=== PATIENT | female | born 1990 | race African-American/Black ===

== ENCOUNTER 2016-09-30 01:49 | Emergency (ER) | payer SELFPAY ==
[2016-09-30] MEDS ORDERED: Acetaminophen 500 MG TAB ONE (02:09)
[2016-09-30] MEDS ORDERED: Ketorolac Tromethamine 30 MG/ML VIAL ONE (02:09)
[2016-09-30] MEDS ORDERED: Ondansetron HCl/PF 4 MG/2 ML Vial ONE (02:09)
[2016-09-30] MEDS ORDERED: Sodium Chloride 0.9% 1,000 ML ONE ×2 (02:09→03:11)
[2016-09-30 02:24] LABS: Bilirubin Negative (Negative); Blood, Urine Negative (Negative); Glucose, Urine (Dipstick) Negative (Negative); Ketone, Urine Negative (Negative); Nitrite Negative (Negative); Protein, Urine (Dipstick) Negative (Neg-Trace)
[2016-09-30 02:32] LABS: Methadone Not Detected (NotDetected); Methamphetamine Not Detected (NotDetected)
[2016-09-30 02:33] LABS: ALT (SGPT) 39 U/L (0-55); AST (SGOT) 32 U/L (5-34); Alkaline Phosphatase 55 U/L (40-150); Anion Gap 13 mmol/L (10-20); BUN (Urea Nitrogen) 9 mg/dL (7.0-18.7); Bilirubin, Total 1.7 mg/dL (0.2-1.2); Calc. Creatinine Clearance 0 mL/min (70-130); Carbon Dioxide 21 mmol/L (22-29); Chloride 107 mmol/L (98-107); Estimated GFR-MDRD Greater than 90; Globulin 3.3 g/dL (2.4-3.5); Protein, Total 7.6 g/dL (6.0-8.3)
[2016-09-30 02:43] LABS: Reticulocyte Count 5.2 % (0.5-1.5)
[2016-09-30 02:56] LABS: Hematocrit 29.9 % (36.0-47.0); Red Blood Cell (RBC) Count 3.69 mill/uL (4.20-5.40); White Blood Cell (WBC) Count 20.2 thou/uL (4.8-10.8)
[2016-09-30 02:57] LABS: Band 9 % (5-11); Mean Platelet Volume 6.2 fL (7.4-10.4); Neutrophil 57 % (42-75)
[2016-09-30 02:58] LABS: Hypochromia MODERATE=16-30 cells (100X) (0-5/hpf); Polychromasia SLIGHT = 2-3 cells (100X) (0-2/hpf); Target Cells MODERATE= 6-15 cells (100X) (0-1/hpf)
[2016-09-30] MEDS ORDERED: HYDROcodone/Acetaminophen 10/325 mg Tablet ONE (03:11)
[2016-09-30] MEDS ORDERED: traMADol HCl 50 MG TAB ONE (03:11)
--- NOTE | 2016-09-30 03:32 | ERRECORD ---
[facility] EMERGENCY RECORD HPI SICKLE CELL (02:06 AGRE) CHIEF COMPLAINT: Patient presents for evaluation of sickle cell crisis. HISTORIAN: History provided by patient, HX OF SICKLE CELL DISEASE AND HAVING PAIN IN BOTH LEGS DUE TO THE CHANGE OF THE WEATHER. DENIES OTHER SYMPTOMS. HAS NOT TAKEN HER PAIN MEDS TODAY BECAUSE WAS AT WORK. PAIN STARTED AROUND 3 PM IN AFTERNOON. LOCATION: No localizing symptoms. QUALITY: Pain is dull in nature, described as aching, described as throbbing. SEVERITY: Maximum severity of symptoms severe, Currently symptoms are severe. TIME COURSE: Gradual onset of symptoms, Symptoms are worsening. CONTEXT: Patient has sickle cell. ASSOCIATED WITH FEMALE: No associated symptoms, No associated nausea, No associated urinary tract infection signs or symptoms, No associated vomiting. EXACERBATED BY: Patient's condition exacerbated by nothing. RELIEVED BY: Patient's condition relieved by nothing. ROS (02:08 AGRE) CONSTITUTIONAL: Historian denies chills, denies fever, denies weakness. EYES: Historian denies eye redness, denies vision changes. ENT: Historian denies sore throat, denies stridor. CARDIOVASCULAR: Historian denies chest pain, denies diaphoresis. RESPIRATORY: Historian denies cough, denies shortness of breath. GI: Historian denies abdominal pain, denies nausea, denies vomiting. MUSCULOSKELETAL: Historian denies back pain, denies neck pain. SKIN: Historian denies skin changes, denies skin lesions. NEUROLOGIC: Historian denies confusion, denies dizziness, denies focal weakness, denies headache. HEMO/LYMPHATIC: Normal hematologic/lymphatic system review, Historian denies petechiae. PSYCHIATRIC: Negative psychiatric review of systems, Historian denies anxiety. PAST MEDICAL HISTORY (:57 [facility]) MEDICAL HISTORY: Flu vaccine up to date, Tetanus immunization up to date, Past medical history includes hematological history, sickle cell disease. 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 Verified 09/30/16. FEMALE SURGICAL HISTORY: Surgical history of section X2, Surgical history of tonsillectomy. Verified 09/30/16. PSYCHIATRIC HISTORY: No previous psychiatric history. Verified 09/30/16. SOCIAL HISTORY: Patient denies alcohol use, Patient denies drug use, Patient has no smoking history, Lives at home, with family, Verified 09/30/16. FAMILY HISTORY: No known family hisotry, Family history is &a-1R&a+25V*p+0X*q2647O*c202B*c15G*c2P*p-0X&a-25V&a+1R Name: Michelle Kumar : 1990 F26 MedRec: [id number] AcctNum: [id number] Prepared: WedSep 30, 2016 04:41 by Interface Page 1 of 4 pMD [facility] EMERGENCY RECORD non-contributory to this case. KNOWN ALLERGIES No Known Allergies (Unconfirmed) No Known Drug Allergies CURRENT MEDICATIONS (01:54 [facility]) acetaminophen-codeine: TABLET : Strength - 300 mg-30 mg : ORAL Patient Dose: 1-2 tab(s) Oral every 6 hours PRN. Ultram: TABLET : Strength - 50 mg : ORAL Patient Dose: 1 tab(s) Oral every 6 hours PRN. VITAL SIGNS VITAL SIGNS: Resp: 18, Pain: 10 (Sharp), Time: 09/30/2016 01:51. (01:51 [facility]) BP: 121/67, Pulse: 84, Temp: 98.5 (Oral), O2 sat: 100 on Room Air, Time: 09/30/2016 01:54. (01:54 [facility]) BP: 117/76, Pulse: 60, Resp: 16, O2 sat: 99 on Room Air, Time: 09/30/2016 02:30. (02:30 [facility]) Pain: 7, Time: 09/30/2016 02:39. (02:39 [facility]) BP: 111/59, Pulse: 57, Resp: 16, O2 sat: 98 on Room Air, Time: 09/30/2016 03:00. (03:00 [facility]) Pain: 7, Time: 09/30/2016 03:10. (03:10 [facility]) BP: 110/61, Pulse: 66, Resp: 16, O2 sat: 100 on Room Air, Time: 09/30/2016 03:30. (03:30 [facility]) BP: 128/68, Pulse: 65, Resp: 16, O2 sat: 97 on Room Air, Time: 09/30/2016 04:00. (04:00 [facility]) BP: 126/70, Pulse: 64, Resp: 16, O2 sat: 100 on Room Air, Time: 09/30/2016 04:30. (04:30 [facility]) Temp: 98.1 (Oral), Pain: 0, Time: 09/30/2016 04:35. (04:35 [facility]) PHYSICAL EXAM (02:08 [facility]) CONSTITUTIONAL: Vital Signs Reviewed, Patient afebrile, Patient appears non toxic, Patient appears pain free, Patient alert and oriented to person, place and time, Nursing notes reviewed. HEAD: Head exam included findings of head atraumatic, normocephalic. EYES: Eye exam included findings of eyelids normal to inspection, Extraocular muscles intact, Conjunctiva normal, Sclera normal. ENT: Ear exam normal, Nose exam normal, Mouth exam normal. NECK: Neck exam normal, Neck exam included findings of normal range of motion, no meningeal signs. RESPIRATORY CHEST: Respiratory and chest exam normal, Respiratory exam included findings of no respiratory distress, Breath sounds clear, No wheezing, No rales, No rhonchi, Breath sounds not diminished. CARDIOVASCULAR: Cardiovascular assessment normal, Cardiovascular exam included findings of heart rate regular rate and rhythm, Heart &a-1R&a+25V*p+0X*o5106K*c202B*c15G*c2P*p-0X&a-25V&a+1R Name: Michelle Kumar : 1990 F26 MedRec: [id number] AcctNum: [id number] Prepared: WedSep 30, 2016 04:41 by Interface Page 2 of 4 pMD [facility] EMERGENCY RECORD sounds normal, normal S1, normal S2, no murmurs, no rub, no gallop. ABDOMEN FEMALE: Abdominal exam normal, Abdominal exam included findings of abdomen nontender, Bowel sounds normal, Liver normal, Spleen normal, no distension, no mass, no pulsatile masses. BACK: Back exam included findings of normal inspection, range of motion normal. UPPER EXTREMITY: Upper extremity exam included findings of inspection normal, Range of motion normal. LOWER EXTREMITY: Lower extremity exam included findings of inspection normal, Range of motion normal, Motor strength normal, Pedal pulse normal, Stephany's negative, no cyanosis, no clubbing, no edema, no calf tenderness, NO TENDERNESS TO PALPATION, NO SWELLING OR REDNESS OVER THE JOINTS OR PAIN WITH R.O.M. OF THE JOINTS. NEURO: Neuro exam normal, Neuro exam findings include patient oriented to person, place and time, Speech normal, Memory normal, Cranial nerves intact, no focal motor deficits. SKIN: Skin exam included findings of skin warm, dry, and normal in color. PSYCHIATRIC: Psychiatric exam normal, Normal affect. MEDICATION ADMINISTRATION SUMMARY Drug Name: sodium chloride 0.9 % intravenous, Dose Ordered: 1000 mL, Route: IV Fluid Infusion, Status: Given, Time: 03:17 09/30/2016, Drug Name: HYDROcodone-acetaminophen, Dose Ordered: 10/325 tab(s), Route: Oral, Status: Given, Time: 03:15 09/30/2016, Drug Name: Tylenol Extra Strength, Dose Ordered: 1000 mg, Route: Oral, Status: Given, Time: 02:20 09/30/2016, Drug Name: morphine injection, Dose Ordered: 4 mg, Route: IV Push, Status: Given, Time: 02:15 09/30/2016, Drug Name: ondansetron HCl intravenous, Dose Ordered: 4 mg, Route: IV Push, Status: Given, Time: 02:15 09/30/2016, Drug Name: ketorolac injection, Dose Ordered: 30 mg, Route: IV Push, Status: Given, Time: 02:13 09/30/2016, Drug Name: sodium chloride 0.9 % intravenous, Dose Ordered: 1000 mL, Route: IV Fluid Infusion, Status: Given, Time: 02:11 09/30/2016, Detailed record available in Medication Service section. DOCTOR NOTES RE-EVALUATION: Routine re-evaluation, after administration of analgesics, The patient's condition has improved. (02:52 AGRE) Routine re-evaluation, after administration of analgesics, The patient's condition has improved. (03:18 AGRE) TEXT: VS STABLE AND PATIENT IS COMFORTABLE AFTER MEDICATION WITH MORPHINE. IS VERY DROWSY. LOOKS MUCH BETTER. (02:52 AGRE) DISCUSSED WITH HER FINDINGS ON EXAM, RESULTS OF LABS, PENDING BLOOD CULTURES, MANAGEMENT OF HER PAIN, NEED FOR FOLLOW UP. SHE EXPRESSED UNDERSTANDING AND AGREEMENT WITH THIS PLAN. (03:18 AGRE) PATIENT STATUS: Patient has improved since arrival to emergency &a-1R&a+25V*p+0X*n5239X*c202B*c15G*c2P*p-0X&a-25V&a+1R Name: Michelle Kumar : 1990 F26 MedRec: [id number] AcctNum: [id number] Prepared: WedSep 30, 2016 04:41 by Interface Page 3 of 4 pMD [facility] EMERGENCY RECORD department. (02:52 AGRE) Patient has improved since arrival to emergency department. (03:18 AGRE) PATIENT PLAN: The patient will be discharged. (03:18 AGRE) DATA REVIEWED: Old records obtained, Old records reviewed, Lab data reviewed. PATIENT HAS PREVIOUS EPISODES OF LEUKOCYTOSIS WITH HER PAIN CRISIS. SINCE SHE HAS NO OTHER SYMPTOMS DOUBT INFECTIOUS ETIOLOGY BUT WILL SEND BLOOD CULTURES TO VERIFY. (02:52 AGRE) PROBLEM LIST No recorded problems DIAGNOSIS (02:51 AGRE) FINAL: PRIMARY: Sickle cell crisis. PRESCRIPTION No recorded prescriptions DISPOSITION PATIENT: Disposition Type: Discharge, Disposition: *Discharge Home, Condition: Improved. (03:16 AGRE) Patient left the department. (04:38 [facility]) Mccain: AGRE=MD Roney, Ricardo RC=JENNIFER Remy, Fouzia &a-1R&a+25V*p+0X*g5457R*c202B*c15G*c2P*p-0X&a-25V&a+1R Name: Michelle Kumar : 1990 F26 MedRec: [id number] AcctNum: [id number] Prepared: WedSep 30, 2016 04:41 by Interface Page 4 of 4 pMD [facility]TDD
--- NOTE | 2016-09-30 03:40 | PICIS ---
[facility] EMERGENCY RECORD TRIAGE (WedSep 30, 2016 01:54 [facility]) TRIAGE NOTES: SICKLE CELL CRISIS. C/O BILATERAL LEG PAIN SINCE NOON YESTERDAY (09/29/15). VOMITED X1 AT 2PM DUE TO PAIN PER PT. (WedSep 30, 2016 01:54 [facility]) PATIENT: NAME: Michelle Kumar, AGE: 26, GENDER: female, : [facility] 1990, TIME OF GREET: WedSep 30, 2016 01:50, PREFERRED LANGUAGE: Lebanese, ETHNICITY: Not or , HIGH ALERT: HIGH ALERT 3, ECODE BILLING MAP: [facility], SSN: [id number], Zip Code: [address], KG WEIGHT: 74.21, PHONE: , , , PERSON ID: [id number], PCP: Gela Ness, /[place]. (WedSep 30, 2016 01:54 [facility]) COMPLAINT: SICKLE CELL. (WedSep 30, 2016 01:54 [facility]) ADMISSION: URGENCY: 3 Urgent, ADMISSION SOURCE: Home, TRANSPORT: CAR, BED: ER -04. (WedSep 30, 2016 01:54 [facility]) PAIN: Patient complains of pain described as, sharp, on a scale 0-10 patient rates pain as 10, Location BILATERAL LEGS, Pain is constant, Onset was 09/29/2016 12:00. (01:57 [facility]) IMMUNIZATIONS: Flu vaccine up to date, Tetanus immunization up to date. (01:57 [facility]) SIRS SCORING: Heart Rate 55-109 (0), Temp range 96.8-101.1 (0), respiratory rate 12-24 (0), Mental Status altered: no (0). (01:57 [facility]) TRIAGE SCREENING: Patient denies suicidal ideation, Patient denies presence of domestic violence. (01:57 [facility]) TREATMENTS IN PROGRESS: Treatments given Prehospital: NONE. (01:57 [facility]) PROVIDERS: TRIAGE NURSE: Fouzia Remy RN. (WedSep 30, 2016 01:54 [facility]) VITAL SIGNS: Resp 18, Pain 10, (Sharp), Time 09/30/2016 01:51. (01:51 [facility]) BP 121/67, Pulse 84, Temp 98.5, (Oral), O2 Sat 100, on Room Air, Time 09/30/2016 01:54. (01:54 [facility]) PREVIOUS VISIT ALLERGIES: No Known Drug Allergies. (WedSep 30, 2016 01:54 [facility]) No Known Drug Allergies. (01:57 [facility]) KNOWN ALLERGIES No Known Allergies (Unconfirmed) No Known Drug Allergies CURRENT MEDICATIONS (01:54 [facility]) acetaminophen-codeine: TABLET : Strength - 300 mg-30 mg : ORAL Patient Dose: 1-2 tab(s) Oral every 6 hours PRN. Ultram: TABLET : Strength - 50 mg : ORAL Patient Dose: 1 tab(s) Oral every 6 hours PRN. &a-1R&a+25V*p+0X*t0273H*c202B*c15G*c2P*p-0X&a-25V&a+1R Name: Michelle Kumar : 1990 F26 MedRec: [id number] AcctNum: [id number] Prepared: WedSep 30, 2016 04:47 by Interface Page 1 of 10 pMD [facility] EMERGENCY RECORD VITAL SIGNS VITAL SIGNS: Resp: 18, Pain: 10 (Sharp), Time: 09/30/2016 01:51. (01:51 [facility]) BP: 121/67, Pulse: 84, Temp: 98.5 (Oral), O2 sat: 100 on Room Air, Time: 09/30/2016 01:54. (01:54 [facility]) BP: 117/76, Pulse: 60, Resp: 16, O2 sat: 99 on Room Air, Time: 09/30/2016 02:30. (02:30 [facility]) Pain: 7, Time: 09/30/2016 02:39. (02:39 [facility]) BP: 111/59, Pulse: 57, Resp: 16, O2 sat: 98 on Room Air, Time: 09/30/2016 03:00. (03:00 [facility]) Pain: 7, Time: 09/30/2016 03:10. (03:10 [facility]) BP: 110/61, Pulse: 66, Resp: 16, O2 sat: 100 on Room Air, Time: 09/30/2016 03:30. (03:30 [facility]) BP: 128/68, Pulse: 65, Resp: 16, O2 sat: 97 on Room Air, Time: 09/30/2016 04:00. (04:00 [facility]) BP: 126/70, Pulse: 64, Resp: 16, O2 sat: 100 on Room Air, Time: 09/30/2016 04:30. (04:30 [facility]) Temp: 98.1 (Oral), Pain: 0, Time: 09/30/2016 04:35. (04:35 [facility]) NURSING ASSESSMENT: EXTREMITY LOWER (01:58 [facility]) CONSTITUTIONAL: Complex assessment performed, Patient arrives, via hospital wheelchair, Unsteady gait, STANDBY ASSIST NEEDED DUE TO LEG WEAKNESS, History obtained from patient, Patient appears, in distress due to pain, Patient cooperative, Patient alert, Oriented to person, place and time, Skin warm, Skin dry, Skin normal in color, Mucous membranes pink, Mucous membranes moist, Patient is well-groomed, Patient complains of BILATERAL LEG PAIN, DUE TO SICKLE CELL. PAIN: sharp pain, to the left lower leg, to the right lower leg, Onset of pain 09/29/2016 12:00, constant, on a scale 0-10 patient rates pain as 10. LEFT LOWER EXTREMITY: Left lower extremity assessment findings include capillary refill less than 2 seconds, Skin color normal, Skin temperature warm, Distal sensation intact, Muscle tone normal, posterior tibia pulse is +3, dorsalis pedis pulse is +3, Inspection findings include no redness, Inspection findings include no swelling, Notes: NO TENDERNESS TO PALPATION. RIGHT LOWER EXTREMITY: Right lower extremity assessment findings include capillary refill less than 2 seconds, Skin color normal, Skin temperature warm, Distal sensation intact, Muscle tone normal, posterior tibia pulse is +3, dorsalis pedis pulse is +3, Inspection findings include no redness, Inspection findings include no swelling, Notes: NO TENDERNESS TO PALPATION. NOTES: Notes: PT STATES THE PAIN STARTED YESTERDAY AROUND 12PM. REPORTS 1 EPISODE OF VOMITING AT 2PM DUE TO SEVERE PAIN. PT STATES SHE WENT TO WORK AT 4PM AND THE PAIN CONTINUED TO GET WORSE. HER BOSS WOULD NOT ALLOW HER TO LEAVE EARLY PER PT. PT CAME TO ER STRAIGHT FROM HER JOB. SAFETY: Side rails up, Cart/Stretcher in lowest position, Family &a-1R&a+25V*p+0X*i1836C*c202B*c15G*c2P*p-0X&a-25V&a+1R Name: Michelle Kumar : 1990 F26 MedRec: [id number] AcctNum: [id number] Prepared: WedSep 30, 2016 04:47 by Interface Page 2 of 10 pMD [facility] EMERGENCY RECORD at bedside, Call light within reach, Hospital ID band on. NURSING PROCEDURE: DISCHARGE NOTE (04:37 [facility]) DISCHARGE: Patient discharged to home, ambulating without assistance, family driving, accompanied by //partner, Summary of Care printed/ provided, Discharge instructions given to patient, Simple or moderate discharge teaching performed, by JENNIFER Fragoso, discharge instructions reviewed with patient using teachback method. pt instructed to drink lots of fluids. continue Tylenol with codeine and take 600mg motrin Q6H in addition to prescription medications. follow up with PCP in the morning., Above person(s) verbalized understanding of discharge instructions and follow-up care. BELONGINGS: Belongings and valuables with patient upon arrival to the Emergency Department include:, Belongings and valuables with patient at time of discharge include:, Belongings remain with patient, Valuables remain with patient. NURSING PROCEDURE: IV PATIENT IDENITIFIER: Patient actively involved in identification process, Patient's identity verified by patient stating name, Patient's identity verified by patient stating date, Patient's identity verified by hospital ID bralisbethet. (02:00 [facility]) IV SITE 1: IV therapy indicated for hydration, IV therapy indicated for medication administration, IV established, to the right wrist, using a 22 gauge catheter, in one attempt, IV site prepped with Chloroprep, Saline lock established, Flushed with normal saline (mls): 10mLs, Labs drawn at time of placement, labeled in the presence of the patient and sent to lab, Notes: IV site C/D/I. no pain, redness, or swelling. IV start kit/extension tubing used. (02:00 [facility]) FOLLOW-UP SITE 1: After procedure, no drainage at IV site, After procedure, no swelling at IV site, After procedure, no redness at IV site, IV discontinued, due to patient being discharged, catheter intact. (04:32 [facility]) SAFETY: Side rails up, Cart/Stretcher in lowest position, Call light within reach, Hospital ID band on. (02:00 [facility]) NURSING PROCEDURE: NURSE NOTES NURSES NOTES: Notes: PILLOW AND WARM BLANKETS GIVEN TO PATIENT FOR COMFORT. (02:10 [facility]) Notes: PT RESTING IN BED WITH EYES CLOSED. WHEN ASKED IF SHE WAS FEELING BETTER PT SHOOK HER HEAD NO. RATES PAIN 7/10 AT THIS TIME. (02:38 [facility]) NURSING PROCEDURE: URINE COLLECTION (02:08 [facility]) PATIENT IDENTIFIER: Patient actively involved in identification process, Patient's identity verified by patient stating name, Patient's identity verified by patient stating date, Patient's identity verified by hospital ID bracelet. &a-1R&a+25V*p+0X*x1345V*c202B*c15G*c2P*p-0X&a-25V&a+1R Name: Michelle Kumar : 1990 F26 MedRec: [id number] AcctNum: [id number] Prepared: WedSep 30, 2016 04:47 by Interface Page 3 of 10 pMD [facility] EMERGENCY RECORD URINE COLLECTION FEMALE: Urine collected by void, urine yellow in color, and clear, Specimen labeled in the presence of the patient and sent to lab. SAFETY: Side rails up, Cart/Stretcher in lowest position, Call light within reach, Hospital ID band on. ORDER DETAILS Order Name: CBC with Differential, Status: Active, Time: 02:03 09/30/2016, User: CHRIS, - Ordered for: MD Sim Andrea, - Entered by: MD Sim Andrea - WedSep 30, 2016 02:03, - Quantity: 1, Order Name: Comprehensive Metabolic Panel, Status: Active, Time: 02:03 09/30/2016, User: CHRIS, - Ordered for: MD Sim Andrea, - Entered by: MD Sim Andrea - WedSep 30, 2016 02:03, - Quantity: 1, Order Name: Drug Screen, Urine, Status: Active, Time: 02:06 09/30/2016, User: CHRIS, - Ordered for: MD Sim Andrea, - Entered by: MD Sim Andrea - WedSep 30, 2016 02:06, - Quantity: 1, Order Name: Miscellaneous Nurse Order(s), Status: Done, Time: 03:18 09/30/2016, User: CRISTIAN, - Ordered for: MD Sim Andrea, - Entered by: MD Sim Andrea - WedSep 30, 2016 03:17, - Quantity: 1, Order Name: Test, Urine (BHCG), Status: Active, Time: 02:06 09/30/2016, User: CHRIS, - Ordered for: MD Sim Andrea, - Entered by: MD Sim Andrea - WedSep 30, 2016 02:06, - Quantity: 1, Order Name: Reticulocyte (RETIC) Count, Status: Active, Time: 02:03 09/30/2016, User: CHRIS, - Ordered for: MD Sim Andrea, - Entered by: MD Sim Andrea - WedSep 30, 2016 02:03, - Quantity: 1, Order Name: SALINE LOCK, Status: Done, Time: 02:06 09/30/2016, User: CRISTIAN, - Ordered for: MD Sim Andrea, - Entered by: MD Sim Andrea - WedSep 30, 2016 02:03, - Quantity: 1, Order Name: Urinalysis w/ Rflx Microscopic, Status: Active, Time: 02:06 09/30/2016, User: CHRIS, - Ordered for: MD Sim Andrea, - Entered by: MD Sim Andrea - WedSep 30, 2016 02:06, - Quantity: 1. MEDICATION ADMINISTRATION SUMMARY &a-1R&a+25V*p+0X*w6614F*c202B*c15G*c2P*p-0X&a-25V&a+1R Name: Michelle Kumar Peewee : 1990 F26 MedRec: [id number] AcctNum: [id number] Prepared: WedSep 30, 2016 04:47 by Interface Page 4 of 10 pMD [facility] EMERGENCY RECORD Drug Name: sodium chloride 0.9 % intravenous, Dose Ordered: 1000 mL, Route: IV Fluid Infusion, Status: Given, Time: 03:17 09/30/2016, Drug Name: HYDROcodone-acetaminophen, Dose Ordered: 10/325 tab(s), Route: Oral, Status: Given, Time: 03:15 09/30/2016, Drug Name: Tylenol Extra Strength, Dose Ordered: 1000 mg, Route: Oral, Status: Given, Time: 02:20 09/30/2016, Drug Name: morphine injection, Dose Ordered: 4 mg, Route: IV Push, Status: Given, Time: 02:15 09/30/2016, Drug Name: ondansetron HCl intravenous, Dose Ordered: 4 mg, Route: IV Push, Status: Given, Time: 02:15 09/30/2016, Drug Name: ketorolac injection, Dose Ordered: 30 mg, Route: IV Push, Status: Given, Time: 02:13 09/30/2016, Drug Name: sodium chloride 0.9 % intravenous, Dose Ordered: 1000 mL, Route: IV Fluid Infusion, Status: Given, Time: 02:11 09/30/2016, Detailed record available in Medication Service section. MEDICATION SERVICE HYDROcodone-acetaminophen: Order: HYDROcodone-acetaminophen (hydrocodone bitartrate/acetaminophen) - Dose: 10/325 tab(s) : Oral Ordered by: Ricardo Sim MD Entered by: Ricardo Sim MD WedSep 30, 2016 03:10 , Acknowledged by: Fouzia Remy RN WedSep 30, 2016 03:12 Documented as given by: Fouzia Remy RN WedSep 30, 2016 03:15 Patient, Medication, Dose, Route and Time verified prior to administration. Amount given: 10/325MG, Site: Medication administered P.O., Patient appears Slightly drowsey, easily aroused-acceptable, Correct patient, time, route, dose and medication confirmed prior to administration, Patient advised of actions and side-effects prior to administration, Allergies confirmed and medications reviewed prior to administration. ketorolac injection: Order: ketorolac injection (ketorolac tromethamine) - Dose: 30 mg : IV Push Ordered by: Ricardo Sim MD Entered by: Ricardo Sim MD WedSep 30, 2016 02:05 , Acknowledged by: Fouzia Remy RN WedSep 30, 2016 02:06 Documented as given by: Fouzia Remy RN WedSep 30, 2016 02:13 Patient, Medication, Dose, Route and Time verified prior to administration. Amount given: 30MG, IV SITE #1 IVP, initial medication, Slowly, Awake and alert- acceptable, Catheter placement confirmed via flush prior to administration, IV site without signs or symptoms of infiltration during medication administration, No swelling during administration, No drainage during administration, IV flushed after administration, Correct patient, time, route, dose and medication confirmed prior to administration, Patient advised of actions and side-effects prior to administration, Allergies confirmed and medications reviewed prior to administration. : Follow Up : No signs or symptoms of allergic reaction noted, &a-1R&a+25V*p+0X*i5597V*c202B*c15G*c2P*p-0X&a-25V&a+1R Name: Michelle Kumar : 1990 F26 MedRec: [id number] AcctNum: [id number] Prepared: WedSep 30, 2016 04:47 by Interface Page 5 of 10 pMD [facility] EMERGENCY RECORD Decreased pain, _IV SITE #1:_. (03:00 [facility]) morphine injection: Order: morphine injection (morphine sulfate) - Dose: 4 mg : IV Push Ordered by: Ricardo Sim MD Entered by: Ricardo Sim MD WedSep 30, 2016 02:04 , Acknowledged by: Fouzia Remy RN WedSep 30, 2016 02:06 Documented as given by: Fouzia Remy RN WedSep 30, 2016 02:15 Patient, Medication, Dose, Route and Time verified prior to administration. Amount given: 4MG, IV SITE #1 IVP, subsequent different medication, Slowly, Awake and alert- acceptable, Catheter placement confirmed via flush prior to administration, IV site without signs or symptoms of infiltration during medication administration, No swelling during administration, No drainage during administration, IV flushed after administration, Correct patient, time, route, dose and medication confirmed prior to administration, Patient advised of actions and side-effects prior to administration, Allergies confirmed and medications reviewed prior to administration. : Follow Up : No signs or symptoms of allergic reaction noted, Decreased pain, _IV SITE #1:_. (03:00 [facility]) ondansetron HCl intravenous: Order: ondansetron HCl intravenous (ondansetron HCl) - Dose: 4 mg : IV Push Ordered by: Ricardo Sim MD Entered by: Ricardo Sim MD WedSep 30, 2016 02:05 , Acknowledged by: Fouzia Remy RN WedSep 30, 2016 02:06 Documented as given by: Fouzia Remy RN WedSep 30, 2016 02:15 Patient, Medication, Dose, Route and Time verified prior to administration. Amount given: 4MG, IV SITE #1 IVP, subsequent different medication, Slowly, Awake and alert- acceptable, Catheter placement confirmed via flush prior to administration, IV site without signs or symptoms of infiltration during medication administration, No swelling during administration, No drainage during administration, IV flushed after administration, Correct patient, time, route, dose and medication confirmed prior to administration, Patient advised of actions and side-effects prior to administration, Allergies confirmed and medications reviewed prior to administration. sodium chloride 0.9 % intravenous: Order: sodium chloride 0.9 % intravenous (0.9 % sodium chloride) - Dose: 1000 mL : IV Fluid Infusion Ordered by: Ricardo Sim MD Entered by: Ricardo Sim MD WedSep 30, 2016 02:11 , Acknowledged by: Fouzia Remy RN WedSep 30, 2016 02:20 Documented as given by: Fouzia Remy RN WedSep 30, 2016 02:11 Patient, Medication, Dose, Route and Time verified prior to administration. IV SITE #1 IV fluids established for hydration, IV SITE #1 into right wrist, IV SITE #1 1st bag hung, amount 1 Liter hung, IV SITE #1 bolus of 1000 ml established, IV SITE #1 Rate of bolus, wide open, 1000 ml/hr, via primary tubing, via pump tubing, Awake and alert- &a-1R&a+25V*p+0X*k7998D*c202B*c15G*c2P*p-0X&a-25V&a+1R Name: Michelle Kumar : 1990 F26 MedRec: [id number] AcctNum: [id number] Prepared: WedSep 30, 2016 04:47 by Interface Page 6 of 10 pMD [facility] EMERGENCY RECORD acceptable, Catheter placement confirmed via flush prior to administration, IV site without signs or symptoms of infiltration during medication administration, No swelling during administration, No drainage during administration, IV flushed after administration, Correct patient, time, route, dose and medication confirmed prior to administration, Patient advised of actions and side-effects prior to administration, Allergies confirmed and medications reviewed prior to administration. : Follow Up : No signs or symptoms of allergic reaction noted, _IV SITE #1:_, IV fluid infusion discontinued, on WedSep 30, 2016 03:17, Total fluid hydration time IV site 1 1 hour, 10 minutes, ., Total amount infused: 1L. (03:17 [facility]) sodium chloride 0.9 % intravenous: Order: sodium chloride 0.9 % intravenous (0.9 % sodium chloride) - Dose: 1000 mL : IV Fluid Infusion Ordered by: Ricardo Sim MD Entered by: Ricardo Sim MD WedSep 30, 2016 03:11 , Acknowledged by: Fouzia Remy RN WedSep 30, 2016 03:13 Documented as given by: Fouzia Remy RN WedSep 30, 2016 03:17 Patient, Medication, Dose, Route and Time verified prior to administration. IV SITE #1 IV fluids established for hydration, IV SITE #1 into right wrist, IV SITE #1 2nd bag hung, amount 1 Liter hung, IV SITE #1 bolus of 1000 ml established, IV SITE #1 Rate of bolus, wide open, 1000 ml/hr, via primary tubing, via pump tubing, Slightly drowsey, easily aroused-acceptable, Catheter placement confirmed via flush prior to administration, IV site without signs or symptoms of infiltration during medication administration, No swelling during administration, No drainage during administration, IV flushed after administration, Correct patient, time, route, dose and medication confirmed prior to administration, Patient advised of actions and side-effects prior to administration, Allergies confirmed and medications reviewed prior to administration. : Follow Up : No signs or symptoms of allergic reaction noted, _IV SITE #1:_, IV fluid infusion discontinued, on WedSep 30, 2016 04:30, Total fluid hydration time IV site 1 1 hour, 15 minutes, ., Total amount infused: 1L. (04:30 [facility]) Tylenol Extra Strength: Order: Tylenol Extra Strength (acetaminophen) - Dose: 1000 mg : Oral Ordered by: Ricardo Sim MD Entered by: Ricardo Sim MD WedSep 30, 2016 02:04 , Acknowledged by: Fouzia Remy RN WedSep 30, 2016 02:06 Documented as given by: Fouzia Remy RN WedSep 30, 2016 02:20 Patient, Medication, Dose, Route and Time verified prior to administration. Amount given: 1000MG, Site: Medication administered P.O., Patient appears Awake and alert- acceptable, Correct patient, time, route, dose and medication confirmed prior to administration, Patient advised of actions and side-effects prior to administration, Allergies confirmed and medications reviewed prior to administration. &a-1R&a+25V*p+0X*z9098D*c202B*c15G*c2P*p-0X&a-25V&a+1R Name: Michelle Kumar : 1990 F26 MedRec: [id number] AcctNum: [id number] Prepared: WedSep 30, 2016 04:47 by Interface Page 7 of 10 pMD [facility] EMERGENCY RECORD HPI SICKLE CELL (02:06 [facility]) CHIEF COMPLAINT: Patient presents for evaluation of sickle cell crisis. HISTORIAN: History provided by patient, HX OF SICKLE CELL DISEASE AND HAVING PAIN IN BOTH LEGS DUE TO THE CHANGE OF THE WEATHER. DENIES OTHER SYMPTOMS. HAS NOT TAKEN HER PAIN MEDS TODAY BECAUSE WAS AT WORK. PAIN STARTED AROUND 3 PM IN AFTERNOON. LOCATION: No localizing symptoms. QUALITY: Pain is dull in nature, described as aching, described as throbbing. SEVERITY: Maximum severity of symptoms severe, Currently symptoms are severe. TIME COURSE: Gradual onset of symptoms, Symptoms are worsening. CONTEXT: Patient has sickle cell. ASSOCIATED WITH FEMALE: No associated symptoms, No associated nausea, No associated urinary tract infection signs or symptoms, No associated vomiting. EXACERBATED BY: Patient's condition exacerbated by nothing. RELIEVED BY: Patient's condition relieved by nothing. ROS (02:08 [facility]) CONSTITUTIONAL: Historian denies chills, denies fever, denies weakness. EYES: Historian denies eye redness, denies vision changes. ENT: Historian denies sore throat, denies stridor. CARDIOVASCULAR: Historian denies chest pain, denies diaphoresis. RESPIRATORY: Historian denies cough, denies shortness of breath. GI: Historian denies abdominal pain, denies nausea, denies vomiting. MUSCULOSKELETAL: Historian denies back pain, denies neck pain. SKIN: Historian denies skin changes, denies skin lesions. NEUROLOGIC: Historian denies confusion, denies dizziness, denies focal weakness, denies headache. HEMO/LYMPHATIC: Normal hematologic/lymphatic system review, Historian denies petechiae. PSYCHIATRIC: Negative psychiatric review of systems, Historian denies anxiety. PAST MEDICAL HISTORY (01:57 [facility]) MEDICAL HISTORY: Flu vaccine up to date, Tetanus immunization up to date, Past medical history includes hematological history, sickle cell disease. 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 Verified 09/30/16. FEMALE SURGICAL HISTORY: Surgical history of section X2, Surgical history of tonsillectomy. Verified 09/30/16. PSYCHIATRIC HISTORY: No previous psychiatric history. Verified 09/30/16. SOCIAL HISTORY: Patient denies alcohol use, Patient denies drug use, Patient has no smoking history, Lives at home, with family, Verified 09/30/16. &a-1R&a+25V*p+0X*t5568N*c202B*c15G*c2P*p-0X&a-25V&a+1R Name: Michelle Kumar : 1990 F26 MedRec: [id number] AcctNum: [id number] Prepared: WedSep 30, 2016 04:47 by Interface Page 8 of 10 pMD [facility] EMERGENCY RECORD FAMILY HISTORY: No known family hisotry, Family history is non-contributory to this case. PHYSICAL EXAM (02:08 [facility]) CONSTITUTIONAL: Vital Signs Reviewed, Patient afebrile, Patient appears non toxic, Patient appears pain free, Patient alert and oriented to person, place and time, Nursing notes reviewed. HEAD: Head exam included findings of head atraumatic, normocephalic. EYES: Eye exam included findings of eyelids normal to inspection, Extraocular muscles intact, Conjunctiva normal, Sclera normal. ENT: Ear exam normal, Nose exam normal, Mouth exam normal. NECK: Neck exam normal, Neck exam included findings of normal range of motion, no meningeal signs. RESPIRATORY CHEST: Respiratory and chest exam normal, Respiratory exam included findings of no respiratory distress, Breath sounds clear, No wheezing, No rales, No rhonchi, Breath sounds not diminished. CARDIOVASCULAR: Cardiovascular assessment normal, Cardiovascular exam included findings of heart rate regular rate and rhythm, Heart sounds normal, normal S1, normal S2, no murmurs, no rub, no gallop. ABDOMEN FEMALE: Abdominal exam normal, Abdominal exam included findings of abdomen nontender, Bowel sounds normal, Liver normal, Spleen normal, no distension, no mass, no pulsatile masses. BACK: Back exam included findings of normal inspection, range of motion normal. UPPER EXTREMITY: Upper extremity exam included findings of inspection normal, Range of motion normal. LOWER EXTREMITY: Lower extremity exam included findings of inspection normal, Range of motion normal, Motor strength normal, Pedal pulse normal, Stephany's negative, no cyanosis, no clubbing, no edema, no calf tenderness, NO TENDERNESS TO PALPATION, NO SWELLING OR REDNESS OVER THE JOINTS OR PAIN WITH R.O.M. OF THE JOINTS. NEURO: Neuro exam normal, Neuro exam findings include patient oriented to person, place and time, Speech normal, Memory normal, Cranial nerves intact, no focal motor deficits. SKIN: Skin exam included findings of skin warm, dry, and normal in color. PSYCHIATRIC: Psychiatric exam normal, Normal affect. LAB INTERPRETATION (02:37 AGRE) INTERPRETATION: Chemistry abnormal, Bicarbonate decreased, Liver functions normal, Urinalysis normal, Urine toxicology negative, Urine HCG negative, RETIC COUNT 5.2. EVENTS TRANSFER: Triage to Emergency Emergency Room -04. (WedSep 30, 2016 01:54 [facility]) Removed from Emergency Emergency Room -04. (04:38 [facility]) &a-1R&a+25V*p+0X*[id number]*c202B*c15G*c2P*p-0X&a-25V&a+1R Name: Michelle Kumar : 1990 F26 MedRec: [id number] AcctNum: [id number] Prepared: WedSep 30, 2016 04:47 by Interface Page 9 of 10 D [facility] EMERGENCY RECORD DOCTOR NOTES RE-EVALUATION: Routine re-evaluation, after administration of analgesics, The patient's condition has improved. (02:52 AGRE) Routine re-evaluation, after administration of analgesics, The patient's condition has improved. (03:18 AGRE) TEXT: VS STABLE AND PATIENT IS COMFORTABLE AFTER MEDICATION WITH MORPHINE. IS VERY DROWSY. LOOKS MUCH BETTER. (02:52 AGRE) DISCUSSED WITH HER FINDINGS ON EXAM, RESULTS OF LABS, PENDING BLOOD CULTURES, MANAGEMENT OF HER PAIN, NEED FOR FOLLOW UP. SHE EXPRESSED UNDERSTANDING AND AGREEMENT WITH THIS PLAN. (03:18 AGRE) PATIENT STATUS: Patient has improved since arrival to emergency department. (02:52 AGRE) Patient has improved since arrival to emergency department. (03:18 AGRE) PATIENT PLAN: The patient will be discharged. (03:18 AGRE) DATA REVIEWED: Old records obtained, Old records reviewed, Lab data reviewed. PATIENT HAS PREVIOUS EPISODES OF LEUKOCYTOSIS WITH HER PAIN CRISIS. SINCE SHE HAS NO OTHER SYMPTOMS DOUBT INFECTIOUS ETIOLOGY BUT WILL SEND BLOOD CULTURES TO VERIFY. (02:52 AGRE) PROBLEM LIST No recorded problems DIAGNOSIS (02:51 AGRE) FINAL: PRIMARY: Sickle cell crisis. DISPOSITION PATIENT: Disposition Type: Discharge, Disposition: *Discharge Home, Condition: Improved. (03:16 AGRE) Patient left the department. (04:38 [facility]) INSTRUCTION (02:52 AGRE) DISCHARGE: PAIN CRISIS SICKLE CELL. FOLLOWUP: [facility], [facility], [address] [place] [id number], . SPECIAL: TAKE LOTS OF FLUIDS. CONTINUE YOUR TYLENOL WITH CODEINE AND TAKE MOTRIN 600 MG EVERY 6 HOURS IN ADDITION TO THE PRESCRIPTIOM MEDICATIONS YOU ARE TAKING. FOLLOW UP WITH YOUR PRIMARY CARE PHYSICIAN IN THE MORNING. PRESCRIPTION No recorded prescriptions ADMIN (03:24 AGRE) DIGITAL SIGNATURE: MD Sim Andrea. Mccain: CHRIS=MD Sim Andrea [facility]=JENNIFER Remy, Fouzia &a-1R&a+25V*p+0X*[id number]*c202B*c15G*c2P*p-0X&a-25V&a+1R Name: Michelle Kumar Peewee : 1990 F26 MedRec: [id number] AcctNum: [id number] Prepared: WedSep 30, 2016 04:47 by Interface Page 10 of 10 pMD MTDD
== END 2016-09-30 04:37 | disposition home or self-care (01) ==
LOC: NAV ERS 01:49
DX: D57.00 Hb-SS disease with crisis, unspecified (principal); Z79.899 Other long term (current) drug therapy
CPT/HCPCS: 80053; 80306; 81003; 81025; 85025; 85046; 96361; 96374; 96375; J1885; J2270; J2405; J7050

== ENCOUNTER 2017-01-20 23:28 | Emergency (ER) | payer SELFPAY ==
[2017-01-21] MEDS ORDERED: Sodium Chloride 0.9% 1,000 ML ONE (00:19)
[2017-01-21] MEDS ORDERED: Ondansetron HCl/PF 4 MG/2 ML Vial ONE (00:19)
[2017-01-21 00:25] LABS: Band 2 % (5-11); Eosinophils 1 % (0-10); Hemoglobin 10.6 g/dL (12.0-16.0); Lymphocytes 39 % (21-51); MDiff Complete? YES; Mean Corpuscular HGB CONC 35.5 g/dL (32.0-36.0); Mean Corpuscular Hemoglobin 28.5 pg (27.0-31.0); Mean Corpuscular Volume 80.2 fl (81.0-99.0); Mean Platelet Volume 6.7 fL (7.4-10.4); Monocytes 9 % (0-10); Neutrophil 49 % (42-75); Nucleated RBC 3 % (0); PLT Morphology Comment Appears Adequate; Platelet Count 285 thou/uL (130-400); RBC Distribution Width 14.1 % (11.5-14.5); Red Blood Cell (RBC) Count 3.74 mill/uL (4.20-5.40); Sickle Cells MODERATE= 6-15 cells (100X) (None Seen)
[2017-01-21 00:28] LABS: White Blood Cell (WBC) Count 17.6 thou/uL (4.8-10.8)
[2017-01-21 00:39] LABS: ALT (SGPT) 17 U/L (8-55); AST (SGOT) 19 U/L (5-34); Albumin 4.5 g/dL (3.5-5.0); Alkaline Phosphatase 51 U/L (40-150); Anion Gap 14 mmol/L (10-20); BUN (Urea Nitrogen) 9 mg/dL (7.0-18.7); Bilirubin, Total 1.8 mg/dL (0.2-1.2); Calc. Creatinine Clearance 0 mL/min (70-130); Calcium 9.5 mg/dL (7.8-10.44); Carbon Dioxide 21 mmol/L (22-29); Chloride 107 mmol/L (98-107); Estimated GFR-MDRD Greater than 90; Globulin 3.7 g/dL (2.4-3.5); Glucose 77 mg/dL (70-105); Potassium 3.7 mmol/L (3.5-5.1); Protein, Total 8.2 g/dL (6.0-8.3); Sodium 138 mmol/L (136-145)
== END 2017-01-21 01:50 | disposition home or self-care (01) ==
LOC: NAV ERS 23:28
DX: D57.00 Hb-SS disease with crisis, unspecified (principal)
CPT/HCPCS: 36415; 80053; 85025; 96361; 96374; 96375; J2270; J2405; J7050

== ENCOUNTER 2017-02-11 10:42 | Emergency (ER) | payer SELFPAY ==
[2017-02-11 11:27] LABS: Bilirubin Negative (Negative); Blood, Urine Negative (Negative); Clarity Clear (Clear); Glucose, Urine (Dipstick) Negative (Negative); Leukocyte Negative (Negative); Nitrite Negative (Negative); Protein, Urine (Dipstick) Negative (Neg-Trace); pH, Urine 6.5 (5.0-9.0)
[2017-02-11 11:29] LABS: Pregnancy Test - Urine (BHCG) Negative (NEGATIVE); Pregu Control Background? CLEAR/WHITE (CLR/WHITE); Pregu Control Bar Appear? YES (CONTROL BAR)
[2017-02-11] MEDS ORDERED: Promethazine HCl 25 MG/ML VIAL ONE (11:34)
[2017-02-11] MEDS ORDERED: Famotidine 20 MG TAB ONE (11:34)
[2017-02-11] MEDS ORDERED: Ondansetron ODT 4 MG TAB ONE (11:35)
== END 2017-02-11 11:47 | disposition home or self-care (01) ==
LOC: NAV ERS 10:42
DX: R11.2 Nausea with vomiting, unspecified (principal); D57.1 Sickle-cell disease without crisis
CPT/HCPCS: 81003; 81025; 96372; J2550; Q0162

== ENCOUNTER 2017-02-21 21:50 | Emergency (ER) | payer BC, SELFPAY ==
[2017-02-21] MEDS ORDERED: Ketorolac Tromethamine 30 MG/ML VIAL ONE (22:39)
[2017-02-21] MEDS ORDERED: Sodium Chloride 0.9% 1,000 ML ONE (22:39)
[2017-02-21] MEDS ORDERED: Ondansetron HCl/PF 4 MG/2 ML Vial ONE (22:41)
[2017-02-21 22:58] LABS: Reticulocyte Count 3.6 % (0.5-1.5)
[2017-02-21 23:05] LABS: Eosinophils 1 % (0-10); Hemoglobin 10.8 g/dL (12.0-16.0); Lymphocytes 53 % (21-51); MDiff Complete? YES; Mean Corpuscular HGB CONC 34.5 g/dL (32.0-36.0); Mean Corpuscular Hemoglobin 28.4 pg (27.0-31.0); Mean Corpuscular Volume 82.3 fl (81.0-99.0); Mean Platelet Volume 6.7 fL (7.4-10.4); Monocytes 5 % (0-10); Neutrophil 41 % (42-75); Nucleated RBC 1 % (0); PLT Morphology Comment Appears Adequate; Platelet Count 276 thou/uL (130-400); RBC Distribution Width 14.7 % (11.5-14.5); Red Blood Cell (RBC) Count 3.79 mill/uL (4.20-5.40); Sickle Cells MODERATE= 6-15 cells (100X) (None Seen)
[2017-02-21 23:09] LABS: White Blood Cell (WBC) Count 22.1 thou/uL (4.8-10.8)
[2017-02-21] MEDS ORDERED: Fentanyl 100 MCG/2 ML VIAL ONE (23:20)
[2017-02-22] MEDS ORDERED: diphenhydrAMINE HCl 50 MG/ML 1 ML VIAL ONE (00:16)
== END 2017-02-22 01:05 | disposition home or self-care (01) ==
LOC: NAV ERS 21:50
DX: D57.00 Hb-SS disease with crisis, unspecified (principal)
CPT/HCPCS: 36415; 85025; 85046; 94760; 96361; 96374; 96375; J1170; J1200; J1885; J2405; J3010; J7050

== ENCOUNTER 2017-02-22 21:37 | Emergency (ER) | payer BC ==
[2017-02-22] MEDS ORDERED: Sodium Chloride 0.9% 1,000 ML ONE (22:06)
[2017-02-22] MEDS ORDERED: Ondansetron HCl/PF 4 MG/2 ML Vial ONE (22:06)
[2017-02-22 22:38] LABS: ALT (SGPT) 58 U/L (8-55); AST (SGOT) 47 U/L (5-34); Albumin 3.9 g/dL (3.5-5.0); Alkaline Phosphatase 61 U/L (40-150); Anion Gap 13 mmol/L (10-20); BUN (Urea Nitrogen) 7 mg/dL (7.0-18.7); Calc. Creatinine Clearance 0 mL/min (70-130); Calcium 8.3 mg/dL (7.8-10.44); Carbon Dioxide 21 mmol/L (22-29); Chloride 108 mmol/L (98-107); Estimated GFR-MDRD Greater than 90; Globulin 2.7 g/dL (2.4-3.5); Glucose 98 mg/dL (70-105); Potassium 3.8 mmol/L (3.5-5.1); Protein, Total 6.6 g/dL (6.0-8.3); Sodium 138 mmol/L (136-145)
[2017-02-22 22:40] LABS: Reticulocyte Count 4.2 % (0.5-1.5)
[2017-02-22 22:46] LABS: Band 1 % (5-11); Eosinophils 3 % (0-10); Hemoglobin 9.3 g/dL (12.0-16.0); Lymphocytes 41 % (21-51); MDiff Complete? YES; Mean Corpuscular HGB CONC 36.3 g/dL (32.0-36.0); Mean Corpuscular Hemoglobin 29.1 pg (27.0-31.0); Mean Corpuscular Volume 80.2 fl (81.0-99.0); Mean Platelet Volume 6.6 fL (7.4-10.4); Monocytes 6 % (0-10); Neutrophil 47 % (42-75); Nucleated RBC 3 % (0); Platelet Count 254 thou/uL (130-400); RBC Distribution Width 15.1 % (11.5-14.5); Reactive Lymphocytes 2 % (0-10); Red Blood Cell (RBC) Count 3.21 mill/uL (4.20-5.40); Sickle Cells MODERATE= 6-15 cells (100X) (None Seen); Target Cells MODERATE= 6-15 cells (100X) (0-1/hpf)
--- NOTE | 2017-02-22 23:31 | RAD ---
ONE VIEW CHEST: Comparison: 08-25-16 History: Chest pain. FINDINGS: Portable upright chest. Normal cardiac silhouette. The pulmonary vessels and hilum are normal. No ma ss. No consolidation. No pneumothorax or osseous abnormality. IMPRESSION: No acute cardiopulmonary process. POS: [facility]
== END 2017-02-22 23:25 | disposition home or self-care (01) ==
LOC: NAV ERS 21:37
DX: D57.00 Hb-SS disease with crisis, unspecified (principal)
CPT/HCPCS: 71010; 80053; 85025; 85046; 94760; 96361; 96374; 96375; 96376; J2270; J2405; J7050

== ENCOUNTER 2017-03-29 01:51 | Emergency (ER) | payer BC | END 2017-03-29 02:35 | disposition home or self-care (01) | LOC: NAV ERS 01:51 | DX: R07.9 Chest pain, unspecified (principal) ==

== ENCOUNTER 2017-04-05 01:22 | Emergency (ER) | payer BC ==
[2017-04-05] MEDS ORDERED: Sodium Chloride 0.9% 1,000 ML ONE (01:42)
[2017-04-05] MEDS ORDERED: traMADol HCl 50 MG TAB ONE (01:54)
== END 2017-04-05 02:15 | disposition home or self-care (01) ==
LOC: NAV ERS 01:22
DX: D57.00 Hb-SS disease with crisis, unspecified (principal)
CPT/HCPCS: 99283; J7050

== ENCOUNTER 2018-06-13 23:32 | Emergency (ER) | payer BC ==
[2018-06-14] MEDS ORDERED: Acetaminophen/Codeine 30-300mg Tablet ONE (00:01)
== END 2018-06-14 00:05 | disposition home or self-care (01) ==
LOC: NAV ERS 23:32
DX: D57.00 Hb-SS disease with crisis, unspecified (principal); M79.661 Pain in right lower leg
CPT/HCPCS: 99283

== ENCOUNTER 2018-07-31 09:13 | Emergency (ER) | payer BC ==
[2018-07-31] MEDS ORDERED: Ibuprofen 800 MG TAB ONE (10:10)
== END 2018-07-31 10:13 | disposition home or self-care (01) ==
LOC: NAV ERS 09:13
DX: S76.911A Strain of unspecified muscles, fascia and tendons at thigh level, right thigh, initial encounter (principal); X50.1XXA Overexertion from prolonged static or awkward postures, initial encounter
CPT/HCPCS: 99283

== ENCOUNTER 2018-09-08 23:55 | Emergency (ER) | payer BC ==
[2018-09-09] MEDS ORDERED: Dextrose 5 %-0.45 % NaCl 1,000 ML ONE (00:44)
[2018-09-09] MEDS ORDERED: Acetaminophen 500 MG TAB ONE (00:44)
[2018-09-09] MEDS ORDERED: Morphine 4 MG/ML VIAL ONE ×2 (00:44→01:42)
[2018-09-09] MEDS ORDERED: diphenhydrAMINE 50 MG/ML VIAL ONE (00:44)
[2018-09-09 00:59] LABS: ALT (SGPT) 25 U/L (8-55); AST (SGOT) 26 U/L (5-34); Albumin 4.4 g/dL (3.5-5.0); Alkaline Phosphatase 62 U/L (40-150); Anion Gap 13 mmol/L (10-20); BUN (Urea Nitrogen) 6 mg/dL (7.0-18.7); Bilirubin, Total 1.9 mg/dL (0.2-1.2); Calc. Creatinine Clearance 0 mL/min (70-130); Calcium 9.3 mg/dL (7.8-10.44); Carbon Dioxide 22 mmol/L (22-29); Chloride 105 mmol/L (98-107); Estimated GFR-MDRD Greater than 90; Globulin 3.3 g/dL (2.4-3.5); Glucose 90 mg/dL (70-105); Potassium 3.7 mmol/L (3.5-5.1); Protein, Total 7.7 g/dL (6.0-8.3); Sodium 136 mmol/L (136-145)
[2018-09-09 01:01] LABS: Bilirubin Negative (Negative); Blood, Urine Trace (Negative); Clarity Clear (Clear); Glucose, Urine (Dipstick) Negative (Negative); Leukocyte Negative (Negative); Nitrite Negative (Negative); Protein, Urine (Dipstick) Negative (Neg-Trace)
[2018-09-09 01:02] LABS: Bacteria/HPF None Seen HPF (None Seen); RBC/HPF 0-3 HPF (0-3); Squamous Epithelial 0-3 HPF (0-3); WBC/HPF None Seen HPF (0-3)
[2018-09-09 01:09] LABS: Anisocytosis MODERATE=16-30 cells (100X) (0-5/hpf); Band 13 % (5-11); Eosinophils 2 % (0-10); Hemoglobin 10.7 g/dL (12.0-16.0); Hypochromia MARKED = >30 cells (100X) (0-5/hpf); Lymphocytes 36 % (21-51); MDiff Complete? YES; Mean Corpuscular Hemoglobin 28.4 pg (27.0-31.0); Mean Corpuscular Volume 80.9 fL (78.0-98.0); Mean Platelet Volume 6.8 fL (7.4-10.4); Monocytes 3 % (0-10); Neutrophil 46 % (42-75); Nucleated RBC 6 % (0); PLT Morphology Comment Appears Adequate; Platelet Count 288 thou/uL (130-400); Polychromasia SLIGHT = 2-3 cells (100X) (0-2/hpf); RBC Distribution Width 14.8 % (11.5-14.5); Red Blood Cell (RBC) Count 3.78 mill/uL (4.20-5.40); Target Cells SLIGHT = 2-5 cells (100X) (0-1/hpf)
[2018-09-09 01:10] LABS: White Blood Cell (WBC) Count 27.3 thou/uL (4.8-10.8)
[2018-09-09] MEDS ORDERED: Sodium Chloride 0.9% 0 ML ONE (01:37)
[2018-09-09] MEDS ORDERED: cefTRIAXone\\ROCEPHIN 2 GM VIAL ONE (01:37)
[2018-09-09] MEDS ORDERED: Sodium Chloride 0.9% 250 ML 250 ML ONE (01:39)
[2018-09-09] MEDS ORDERED: Azithromycin 500 MG VIAL ONE (01:39)
[2018-09-09] MEDS ORDERED: Sodium Chloride 0.9% 100 ML ONE (01:42)
[2018-09-09 02:03] LABS: Reticulocyte Count 4.7 % (0.5-1.5)
[2018-09-09 02:20] LABS: Pregnancy Test - Urine (BHCG) Negative (Negative); Pregu Control Background? CLEAR/WHITE (CLR/WHITE); Pregu Control Bar Appear? YES (CONTROL BAR)
--- NOTE | 2018-09-09 08:14 | RAD ---
CHEST ONE VIEW: COMPARISON: Radiograph from 07/21/2017. FINDINGS: The lungs are clear. No pneumothorax or effusion. The cardiac silhouette and mediastinal contour ar e within normal limits. IMPRESSION: No acute intrathoracic abnormality. POS: [facility]
== END 2018-09-09 03:53 | disposition left against medical advice (07) ==
LOC: NAV ERS 23:55
DX: D57.00 Hb-SS disease with crisis, unspecified (principal); D72.829 Elevated white blood cell count, unspecified; R05 Cough
CPT/HCPCS: 71045; 80053; 81003; 81015; 81025; 83605; 85025; 85046; 87040; 94760; 96361; 96365; 96367; 96375; 96376; J0456; J0696; J1200; J2270; J7042; J7050

== ENCOUNTER 2018-11-24 15:23 | Emergency (ER) | payer SELFPAY | END 2018-11-24 16:03 | disposition home or self-care (01) | LOC: NAV ERS 15:23 | DX: J20.9 Acute bronchitis, unspecified (principal) | CPT/HCPCS: 99281 ==

== ENCOUNTER 2018-12-02 12:54 | Emergency (ER) | payer SELFPAY ==
[2018-12-02] MEDS ORDERED: traMADol HCl 50 MG TAB ONE (13:16)
== END 2018-12-02 13:32 | disposition home or self-care (01) ==
LOC: NAV ERS 12:54
DX: D57.00 Hb-SS disease with crisis, unspecified (principal)
CPT/HCPCS: 99283

== ENCOUNTER 2019-01-06 09:23 | Emergency (ER) | payer SELFPAY ==
[2019-01-06] MEDS ORDERED: Ondansetron ODT 4 MG TAB ONE (09:42)
[2019-01-06 10:13] LABS: Bilirubin Negative (Negative); Blood, Urine Negative (Negative); Clarity Clear (Clear); Glucose, Urine (Dipstick) Negative (Negative); Leukocyte Negative (Negative); Nitrite Negative (Negative); Protein, Urine (Dipstick) Negative (Neg-Trace); Specific Gravity, Urine 1.015 (1.005-1.030)
== END 2019-01-06 10:58 | disposition home or self-care (01) ==
LOC: NAV ERS 09:23
DX: R11.2 Nausea with vomiting, unspecified (principal)
CPT/HCPCS: 81003; 99284; Q0162

== ENCOUNTER 2019-04-14 13:12 | Emergency (ER) | payer SELFPAY ==
[2019-04-14] MEDS ORDERED: diphenhydrAMINE 50 MG/ML VIAL ONE (13:37)
[2019-04-14] MEDS ORDERED: Morphine 4 MG/ML VIAL ONE ×2 (13:37→14:47)
[2019-04-14] MEDS ORDERED: Sodium Chloride 0.9% 1,000 ML ONE (13:37)
[2019-04-14] MEDS ORDERED: Acetaminophen 500 MG TAB ONE (13:37)
[2019-04-14 13:59] LABS: #Basophils 0.1 thou/uL (0.0-0.2); #Eosinphils 0.2 thou/uL (0.0-0.7); #Lymphocytes 2.5 thou/uL (1.20-3.40); #Monocytes 0.6 thou/uL (0.11-0.59); #Neutrophils 6.6 thou/uL (1.40-6.50); %Basophils 0.8 % (0.0-1.0); %Eosinophils 2.5 % (0.0-10.0); %Lymphocytes 24.8 % (21.0-51.0); %Monocytes 5.5 % (0.0-10.0); %Neutrophils 66.3 % (42.0-75.0); Hemoglobin 12.5 g/dL (12.0-16.0); Mean Corpuscular HGB CONC 33.2 g/dL (32.0-36.0); Mean Corpuscular Hemoglobin 27.6 pg (27.0-31.0); Mean Corpuscular Volume 83.2 fL (78.0-98.0); Mean Platelet Volume 6.6 fL (7.4-10.4); Platelet Count 293 thou/uL (130-400); RBC Distribution Width 14.5 % (11.5-14.5); Red Blood Cell (RBC) Count 4.53 mill/uL (4.20-5.40); White Blood Cell (WBC) Count 9.9 thou/uL (4.8-10.8)
[2019-04-14 14:15] LABS: Anion Gap 14 mmol/L (10-20); BUN (Urea Nitrogen) 9 mg/dL (7.0-18.7); Calc. Creatinine Clearance 0 mL/min (70-130); Calcium 9.9 mg/dL (7.8-10.44); Carbon Dioxide 21 mmol/L (22-29); Chloride 105 mmol/L (98-107); Estimated GFR-MDRD Greater than 90; Glucose 95 mg/dL (70-105); Potassium 4.1 mmol/L (3.5-5.1); Sodium 136 mmol/L (136-145)
[2019-04-14 14:34] LABS: Reticulocyte Count 2.7 % (0.5-1.5)
== END 2019-04-14 15:05 | disposition home or self-care (01) ==
LOC: NAV ERS 13:12
DX: D57.00 Hb-SS disease with crisis, unspecified (principal); M54.5 Low back pain
CPT/HCPCS: 36415; 80048; 85025; 85046; 96361; 96374; 96375; 96376; J1200; J2270; J7050

== ENCOUNTER 2019-05-22 21:30 | Emergency (ER) | payer BC, SELFPAY | END 2019-05-22 22:03 | disposition home or self-care (01) | LOC: NAV ERS 21:30 | DX: J06.9 Acute upper respiratory infection, unspecified (principal); J32.9 Chronic sinusitis, unspecified | CPT/HCPCS: 99283 ==

== ENCOUNTER 2019-07-24 09:08 | Emergency (ER) | payer BC ==
[2019-07-24 10:25] LABS: ALT (SGPT) 125 U/L (8-55); AST (SGOT) 149 U/L (5-34); Albumin 4.6 g/dL (3.5-5.0); Alkaline Phosphatase 64 U/L (40-110); Anion Gap 12 mmol/L (10-20); BUN (Urea Nitrogen) 10 mg/dL (7.0-18.7); Bilirubin, Total 2.2 mg/dL (0.2-1.2); Calc. Creatinine Clearance 0 mL/min (70-130); Calcium 9.3 mg/dL (7.8-10.44); Carbon Dioxide 21 mmol/L (22-29); Chloride 106 mmol/L (98-107); Estimated GFR-MDRD Greater than 90; Globulin 3.4 g/dL (2.4-3.5); Glucose 85 mg/dL (70-105); Potassium 4.2 mmol/L (3.5-5.1); Sodium 135 mmol/L (136-145)
[2019-07-24 10:35] LABS: #Basophils 0.1 thou/uL (0.0-0.2); #Eosinphils 0.3 thou/uL (0.0-0.7); #Monocytes 0.7 thou/uL (0.11-0.59); #Neutrophils 5.6 thou/uL (1.40-6.50); %Basophils 1.3 % (0.0-1.0); %Eosinophils 3.2 % (0.0-10.0); %Monocytes 8.1 % (0.0-10.0); %Neutrophils 64.3 % (42.0-75.0)
[2019-07-24 10:39] LABS: Hemoglobin 11.2 g/dL (12.0-16.0); Mean Corpuscular HGB CONC 34.9 g/dL (32.0-36.0); Mean Corpuscular Hemoglobin 28.2 pg (27.0-31.0); Mean Corpuscular Volume 80.7 fL (78.0-98.0); RBC Distribution Width 14.2 % (11.5-14.5); Red Blood Cell (RBC) Count 3.96 mill/uL (4.20-5.40); White Blood Cell (WBC) Count 8.7 thou/uL (4.8-10.8)
[2019-07-24 10:40] LABS: Mean Platelet Volume 6.9 fL (7.4-10.4); Platelet Count 287 thou/uL (130-400)
[2019-07-24] MEDS ORDERED: Lactated Ringer's 1,000 ML ONE (10:48)
[2019-07-24] MEDS ORDERED: diphenhydrAMINE 50 MG/ML VIAL ONE (10:48)
[2019-07-24] MEDS ORDERED: Morphine 2 MG/ML SYRINGE ONE ×2 (11:12→11:32)
--- NOTE | 2019-07-24 11:12 | ULT ---
ULTRASOUND ABDOMEN LIMITED: (RIGHT UPPER QUADRANT) DATE: 07/24/2019 HISTORY: 28-year-old female with elevated liver enzymes and elevated serum bilirubin levels. FINDINGS: Gallbladder: Normal wall thickness. A few small particles of mixed intermediate and hyperechoic echog enicity in the dependent portion of the lumen without definite shadowing. The hyperechoic tiny components are on the order of 2 mm in size each. No pericholecystic fluid. Liver: Normal parenchymal echogenicity. Normal size. Right kidney: No hydronephrosis. Pancreas: Visualized, with no gross sonographic abnormality identified (although ultrasound is relati vely insensitive for the detection of pancreatic pathology compared to CT and MRI.). Common duct caliber: 2 mm. IMPRESSION: 1. No sonographic abnormality of the liver identified. 2. No evidence of biliary obstruction or acute cholecystitis. 3. Tiny amounts of gallbladder sludge. 4. Tiny focal particles in the gallbladder lumen: Uncertain whether these are Polyps versus a few tin y gallstones.
[2019-07-24 12:12] LABS: Reticulocyte Count 3.2 % (0.5-1.5)
== END 2019-07-24 14:05 | disposition home or self-care (01) ==
LOC: NAV ERS 09:08
DX: D57.00 Hb-SS disease with crisis, unspecified (principal)
CPT/HCPCS: 76705; 80053; 85025; 85046; 96361; 96374; 96375; J1200; J2270; J7120

== ENCOUNTER 2019-08-02 14:24 | Emergency (ER) | payer BC ==
[2019-08-02] MEDS ORDERED: Ibuprofen 200 MG TAB ONE (14:42)
[2019-08-02] MEDS ORDERED: Acetaminophen 325 MG TAB ONE (14:42)
--- NOTE | 2019-08-02 16:33 | RAD ---
PORTABLE CHEST ONE VIEW: 08/02/19 at 3:12 p.m. HISTORY: Cough. FINDINGS: Comparison made with exam of 08/25/18. The heart size is normal. The lungs are expanded without focal areas of consolidation, pneumothoraces , or pleural effusions. IMPRESSION: No acute process. POS: [facility]
== END 2019-08-02 16:10 | disposition home or self-care (01) ==
LOC: NAV ERS 14:24
DX: B34.9 Viral infection, unspecified (principal); D57.1 Sickle-cell disease without crisis; D64.9 Anemia, unspecified
CPT/HCPCS: 71045; 87804

== ENCOUNTER 2019-12-29 10:54 | Emergency (ER) | payer BC ==
[2019-12-29] MEDS ORDERED: Ondansetron ODT 4 MG TAB ONE (11:06)
[2019-12-29 11:57] LABS: Bilirubin Negative (Negative); Blood, Urine Trace (Negative); Clarity Clear (Clear); Glucose, Urine (Dipstick) Negative (Negative); Leukocyte Negative (Negative); Nitrite Negative (Negative); Protein, Urine (Dipstick) Negative (Neg-Trace)
[2019-12-29 12:00] LABS: Pregnancy Test - Urine (BHCG) Negative (Negative); Pregu Control Background? CLEAR/WHITE (CLR/WHITE); Pregu Control Bar Appear? YES (CONTROL BAR)
[2019-12-29 12:01] LABS: Bacteria/HPF None Seen HPF (None Seen); RBC/HPF 0-3 HPF (0-3); WBC/HPF 0-3 HPF (0-3)
== END 2019-12-29 12:40 | disposition home or self-care (01) ==
LOC: NAV ERS 10:54
DX: R11.2 Nausea with vomiting, unspecified (principal); Z79.899 Other long term (current) drug therapy
CPT/HCPCS: 81003; 81015; 81025; 99284; Q0162

== ENCOUNTER 2020-03-06 22:33 | Emergency (ER) | payer BC ==
--- NOTE | 2020-03-07 09:47 | RAD ---
RIGHT ANKLE 3 VIEWS: HISTORY: Ankle pain status post fall. FINDINGS: Soft tissue swelling is seen adjacent to the lateral malleolus. There are no signs of fracture or di slocation. IMPRESSION: No evidence of fracture. POS: [facility]
== END 2020-03-06 23:33 | disposition home or self-care (01) ==
LOC: NAV ERS 22:33
DX: S93.401A Sprain of unspecified ligament of right ankle, initial encounter (principal); D57.1 Sickle-cell disease without crisis; X50.1XXA Overexertion from prolonged static or awkward postures, initial encounter

== ENCOUNTER 2020-04-30 19:41 | Emergency (ER) | payer BC ==
[2020-04-30] MEDS ORDERED: Sodium Chloride 0.9% 1,000 ML ONE (20:36)
[2020-04-30] MEDS ORDERED: Morphine 4 MG/ML VIAL ONE (20:36)
[2020-04-30] MEDS ORDERED: Ondansetron PF 4 MG/2 ML Vial ONE (20:36)
[2020-04-30 20:45] LABS: ALT (SGPT) 21 U/L (8-55); AST (SGOT) 21 U/L (5-34); Albumin 4.6 g/dL (3.5-5.0); Alkaline Phosphatase 58 U/L (40-110); Anion Gap 13 mmol/L (10-20); BUN (Urea Nitrogen) 10 mg/dL (7.0-18.7); Bilirubin, Total 1.1 mg/dL (0.2-1.2); Calc. Creatinine Clearance 0 mL/min (70-130); Calcium 9.3 mg/dL (7.8-10.44); Carbon Dioxide 25 mmol/L (22-29); Chloride 103 mmol/L (98-107); Estimated GFR-MDRD Greater than 90; Globulin 3.3 g/dL (2.4-3.5); Glucose 94 mg/dL (70-105); Potassium 3.8 mmol/L (3.5-5.1); Protein, Total 7.9 g/dL (6.0-8.3); Sodium 137 mmol/L (136-145)
[2020-04-30 20:48] LABS: Anisocytosis SLIGHT = 6-15 cells (100X) (0-5/hpf); Band 1 % (5-11); Eosinophils 8 % (0-10); Lymphocytes 35 % (21-51); MDiff Complete? YES; Mean Corpuscular HGB CONC 33.7 g/dL (32.0-36.0); Mean Corpuscular Hemoglobin 28.6 pg (27.0-31.0); Mean Corpuscular Volume 84.7 fL (78.0-98.0); Mean Platelet Volume 7.3 fL (7.4-10.4); Monocytes 4 % (0-10); Neutrophil 52 % (42-75); Nucleated RBC 4 % (0); Platelet Count 305 thou/uL (130-400); Platelet Morphology Comment Appears Adequate; RBC Distribution Width 14.6 % (11.5-14.5); Red Blood Cell (RBC) Count 3.84 mill/uL (4.20-5.40); Sickle Cells SLIGHT = 1-5 cells (100X) (None Seen); Spherocytes SLIGHT = 1-5 cells (100X) (None Seen); Target Cells MARKED = >16 cells (100X) (0-1/hpf); Tear Drops SLIGHT = 2-5 cells (100X) (0-1/hpf); White Blood Cell (WBC) Count 11.3 thou/uL (4.8-10.8)
[2020-04-30 20:58] LABS: Bilirubin Negative (Negative); Blood, Urine Negative (Negative); Clarity Clear (Clear); Glucose, Urine (Dipstick) Negative (Negative); Ketone, Urine Negative (Negative); Leukocyte Negative (Negative); Nitrite Negative (Negative); Protein, Urine (Dipstick) Negative (Neg-Trace); Specific Gravity, Urine 1.015 (1.005-1.030); Urobilinogen 0.2 mg/dL (Less than 2)
[2020-04-30] MEDS ORDERED: Morphine 2 MG/ML SYRINGE ONE (21:40)
[2020-04-30 22:14] LABS: Reticulocyte Count 4.3 % (0.5-1.5)
== END 2020-04-30 23:03 | disposition home or self-care (01) ==
LOC: NAV ERS 19:41
DX: D57.00 Hb-SS disease with crisis, unspecified (principal)
CPT/HCPCS: 80053; 81003; 85025; 85046; 96361; 96374; 96375; 96376; J2270; J2405; J7050

== ENCOUNTER 2020-06-09 10:04 | Emergency (ER) | payer BC ==
[2020-06-09] MEDS ORDERED: diphenhydrAMINE 25 MG CAP ONE (10:25)
[2020-06-09] MEDS ORDERED: predniSONE 20 MG TAB ONE ×2 (10:49→10:53)
== END 2020-06-09 10:55 | disposition home or self-care (01) ==
LOC: NAV ERS 10:04
DX: L50.9 Urticaria, unspecified (principal)
CPT/HCPCS: 99282; J7512; Q0163

== ENCOUNTER 2020-06-21 09:06 | Emergency (ER) | payer SELFPAY | END 2020-06-21 09:42 | disposition home or self-care (01) | LOC: NAV ERS 09:06 | DX: L50.0 Allergic urticaria (principal) | CPT/HCPCS: 99283 ==

== ENCOUNTER 2020-07-01 10:51 | Emergency (ER) | payer SELFPAY ==
[2020-07-01] MEDS ORDERED: diphenhydrAMINE 50 MG/ML VIAL ONE (11:14)
[2020-07-01] MEDS ORDERED: methylPREDNISolone Sod Succ/PF 125 MG/2 ML VIAL ONE (11:14)
== END 2020-07-01 13:00 | disposition home or self-care (01) ==
LOC: NAV ERS 10:51
DX: L50.9 Urticaria, unspecified (principal)
CPT/HCPCS: 96372; 99282; J1200; J2930

== ENCOUNTER 2020-07-05 10:24 | Emergency (ER) | payer SELFPAY ==
[2020-07-05] MEDS ORDERED: Morphine 4 MG/ML VIAL ONE ×2 (10:44→11:28)
[2020-07-05] MEDS ORDERED: Ondansetron PF 4 MG/2 ML Vial ONE (10:44)
[2020-07-05] MEDS ORDERED: Sodium Chloride 0.9% 1,000 ML ONE (10:44)
[2020-07-05 11:26] LABS: ALT (SGPT) 78 U/L (8-55); AST (SGOT) 22 U/L (5-34); Alkaline Phosphatase 79 U/L (40-110); Anion Gap 13 mmol/L (10-20); BUN (Urea Nitrogen) 9 mg/dL (7.0-18.7); Bilirubin, Total 0.8 mg/dL (0.2-1.2); Calc. Creatinine Clearance 0 mL/min (70-130); Carbon Dioxide 21 mmol/L (22-29); Chloride 107 mmol/L (98-107); Estimated GFR-MDRD Greater than 90; Globulin 3.4 g/dL (2.4-3.5); Glucose 105 mg/dL (70-105); Potassium 3.8 mmol/L (3.5-5.1); Protein, Total 7.4 g/dL (6.0-8.3); Sodium 137 mmol/L (136-145)
[2020-07-05 11:28] LABS: Mean Corpuscular HGB CONC 34.5 g/dL (32.0-36.0); Mean Corpuscular Hemoglobin 28.9 pg (27.0-31.0); Mean Platelet Volume 6.7 fL (7.4-10.4); Platelet Count 353 thou/uL (130-400); RBC Distribution Width 14.7 % (11.5-14.5)
[2020-07-05 11:29] LABS: Anisocytosis SLIGHT = 6-15 cells (100X) (0-5/hpf); Eosinophils 1 % (0-10); Lymphocytes 3 % (21-51); MDiff Complete? YES; Monocytes 3 % (0-10); Neutrophil 93 % (42-75); Nucleated RBC 2 % (0); Platelet Morphology Comment Appears Adequate; Reactive Lymphocytes 0 % (0-10); Target Cells SLIGHT = 2-5 cells (100X) (0-1/hpf); Vacuoles SLIGHT
[2020-07-05 11:33] LABS: Red Blood Cell (RBC) Count 3.89 mill/uL (4.20-5.40); White Blood Cell (WBC) Count 34.1 thou/uL (4.8-10.8)
[2020-07-05 11:34] LABS: Hemoglobin 11.3 g/dL (12.0-16.0)
[2020-07-05] MEDS ORDERED: Morphine 2 MG/ML SYRINGE ONE (11:59)
== END 2020-07-05 12:10 | disposition home or self-care (01) ==
LOC: NAV ERS 10:24
DX: D57.00 Hb-SS disease with crisis, unspecified (principal); Z79.52 Long term (current) use of systemic steroids
CPT/HCPCS: 80053; 85025; 93005; 96374; 96375; 96376; J2270; J2405; J7050

== ENCOUNTER 2020-07-08 21:00 | Emergency (ER) | payer SELFPAY ==
[2020-07-08] MEDS ORDERED: Ondansetron PF 4 MG/2 ML Vial ONE (21:59)
[2020-07-08] MEDS ORDERED: Morphine 4 MG/ML VIAL ONE (21:59)
[2020-07-08] MEDS ORDERED: Sodium Chloride 0.9% 1,000 ML ONE (21:59)
[2020-07-08 22:19] LABS: ALT (SGPT) 114 U/L (8-55); AST (SGOT) 99 U/L (5-34); Albumin 3.6 g/dL (3.5-5.0); Alkaline Phosphatase 80 U/L (40-110); Anion Gap 12 mmol/L (10-20); BUN (Urea Nitrogen) 12 mg/dL (7.0-18.7); Bilirubin, Total 1.6 mg/dL (0.2-1.2); Calc. Creatinine Clearance 0 mL/min (70-130); Calcium 8.5 mg/dL (7.8-10.44); Carbon Dioxide 23 mmol/L (22-29); Chloride 103 mmol/L (98-107); Estimated GFR-MDRD Greater than 90; Globulin 2.9 g/dL (2.4-3.5); Glucose 99 mg/dL (70-105); Potassium 3.5 mmol/L (3.5-5.1); Protein, Total 6.5 g/dL (6.0-8.3); Sodium 134 mmol/L (136-145)
[2020-07-08 22:29] LABS: Anisocytosis MODERATE=16-30 cells (100X) (0-5/hpf); Band 2 % (5-11); Eosinophils 4 % (0-10); Hypochromia SLIGHT = 6-15 cells (100X) (0-5/hpf); Lymphocytes 29 % (21-51); MDiff Complete? YES; Mean Corpuscular HGB CONC 34.9 g/dL (32.0-36.0); Mean Corpuscular Hemoglobin 29.3 pg (27.0-31.0); Mean Corpuscular Volume 83.9 fL (78.0-98.0); Mean Platelet Volume 6.8 fL (7.4-10.4); Monocytes 6 % (0-10); Myelocyte 1 % (0-0); Neutrophil 57 % (42-75); Nucleated RBC 5 % (0); Platelet Count 313 thou/uL (130-400); Platelet Morphology Comment Appears Adequate; Polychromasia MODERATE = 3-4 cells (100X) (0-2/hpf); Reactive Lymphocytes 1 % (0-10); Red Blood Cell (RBC) Count 3.77 mill/uL (4.20-5.40); Spherocytes SLIGHT = 1-5 cells (100X) (None Seen); Target Cells MARKED = >16 cells (100X) (0-1/hpf)
[2020-07-08 22:32] LABS: White Blood Cell (WBC) Count 16.3 thou/uL (4.8-10.8)
[2020-07-08] MEDS ORDERED: diphenhydrAMINE 25 MG CAP ONE (23:07)
[2020-07-08 23:48] LABS: Reticulocyte Count 4.8 % (0.5-1.5)
== END 2020-07-08 23:13 | disposition home or self-care (01) ==
LOC: NAV ERS 21:00
DX: D57.00 Hb-SS disease with crisis, unspecified (principal)
CPT/HCPCS: 80053; 85025; 85046; 96374; 96375; J2270; J2405; J7050; Q0163

== ENCOUNTER 2020-07-26 14:12 | Emergency (ER) | payer SELFPAY ==
[2020-07-26] MEDS ORDERED: methylPREDNISolone Acetate 40 mg/ml Vial ONE (14:36)
== END 2020-07-26 14:50 | disposition home or self-care (01) ==
LOC: NAV ERS 14:12
DX: T78.40XA Allergy, unspecified, initial encounter (principal)
CPT/HCPCS: 96372; 99283; J2920

== ENCOUNTER 2020-10-15 07:28 | Emergency (ER) | payer SELFPAY ==
[2020-10-15] MEDS ORDERED: predniSONE 20 MG TAB ONE (07:58)
[2020-10-15] MEDS ORDERED: Famotidine 20 MG TAB ONE (07:58)
== END 2020-10-15 08:05 | disposition home or self-care (01) ==
LOC: NAV ERS 07:28
DX: L50.9 Urticaria, unspecified (principal); D57.1 Sickle-cell disease without crisis
CPT/HCPCS: 99282; J7512

== ENCOUNTER 2020-10-19 20:19 | Emergency (ER) | payer SELFPAY ==
[2020-10-19] MEDS ORDERED: Sodium Chloride 0.9% 1,000 ML ONE (20:35)
[2020-10-19] MEDS ORDERED: Ketorolac Tromethamine 30 MG/ML VIAL ONE (21:03)
[2020-10-19] MEDS ORDERED: Morphine 4 MG/ML VIAL ONE ×2 (21:03→21:36)
[2020-10-19 21:07] LABS: Anion Gap 15 mmol/L (10-20); BUN (Urea Nitrogen) 10 mg/dL (7.0-18.7); Calc. Creatinine Clearance 0 mL/min (70-130); Calcium 8.7 mg/dL (7.8-10.44); Carbon Dioxide 21 mmol/L (22-29); Chloride 106 mmol/L (98-107); Glucose 94 mg/dL (70-105); Potassium 3.8 mmol/L (3.5-5.1); Sodium 138 mmol/L (136-145)
[2020-10-19 21:12] LABS: Band 4 % (5-11); Eosinophils 2 % (0-10); Hemoglobin 11.1 g/dL (12.0-16.0); Hypochromia SLIGHT = 6-15 cells (100X) (0-5/hpf); Lymphocytes 37 % (21-51); MDiff Complete? YES; Mean Corpuscular HGB CONC 35.8 g/dL (32.0-36.0); Mean Corpuscular Volume 80.9 fL (78.0-98.0); Mean Platelet Volume 6.8 fL (7.4-10.4); Monocytes 2 % (0-10); Neutrophil 54 % (42-75); Platelet Count 370 thou/uL (130-400); Platelet Morphology Comment Appears Adequate; RBC Distribution Width 14.7 % (11.5-14.5); Red Blood Cell (RBC) Count 3.83 mill/uL (4.20-5.40); Target Cells MARKED = >16 cells (100X) (0-1/hpf)
[2020-10-19 21:13] LABS: White Blood Cell (WBC) Count 22.1 thou/uL (4.8-10.8)
[2020-10-19 21:40] LABS: Reticulocyte Count 5.39 % (0.45-2.28)
== END 2020-10-19 22:38 | disposition home or self-care (01) ==
LOC: NAV ERS 20:19
DX: D57.00 Hb-SS disease with crisis, unspecified (principal)
CPT/HCPCS: 80048; 85025; 85046; 96374; 96375; 96376; J1885; J2270; J7050

== ENCOUNTER 2020-10-20 17:07 | Emergency (ER) | payer SELFPAY ==
[2020-10-20] MEDS ORDERED: traMADol HCl 50 MG TAB ONE (17:39)
== END 2020-10-20 17:45 | disposition home or self-care (01) ==
LOC: NAV ERS 17:07
DX: D57.00 Hb-SS disease with crisis, unspecified (principal); Z79.899 Other long term (current) drug therapy
CPT/HCPCS: 99283

== ENCOUNTER 2020-10-24 07:38 | Emergency (ER) | payer SELFPAY ==
[2020-10-24] MEDS ORDERED: Dexamethasone 20 MG/5 ML VIAL ONE (08:17)
== END 2020-10-24 08:45 | disposition home or self-care (01) ==
LOC: NAV ERS 07:38
DX: L50.9 Urticaria, unspecified (principal)
CPT/HCPCS: 99283; J1100

== ENCOUNTER 2020-11-02 19:00 | Emergency (ER) | payer SELFPAY | END 2020-11-02 19:32 | disposition home or self-care (01) | LOC: NAV ERS 19:00 | DX: L50.0 Allergic urticaria (principal); D57.1 Sickle-cell disease without crisis | CPT/HCPCS: 99283 ==

== ENCOUNTER 2020-11-11 19:24 | Emergency (ER) | payer SELFPAY ==
[2020-11-11] MEDS ORDERED: Sodium Chloride 0.9% 1,000 ML ONE (19:48)
[2020-11-11] MEDS ORDERED: Morphine 4 MG/ML VIAL ONE ×2 (20:09→21:01)
[2020-11-11] MEDS ORDERED: Ondansetron PF 4 MG/2 ML Vial ONE (20:09)
[2020-11-11 20:28] LABS: ALT (SGPT) 38 U/L (8-55); AST (SGOT) 30 U/L (5-34); Albumin 4.4 g/dL (3.5-5.0); Alkaline Phosphatase 80 U/L (40-110); Anion Gap 15 mmol/L (10-20); BUN (Urea Nitrogen) 10 mg/dL (7.0-18.7); Bilirubin, Total 1.1 mg/dL (0.2-1.2); Calc. Creatinine Clearance 0 mL/min (70-130); Calcium 9.1 mg/dL (7.8-10.44); Carbon Dioxide 23 mmol/L (22-29); Chloride 105 mmol/L (98-107); Globulin 3.3 g/dL (2.4-3.5); Glucose 94 mg/dL (70-105); Potassium 4.2 mmol/L (3.5-5.1); Protein, Total 7.7 g/dL (6.0-8.3); Sodium 139 mmol/L (136-145)
[2020-11-11 20:32] LABS: Anisocytosis SLIGHT = 6-15 cells (100X) (0-5/hpf); Band 1 % (5-11); Hemoglobin 11.1 g/dL (12.0-16.0); Lymphocytes 38 % (21-51); MDiff Complete? YES; Mean Corpuscular HGB CONC 34.7 g/dL (32.0-36.0); Mean Corpuscular Hemoglobin 28.4 pg (27.0-31.0); Mean Corpuscular Volume 81.9 fL (78.0-98.0); Mean Platelet Volume 6.3 fL (7.4-10.4); Monocytes 1 % (0-10); Neutrophil 60 % (42-75); Nucleated RBC 1 % (0); Platelet Count 302 thou/uL (130-400); Platelet Morphology Comment Appears Adequate; RBC Distribution Width 15.5 % (11.5-14.5); Red Blood Cell (RBC) Count 3.92 mill/uL (4.20-5.40); Sickle Cells SLIGHT = 1-5 cells (100X) (None Seen); Stomatocytes SLIGHT = 2-5 cells (100X) (0-1/hpf); Target Cells MARKED = >16 cells (100X) (0-1/hpf); White Blood Cell (WBC) Count 17.5 thou/uL (4.8-10.8)
[2020-11-11 20:45] LABS: Bilirubin Negative (Negative); Blood, Urine Trace (Negative); Clarity Clear (Clear); Glucose, Urine (Dipstick) Negative (Negative); Ketone, Urine Negative (Negative); Leukocyte Negative (Negative); Nitrite Negative (Negative); Protein, Urine (Dipstick) Negative (Neg-Trace); Specific Gravity, Urine 1.025 (1.005-1.030)
[2020-11-11 20:48] LABS: Pregnancy Test - Urine (BHCG) Negative (Negative); Pregu Control Background? CLEAR/WHITE (CLR/WHITE); Pregu Control Bar Appear? YES (CONTROL BAR); Specific Gravity 1.025 (1.002-1.036)
[2020-11-11 20:54] LABS: RBC/HPF 0-3 HPF (0-3); WBC/HPF 0-3 HPF (0-3)
== END 2020-11-11 22:12 | disposition home or self-care (01) ==
LOC: NAV ERS 19:24
DX: D57.00 Hb-SS disease with crisis, unspecified (principal)
CPT/HCPCS: 80053; 81003; 81015; 81025; 85025; 96374; 96375; 96376; J2270; J2405; J7050

== ENCOUNTER 2020-11-12 18:40 | Emergency (ER) | payer SELFPAY ==
[2020-11-12] MEDS ORDERED: Morphine 4 MG/ML VIAL ONE ×2 (19:44→20:30)
[2020-11-12] MEDS ORDERED: diphenhydrAMINE 50 MG/ML VIAL ONE (19:45)
[2020-11-12] MEDS ORDERED: Ondansetron PF 4 MG/2 ML Vial ONE (19:45)
[2020-11-12 20:06] LABS: ALT (SGPT) 32 U/L (8-55); AST (SGOT) 34 U/L (5-34); Albumin 3.9 g/dL (3.5-5.0); Alkaline Phosphatase 77 U/L (40-110); Anion Gap 16 mmol/L (10-20); BUN (Urea Nitrogen) 10 mg/dL (7.0-18.7); Bilirubin, Total 1.4 mg/dL (0.2-1.2); Calc. Creatinine Clearance 0 mL/min (70-130); Calcium 8.4 mg/dL (7.8-10.44); Carbon Dioxide 18 mmol/L (22-29); Chloride 105 mmol/L (98-107); Globulin 3.4 g/dL (2.4-3.5); Glucose 87 mg/dL (70-105); Potassium 4.7 mmol/L (3.5-5.1); Protein, Total 7.3 g/dL (6.0-8.3); Sodium 134 mmol/L (136-145)
[2020-11-12 20:09] LABS: Differential Comment NO HEMATOLOGIC CHANG; Hemoglobin 11.6 g/dL (12.0-16.0); Lymphocytes 29 % (21-51); MDiff Complete? YES; Mean Corpuscular HGB CONC 35.1 g/dL (32.0-36.0); Mean Corpuscular Hemoglobin 28.9 pg (27.0-31.0); Mean Corpuscular Volume 82.2 fL (78.0-98.0); Mean Platelet Volume 6.3 fL (7.4-10.4); Monocytes 7 % (0-10); Neutrophil 61 % (42-75); Platelet Count 414 thou/uL (130-400); RBC Distribution Width 15.8 % (11.5-14.5); Reactive Lymphocytes 3 % (0-10); White Blood Cell (WBC) Count 17.3 thou/uL (4.8-10.8)
[2020-11-12 20:10] LABS: Sickle Cells MODERATE= 6-15 cells (100X) (None Seen); Target Cells MARKED = >16 cells (100X) (0-1/hpf)
[2020-11-12] MEDS ORDERED: Sodium Chloride 0.9% 500 ML ONE (20:23)
[2020-11-12] MEDS ORDERED: Dextrose 5 %-0.45 % NaCl 1,000 ML ONE (20:26)
[2020-11-12 22:03] LABS: Reticulocyte Count 3.7 % (0.5-1.5)
== END 2020-11-12 21:43 | disposition home or self-care (01) ==
LOC: NAV ERS 18:40
DX: D57.00 Hb-SS disease with crisis, unspecified (principal)
CPT/HCPCS: 80053; 85025; 85046; 96374; 96375; 96376; J1200; J2270; J2405; J7030; J7042

== ENCOUNTER 2020-11-19 07:21 | Emergency (ER) | payer SELFPAY ==
[2020-11-19] MEDS ORDERED: methylPREDNISolone Acetate 40 mg/ml Vial ONE (07:58)
== END 2020-11-19 08:12 | disposition home or self-care (01) ==
LOC: NAV ERS 07:21
DX: L50.9 Urticaria, unspecified (principal); D57.1 Sickle-cell disease without crisis
CPT/HCPCS: 96372; 99282; J2920

== ENCOUNTER 2021-03-25 21:02 | Emergency (ER) | payer BC, SELFPAY ==
[2021-03-25] MEDS ORDERED: Sodium Chloride 0.9% 1,000 ML ONE (22:13)
[2021-03-25] MEDS ORDERED: Morphine 4 MG/ML VIAL ONE ×2 (22:13→23:12)
[2021-03-25] MEDS ORDERED: Ondansetron PF 4 MG/2 ML Vial ONE (22:13)
[2021-03-25 22:14] LABS: Hemoglobin 11.4 g/dL (12.0-16.0); Mean Corpuscular HGB CONC 33.4 g/dL (32.0-36.0); Mean Corpuscular Hemoglobin 28.1 pg (27.0-31.0); Mean Platelet Volume 6.9 fL (7.4-10.4); Platelet Count 345 thou/uL (130-400); RBC Distribution Width 15.4 % (11.5-14.5); Red Blood Cell (RBC) Count 4.07 mill/uL (4.20-5.40); White Blood Cell (WBC) Count 13.7 thou/uL (4.8-10.8)
[2021-03-25 22:20] LABS: Band 4 % (5-11); Eosinophils 1 % (0-10); Hypochromia SLIGHT = 6-15 cells (100X) (0-5/hpf); Lymphocytes 44 % (21-51); MDiff Complete? YES; Metamyelocyte 1 % (0-0); Monocytes 4 % (0-10); Neutrophil 46 % (42-75); Platelet Morphology Comment Appears Adequate; Polychromasia SLIGHT = 2-3 cells (100X) (0-2/hpf); Target Cells MODERATE= 6-15 cells (100X) (0-1/hpf)
[2021-03-25 22:21] LABS: ALT (SGPT) 31 U/L (8-55); AST (SGOT) 28 U/L (5-34); Albumin 4.1 g/dL (3.5-5.0); Alkaline Phosphatase 64 U/L (40-110); Anion Gap 13 mmol/L (10-20); BUN (Urea Nitrogen) 4 mg/dL (7.0-18.7); Bilirubin, Total 1.2 mg/dL (0.2-1.2); Calc. Creatinine Clearance 0 mL/min (70-130); Calcium 9.1 mg/dL (7.8-10.44); Carbon Dioxide 22 mmol/L (22-29); Chloride 106 mmol/L (98-107); Globulin 3.2 g/dL (2.4-3.5); Glucose 96 mg/dL (70-105); Potassium 3.6 mmol/L (3.5-5.1); Protein, Total 7.3 g/dL (6.0-8.3); Sodium 137 mmol/L (136-145)
== END 2021-03-25 23:55 | disposition home or self-care (01) ==
LOC: NAV ERS 21:02
DX: D57.00 Hb-SS disease with crisis, unspecified (principal)
CPT/HCPCS: 36415; 80053; 85025; 85046; 96374; 96375; 96376; J2270; J2405; J7050

== ENCOUNTER 2021-04-17 21:31 | Emergency (ER) | payer BC ==
[2021-04-17] MEDS ORDERED: predniSONE 20 MG TAB ONE (22:32)
[2021-04-18 18:29] LABS: SARS-CoV-2 PCR by NAA Not Detected (NotDetected)
== END 2021-04-17 22:38 | disposition home or self-care (01) ==
LOC: NAV ERS 21:31
DX: J02.9 Acute pharyngitis, unspecified (principal); D57.1 Sickle-cell disease without crisis; Z20.822 Contact with and (suspected) exposure to COVID-19
CPT/HCPCS: 87081; 87430; 99283; J7512; U0003; U0005

== ENCOUNTER 2021-05-07 21:03 | Emergency (ER) | payer BC ==
[2021-05-07] MEDS ORDERED: Sodium Chloride 0.9% 1,000 ML ONE (21:46)
[2021-05-07] MEDS ORDERED: Morphine 4 MG/ML VIAL ONE ×2 (21:46→22:35)
[2021-05-07 22:14] LABS: ALT (SGPT) 21 U/L (8-55); AST (SGOT) 15 U/L (5-34); Albumin 3.6 g/dL (3.5-5.0); Alkaline Phosphatase 61 U/L (40-110); Anion Gap 12 mmol/L (10-20); BUN (Urea Nitrogen) 7 mg/dL (7.0-18.7); Bilirubin, Total 0.9 mg/dL (0.2-1.2); Calc. Creatinine Clearance 0 mL/min (70-130); Calcium 8.6 mg/dL (7.8-10.44); Carbon Dioxide 23 mmol/L (22-29); Chloride 107 mmol/L (98-107); Globulin 2.9 g/dL (2.4-3.5); Glucose 97 mg/dL (70-105); Potassium 3.5 mmol/L (3.5-5.1); Protein, Total 6.5 g/dL (6.0-8.3); Sodium 138 mmol/L (136-145)
[2021-05-07 22:21] LABS: Anisocytosis SLIGHT = 6-15 cells (100X) (0-5/hpf); Band 3 % (5-11); Hemoglobin 9.3 g/dL (12.0-16.0); Hypochromia MODERATE=16-30 cells (100X) (0-5/hpf); Lymphocytes 54 % (21-51); MDiff Complete? YES; Mean Corpuscular HGB CONC 33.6 g/dL (32.0-36.0); Mean Corpuscular Hemoglobin 27.9 pg (27.0-31.0); Mean Corpuscular Volume 82.9 fL (78.0-98.0); Mean Platelet Volume 6.8 fL (7.4-10.4); Monocytes 3 % (0-10); Neutrophil 40 % (42-75); Platelet Count 360 thou/uL (130-400); Platelet Morphology Comment Appears Adequate; Poikilocytosis MODERATE=16-30 cells (100X) (0-5/hpf); Red Blood Cell (RBC) Count 3.32 mill/uL (4.20-5.40); Sickle Cells SLIGHT = 1-5 cells (100X) (None Seen); Target Cells MODERATE= 6-15 cells (100X) (0-1/hpf); White Blood Cell (WBC) Count 10.4 thou/uL (4.8-10.8)
[2021-05-07] MEDS ORDERED: Ondansetron PF 4 MG/2 ML Vial ONE (22:35)
[2021-05-08 11:04] LABS: Reticulocyte Count 3.6 % (0.5-1.5)
== END 2021-05-07 21:18 | disposition home or self-care (01) ==
LOC: NAV ERS 21:03
DX: D57.00 Hb-SS disease with crisis, unspecified (principal)
CPT/HCPCS: 36415; 80053; 85025; 85046; 96374; 96375; 96376; J2270; J2405; J7050

== ENCOUNTER 2021-05-10 22:54 | Emergency (ER) | payer BC ==
[2021-05-10] MEDS ORDERED: Ondansetron PF 4 MG/2 ML Vial ONE (23:43)
[2021-05-10] MEDS ORDERED: Morphine 4 MG/ML VIAL ONE (23:43)
[2021-05-10] MEDS ORDERED: diphenhydrAMINE 50 MG/ML VIAL ONE (23:43)
[2021-05-10] MEDS ORDERED: Sodium Chloride 0.9% 1,000 ML ONE (23:43)
[2021-05-10] MEDS ORDERED: Acetaminophen 325 MG TAB ONE (23:43)
[2021-05-10] MEDS ORDERED: Dexamethasone 4 mg/ml Vial ONE (23:54)
[2021-05-10 23:55] LABS: Anisocytosis MODERATE=16-30 cells (100X) (0-5/hpf); Band 4 % (5-11); Eosinophils 4 % (0-10); Lymphocytes 33 % (21-51); MDiff Complete? YES; Mean Corpuscular HGB CONC 33.3 g/dL (32.0-36.0); Mean Corpuscular Hemoglobin 28.1 pg (27.0-31.0); Mean Corpuscular Volume 84.3 fL (78.0-98.0); Mean Platelet Volume 6.7 fL (7.4-10.4); Monocytes 2 % (0-10); Neutrophil 52 % (42-75); Nucleated RBC 2 % (0); Ovalocytes SLIGHT = 2-5 cells (100X) (0-1/hpf); Platelet Count 365 thou/uL (130-400); Platelet Morphology Comment Appears Adequate; Poikilocytosis MODERATE=16-30 cells (100X) (0-5/hpf); RBC Distribution Width 17.5 % (11.5-14.5); Reactive Lymphocytes 5 % (0-10); Red Blood Cell (RBC) Count 3.55 mill/uL (4.20-5.40); Sickle Cells MODERATE= 6-15 cells (100X) (None Seen); Target Cells MODERATE= 6-15 cells (100X) (0-1/hpf)
[2021-05-10 23:58] LABS: White Blood Cell (WBC) Count 21.2 thou/uL (4.8-10.8)
[2021-05-10 23:59] LABS: Manual Diff?? YES
[2021-05-11] LABS: ALT (SGPT) 23 U/L (8-55); AST (SGOT) 31 U/L (5-34); Alkaline Phosphatase 66 U/L (40-110); Anion Gap 14 mmol/L (10-20); BUN (Urea Nitrogen) 5 mg/dL (7.0-18.7); Bilirubin, Total 1.8 mg/dL (0.2-1.2); Calc. Creatinine Clearance 0 mL/min (70-130); Calcium 8.9 mg/dL (7.8-10.44); Carbon Dioxide 24 mmol/L (22-29); Chloride 105 mmol/L (98-107); Globulin 3.3 g/dL (2.4-3.5); Glucose 92 mg/dL (70-105); Potassium 3.9 mmol/L (3.5-5.1); Protein, Total 7.3 g/dL (6.0-8.3); Sodium 139 mmol/L (136-145)
[2021-05-11 02:12] LABS: Reticulocyte Count 6.1 % (0.5-1.5)
== END 2021-05-11 01:40 | disposition home or self-care (01) ==
LOC: NAV ERS 22:54
DX: D57.00 Hb-SS disease with crisis, unspecified (principal); D72.829 Elevated white blood cell count, unspecified
CPT/HCPCS: 36415; 80053; 85025; 85046; 94760; 96374; 96375; J1100; J1200; J2270; J2405; J7050

== ENCOUNTER 2021-07-12 20:40 | Emergency (ER) | payer BC ==
[2021-07-12] MEDS ORDERED: Ondansetron PF 4 MG/2 ML Vial ONE (21:39)
[2021-07-12] MEDS ORDERED: diphenhydrAMINE 50 MG/ML VIAL ONE (21:39)
[2021-07-12] MEDS ORDERED: Morphine 4 MG/ML VIAL ONE (21:39)
[2021-07-12] MEDS ORDERED: Acetaminophen 325 MG TAB ONE (21:39)
[2021-07-12] MEDS ORDERED: Sodium Chloride 0.9% 1,000 ML ONE (21:39)
[2021-07-12 22:11] LABS: ALT (SGPT) 78 U/L (8-55); AST (SGOT) 98 U/L (5-34); Albumin 4.2 g/dL (3.5-5.0); Alkaline Phosphatase 90 U/L (40-110); Anion Gap 13 mmol/L (10-20); BUN (Urea Nitrogen) 11 mg/dL (7.0-18.7); Bilirubin, Total 1.5 mg/dL (0.2-1.2); CK (CPK) 93 U/L (29-168); Calc. Creatinine Clearance 0 mL/min (70-130); Calcium 9.2 mg/dL (7.8-10.44); Carbon Dioxide 22 mmol/L (22-29); Chloride 106 mmol/L (98-107); Globulin 3.9 g/dL (2.4-3.5); Glucose 84 mg/dL (70-105); Potassium 4.1 mmol/L (3.5-5.1); Protein, Total 8.1 g/dL (6.0-8.3); Sodium 137 mmol/L (136-145)
[2021-07-12 22:12] LABS: Anisocytosis MODERATE=16-30 cells (100X) (0-5/hpf); Band 4 % (5-11); Eosinophils 5 % (0-10); Hemoglobin 11.6 g/dL (12.0-16.0); Hypochromia MODERATE=16-30 cells (100X) (0-5/hpf); Lymphocytes 56 % (21-51); MDiff Complete? YES; Mean Corpuscular HGB CONC 34.3 g/dL (32.0-36.0); Mean Corpuscular Hemoglobin 28.8 pg (27.0-31.0); Mean Corpuscular Volume 83.9 fL (78.0-98.0); Mean Platelet Volume 7.2 fL (7.4-10.4); Monocytes 2 % (0-10); Neutrophil 33 % (42-75); Ovalocytes SLIGHT = 2-5 cells (100X) (0-1/hpf); Platelet Count 326 thou/uL (130-400); Platelet Morphology Comment Appears Adequate; RBC Distribution Width 16.2 % (11.5-14.5); Red Blood Cell (RBC) Count 4.04 mill/uL (4.20-5.40); Target Cells MODERATE= 6-15 cells (100X) (0-1/hpf)
[2021-07-12 22:13] LABS: White Blood Cell (WBC) Count 10.4 thou/uL (4.8-10.8)
== END 2021-07-12 23:40 | disposition home or self-care (01) ==
LOC: NAV ERS 20:40
DX: D57.00 Hb-SS disease with crisis, unspecified (principal)
CPT/HCPCS: 80053; 82550; 83605; 83690; 85025; 85046; 94760; 96374; 96375; J1200; J2270; J2405; J7050

== ENCOUNTER 2021-07-28 15:41 | Emergency (ER) | payer BC ==
[2021-07-28] MEDS ORDERED: Morphine 4 MG/ML VIAL ONE ×2 (16:07→17:19)
[2021-07-28] MEDS ORDERED: Ondansetron PF 4 MG/2 ML Vial ONE (16:07)
[2021-07-28] MEDS ORDERED: Sodium Chloride 0.9% 1,000 ML ONE (16:07)
[2021-07-28 16:32] LABS: #Basophils 0.1 thou/uL (0.0-0.2); #Eosinphils 0.4 thou/uL (0.0-0.7); #Lymphocytes 3.8 thou/uL (1.20-3.40); #Neutrophils 5.6 thou/uL (1.40-6.50); %Basophils 1.1 % (0.0-1.0); %Eosinophils 3.5 % (0.0-10.0); %Lymphocytes 35.2 % (21.0-51.0); %Monocytes 8.9 % (0.0-10.0); %Neutrophils 51.3 % (42.0-75.0); Mean Corpuscular HGB CONC 34.4 g/dL (32.0-36.0); Mean Corpuscular Hemoglobin 29.1 pg (27.0-31.0); Mean Corpuscular Volume 84.5 fL (78.0-98.0); Mean Platelet Volume 6.6 fL (7.4-10.4); Platelet Count 379 thou/uL (130-400); RBC Distribution Width 16.1 % (11.5-14.5); Red Blood Cell (RBC) Count 3.78 mill/uL (4.20-5.40); White Blood Cell (WBC) Count 10.9 thou/uL (4.8-10.8)
[2021-07-28 16:36] LABS: Anion Gap 13 mmol/L (10-20); BUN (Urea Nitrogen) 8 mg/dL (7.0-18.7); Calc. Creatinine Clearance 0 mL/min (70-130); Carbon Dioxide 22 mmol/L (22-29); Chloride 105 mmol/L (98-107); Glucose 92 mg/dL (70-105); Potassium 4.1 mmol/L (3.5-5.1); Sodium 136 mmol/L (136-145)
== END 2021-07-28 18:24 | disposition home or self-care (01) ==
LOC: NAV ERS 15:41
DX: D57.00 Hb-SS disease with crisis, unspecified (principal); Z79.891 Long term (current) use of opiate analgesic
CPT/HCPCS: 80048; 85025; 96374; 96375; 96376; J2270; J2405; J7050

== ENCOUNTER 2021-08-23 23:41 | Emergency (ER) | payer BC ==
[2021-08-24] MEDS ORDERED: Sodium Chloride 0.9% 1,000 ML ONE (00:07)
[2021-08-24] MEDS ORDERED: Ondansetron PF 4 MG/2 ML Vial ONE (00:07)
[2021-08-24] MEDS ORDERED: Morphine 4 MG/ML VIAL ONE (00:07)
[2021-08-24 00:44] LABS: Anion Gap 12 mmol/L (10-20); BUN (Urea Nitrogen) 5 mg/dL (7.0-18.7); Calc. Creatinine Clearance 0 mL/min (70-130); Calcium 9.4 mg/dL (7.8-10.44); Carbon Dioxide 23 mmol/L (22-29); Chloride 106 mmol/L (98-107); Glucose 113 mg/dL (70-105); Potassium 3.6 mmol/L (3.5-5.1); Sodium 137 mmol/L (136-145)
[2021-08-24 01:13] LABS: Hemoglobin 10.7 g/dL (12.0-16.0); Mean Corpuscular HGB CONC 35.1 g/dL (32.0-36.0); Mean Corpuscular Hemoglobin 29.3 pg (27.0-31.0); Mean Corpuscular Volume 83.5 fL (78.0-98.0); Mean Platelet Volume 7.7 fL (7.4-10.4); Platelet Count 328 thou/uL (130-400); Red Blood Cell (RBC) Count 3.67 mill/uL (4.20-5.40)
[2021-08-24 01:35] LABS: MDiff Complete? YES; Neutrophil 58 % (42-75)
[2021-08-24 01:36] LABS: Eosinophils 2 % (0-10); Lymphocytes 35 % (21-51); Monocytes 5 % (0-10); Platelet Morphology Comment Appears Adequate; RBC Morphology Normal
[2021-08-24 01:37] LABS: Manual Diff?? YES
[2021-08-24 01:48] LABS: White Blood Cell (WBC) Count 15.9 thou/uL (4.8-10.8)
== END 2021-08-24 02:43 | disposition home or self-care (01) ==
LOC: NAV ERS 23:41
DX: D57.00 Hb-SS disease with crisis, unspecified (principal); Z79.899 Other long term (current) drug therapy
CPT/HCPCS: 36415; 80048; 85025; 96374; 96375; J2270; J2405; J7050

== ENCOUNTER 2021-08-29 11:09 | Emergency (ER) | payer BC ==
[2021-08-29] MEDS ORDERED: Morphine 4 MG/ML VIAL ONE (11:43)
[2021-08-29] MEDS ORDERED: Sodium Chloride 0.9% 1,000 ML ONE (11:44)
[2021-08-29] MEDS ORDERED: Ondansetron PF 4 MG/2 ML Vial ONE ×2 (11:47→12:07)
[2021-08-29 12:09] LABS: ALT (SGPT) 21 U/L (8-55); AST (SGOT) 25 U/L (5-34); Albumin 4.2 g/dL (3.5-5.0); Alkaline Phosphatase 53 U/L (40-110); Anion Gap 14 mmol/L (10-20); BUN (Urea Nitrogen) 7 mg/dL (7.0-18.7); Bilirubin, Total 2.1 mg/dL (0.2-1.2); Calc. Creatinine Clearance 0 mL/min (70-130); Calcium 9.3 mg/dL (7.8-10.44); Carbon Dioxide 20 mmol/L (22-29); Chloride 107 mmol/L (98-107); Globulin 3.4 g/dL (2.4-3.5); Glucose 82 mg/dL (70-105); Protein, Total 7.6 g/dL (6.0-8.3); Sodium 136 mmol/L (136-145)
[2021-08-29 12:11] LABS: Anisocytosis SLIGHT = 6-15 cells (100X) (0-5/hpf); Hemoglobin 11.2 g/dL (12.0-16.0); Hypochromia SLIGHT = 6-15 cells (100X) (0-5/hpf); MDiff Complete? YES; Mean Corpuscular HGB CONC 34.7 g/dL (32.0-36.0); Mean Corpuscular Hemoglobin 29.3 pg (27.0-31.0); Mean Corpuscular Volume 84.5 fL (78.0-98.0); Mean Platelet Volume 6.8 fL (7.4-10.4); Platelet Count 329 thou/uL (130-400); Platelet Morphology Comment Appears Adequate; Poikilocytosis SLIGHT = 6-15 cells (100X) (0-5/hpf); RBC Distribution Width 16.1 % (11.5-14.5); Sickle Cells SLIGHT = 1-5 cells (100X) (None Seen)
[2021-08-29 12:13] LABS: Eosinophils 1 % (0-10); Lymphocytes 69 % (21-51); Monocytes 3 % (0-10); Neutrophil 27 % (42-75)
[2021-08-29 17:25] LABS: Reticulocyte Count 4.7 % (0.5-1.5)
== END 2021-08-29 13:17 | disposition home or self-care (01) ==
LOC: NAV ERS 11:09
DX: D57.00 Hb-SS disease with crisis, unspecified (principal)
CPT/HCPCS: 80053; 85025; 85046; 96365; 96375; J2270; J2405; J7050

== ENCOUNTER 2021-09-05 22:33 | Emergency (ER) | payer BC ==
[2021-09-05] MEDS ORDERED: Sodium Chloride 0.9% 1,000 ML ONE (22:58)
[2021-09-05] MEDS ORDERED: Morphine 4 MG/ML VIAL ONE ×2 (22:58→23:38)
[2021-09-05] MEDS ORDERED: Ondansetron PF 4 MG/2 ML Vial ONE (22:58)
[2021-09-05 23:26] LABS: Anion Gap 15 mmol/L (10-20); BUN (Urea Nitrogen) 12 mg/dL (7.0-18.7); Calc. Creatinine Clearance 0 mL/min (70-130); Calcium 9.4 mg/dL (7.8-10.44); Carbon Dioxide 19 mmol/L (22-29); Chloride 104 mmol/L (98-107); Glucose 90 mg/dL (70-105); Potassium 3.8 mmol/L (3.5-5.1); Sodium 134 mmol/L (136-145)
[2021-09-05 23:28] LABS: Hemoglobin 11.2 g/dL (12.0-16.0); MDiff Complete? YES; Manual Diff?? YES; Mean Corpuscular HGB CONC 34.6 g/dL (32.0-36.0); Mean Corpuscular Hemoglobin 29.2 pg (27.0-31.0); Mean Corpuscular Volume 84.3 fL (78.0-98.0); Mean Platelet Volume 6.9 fL (7.4-10.4); Platelet Count 297 thou/uL (130-400); RBC Distribution Width 14.7 % (11.5-14.5); Red Blood Cell (RBC) Count 3.83 mill/uL (4.20-5.40); White Blood Cell (WBC) Count 19.7 thou/uL (4.8-10.8)
[2021-09-05 23:29] LABS: Lymphocytes 30 % (21-51)
[2021-09-05 23:30] LABS: Eosinophils 4 % (0-10); Monocytes 10 % (0-10); Neutrophil 56 % (42-75); Platelet Morphology Comment Appears Adequate; Target Cells MARKED = >16 cells (100X) (0-1/hpf)
[2021-09-05] MEDS ORDERED: traMADol HCl 50 MG TAB ONE (23:57)
== END 2021-09-06 00:07 | disposition home or self-care (01) ==
LOC: NAV ERS 22:33
DX: D57.00 Hb-SS disease with crisis, unspecified (principal)
CPT/HCPCS: 80048; 85025; 96374; 96375; J2270; J2405; J7050

== ENCOUNTER 2021-10-20 20:45 | Emergency (ER) | payer BC ==
[2021-10-20] MEDS ORDERED: Sodium Chloride 0.9% 1,000 ML ONE (21:44)
[2021-10-20] MEDS ORDERED: Ondansetron PF 4 MG/2 ML Vial ONE (21:44)
[2021-10-20] MEDS ORDERED: Morphine 4 MG/ML VIAL ONE (21:44)
[2021-10-20 22:09] LABS: #Basophils 0.2 thou/uL (0.0-0.2); #Eosinphils 0.3 thou/uL (0.0-0.7); #Lymphocytes 11.6 thou/uL (1.20-3.40); #Monocytes 1.1 thou/uL (0.11-0.59); #Neutrophils 5.1 thou/uL (1.40-6.50); %Basophils 1.1 % (0.0-1.0); %Lymphocytes 63.4 % (21.0-51.0); %Monocytes 5.9 % (0.0-10.0); %Neutrophils 27.8 % (42.0-75.0); Hemoglobin 10.1 g/dL (12.0-16.0); Manual Diff?? NO; Mean Corpuscular HGB CONC 34.2 g/dL (32.0-36.0); Mean Corpuscular Hemoglobin 28.5 pg (27.0-31.0); Mean Corpuscular Volume 83.4 fL (78.0-98.0); Platelet Count 319 thou/uL (130-400); RBC Distribution Width 14.3 % (11.5-14.5); Red Blood Cell (RBC) Count 3.53 mill/uL (4.20-5.40); White Blood Cell (WBC) Count 18.3 thou/uL (4.8-10.8)
[2021-10-20 22:10] LABS: %Eosinophils 1.8 % (0.0-10.0)
[2021-10-20 22:19] LABS: Anion Gap 9 mmol/L (10-20); BUN (Urea Nitrogen) 10 mg/dL (7.0-18.7); Calc. Creatinine Clearance 0 mL/min (70-130); Calcium 8.8 mg/dL (7.8-10.44); Carbon Dioxide 23 mmol/L (22-29); Chloride 108 mmol/L (98-107); Glucose 98 mg/dL (70-105); Potassium 3.9 mmol/L (3.5-5.1); Sodium 136 mmol/L (136-145)
[2021-10-20] MEDS ORDERED: traMADol HCl 50 MG TAB ONE (23:04)
== END 2021-10-20 23:50 | disposition home or self-care (01) ==
LOC: NAV ERS 20:45
DX: D57.00 Hb-SS disease with crisis, unspecified (principal)
CPT/HCPCS: 80048; 85025; 96374; 96375; J2270; J2405; J7050

== ENCOUNTER 2021-11-13 08:46 | Emergency (ER) | payer BC ==
[2021-11-13] MEDS ORDERED: Sodium Chloride 0.9% 1,000 ML ONE (09:11)
[2021-11-13] MEDS ORDERED: Morphine 4 MG/ML VIAL ONE ×2 (09:45→10:33)
[2021-11-13] MEDS ORDERED: Ondansetron PF 4 MG/2 ML Vial ONE (09:45)
[2021-11-13 10:00] LABS: BHCG - Serum Negative (NEGATIVE); Pregs Control Bar Appear? YES (CONTROL BAR)
[2021-11-13 10:14] LABS: Mean Corpuscular Hemoglobin 28.8 pg (27.0-31.0); Mean Corpuscular Volume 84.6 fL (78.0-98.0); Mean Platelet Volume 6.9 fL (7.4-10.4); Platelet Count 343 thou/uL (130-400); RBC Distribution Width 14.8 % (11.5-14.5); Red Blood Cell (RBC) Count 4.17 mill/uL (4.20-5.40)
[2021-11-13 10:18] LABS: Anisocytosis SLIGHT = 6-15 cells (100X) (0-5/hpf); Eosinophils 1 % (0-10); Lymphocytes 50 % (21-51); Monocytes 3 % (0-10); Neutrophil 46 % (42-75); Ovalocytes SLIGHT = 2-5 cells (100X) (0-1/hpf); Sickle Cells SLIGHT = 1-5 cells (100X) (None Seen); Target Cells SLIGHT = 2-5 cells (100X) (0-1/hpf)
[2021-11-13 10:19] LABS: Platelet Morphology Comment Appears Adequate
[2021-11-13 10:21] LABS: ALT (SGPT) 27 U/L (8-55); AST (SGOT) 47 U/L (5-34); Albumin 4.9 g/dL (3.5-5.0); Alkaline Phosphatase 66 U/L (40-110); Anion Gap 15 mmol/L (10-20); BUN (Urea Nitrogen) 10 mg/dL (7.0-18.7); Bilirubin, Total 1.6 mg/dL (0.2-1.2); Calc. Creatinine Clearance 0 mL/min (70-130); Calcium 9.5 mg/dL (7.8-10.44); Carbon Dioxide 21 mmol/L (22-29); Chloride 107 mmol/L (98-107); Globulin 3.9 g/dL (2.4-3.5); Glucose 88 mg/dL (70-105); Potassium 5.7 mmol/L (3.5-5.1); Protein, Total 8.8 g/dL (6.0-8.3); Sodium 137 mmol/L (136-145)
[2021-11-13 10:22] LABS: MDiff Complete? YES
[2021-11-13 10:25] LABS: White Blood Cell (WBC) Count 11.3 thou/uL (4.8-10.8)
[2021-11-13 10:58] LABS: Bilirubin Negative (Negative); Blood, Urine Negative (Negative); Clarity Clear (Clear); Glucose, Urine (Dipstick) Negative (Negative); Ketone, Urine Negative (Negative); Leukocyte Negative (Negative); Nitrite Negative (Negative); Protein, Urine (Dipstick) Negative (Neg-Trace); Specific Gravity, Urine 1.015 (1.005-1.030)
[2021-11-13 17:24] LABS: Reticulocyte Count 2.6 % (0.5-1.5)
== END 2021-11-13 11:22 | disposition home or self-care (01) ==
LOC: NAV ERS 08:46
DX: D57.00 Hb-SS disease with crisis, unspecified (principal)
CPT/HCPCS: 80053; 81003; 84703; 85025; 85046; 96374; 96376; J2270; J2405; J7050

== ENCOUNTER 2021-11-25 18:03 | Emergency (ER) | payer BC ==
[2021-11-25 19:10] LABS: Bilirubin Negative (Negative); Blood, Urine Negative (Negative); Clarity Clear (Clear); Glucose, Urine (Dipstick) Negative (Negative); Ketone, Urine Negative (Negative); Leukocyte Negative (Negative); Nitrite Negative (Negative); Protein, Urine (Dipstick) Negative (Neg-Trace); Specific Gravity, Urine 1.015 (1.005-1.030)
[2021-11-25] MEDS ORDERED: Sodium Chloride 0.9% 1,000 ML ONE (19:10)
[2021-11-25] MEDS ORDERED: Morphine 4 MG/ML VIAL ONE (19:10)
[2021-11-25] MEDS ORDERED: Ondansetron PF 4 MG/2 ML Vial ONE (19:10)
[2021-11-25 19:21] LABS: BHCG - Serum Negative (NEGATIVE); Pregs Control Bar Appear? YES (CONTROL BAR)
[2021-11-25 19:32] LABS: #Basophils 0.2 thou/uL (0.0-0.2); #Eosinphils 0.3 thou/uL (0.0-0.7); #Lymphocytes 4.4 thou/uL (1.20-3.40); #Monocytes 0.8 thou/uL (0.11-0.59); #Neutrophils 5.3 thou/uL (1.40-6.50); %Basophils 1.5 % (0.0-1.0); %Eosinophils 2.6 % (0.0-10.0); %Lymphocytes 40.3 % (21.0-51.0); %Monocytes 7.5 % (0.0-10.0); %Neutrophils 48.2 % (42.0-75.0); Hemoglobin 10.9 g/dL (12.0-16.0); Mean Corpuscular HGB CONC 34.9 g/dL (32.0-36.0); Mean Corpuscular Hemoglobin 29.1 pg (27.0-31.0); Mean Corpuscular Volume 83.5 fL (78.0-98.0); Mean Platelet Volume 7.2 fL (7.4-10.4); Platelet Count 343 thou/uL (130-400); RBC Distribution Width 14.5 % (11.5-14.5); Red Blood Cell (RBC) Count 3.75 mill/uL (4.20-5.40)
[2021-11-25 19:33] LABS: Anisocytosis MODERATE=16-30 cells (100X) (0-5/hpf); Poikilocytosis SLIGHT = 6-15 cells (100X) (0-5/hpf); Sickle Cells SLIGHT = 1-5 cells (100X) (None Seen); Target Cells MARKED = >16 cells (100X) (0-1/hpf)
[2021-11-25 19:34] LABS: Platelet Morphology Comment Appears Adequate; Tear Drops SLIGHT = 2-5 cells (100X) (0-1/hpf)
[2021-11-25 19:50] LABS: ALT (SGPT) 24 U/L (8-55); AST (SGOT) 19 U/L (5-34); Albumin 4.2 g/dL (3.5-5.0); Alkaline Phosphatase 60 U/L (40-110); Anion Gap 12 mmol/L (10-20); BUN (Urea Nitrogen) 8 mg/dL (7.0-18.7); Bilirubin, Total 1.5 mg/dL (0.2-1.2); Calc. Creatinine Clearance 0 mL/min (70-130); Calcium 8.7 mg/dL (7.8-10.44); Carbon Dioxide 24 mmol/L (22-29); Chloride 104 mmol/L (98-107); Globulin 3.2 g/dL (2.4-3.5); Glucose 89 mg/dL (70-105); Potassium 4.3 mmol/L (3.5-5.1); Protein, Total 7.4 g/dL (6.0-8.3); Sodium 136 mmol/L (136-145)
[2021-11-25 20:56] LABS: Reticulocyte Count 5.53 % (0.45-2.28)
== END 2021-11-25 20:54 | disposition home or self-care (01) ==
LOC: NAV ERS 18:03
DX: D57.1 Sickle-cell disease without crisis (principal); M54.50 Low back pain, unspecified; M79.606 Pain in leg, unspecified
CPT/HCPCS: 80053; 81003; 84703; 85025; 85046; 96374; 96375; J2270; J2405; J7050

== ENCOUNTER 2022-01-10 17:48 | Emergency (ER) | payer BC, SELFPAY ==
[2022-01-10] MEDS ORDERED: Morphine 4 MG/ML VIAL ONE (18:22)
[2022-01-10] MEDS ORDERED: diphenhydrAMINE 50 MG/ML VIAL ONE (18:23)
[2022-01-10] MEDS ORDERED: Acetaminophen 325 MG TAB ONE (18:23)
[2022-01-10] MEDS ORDERED: Sodium Chloride 0.9% 1,000 ML ONE (18:23)
[2022-01-10] MEDS ORDERED: Ondansetron PF 4 MG/2 ML Vial ONE (18:23)
[2022-01-10 18:42] LABS: Hemoglobin 10.3 g/dL (12.0-16.0); Mean Corpuscular HGB CONC 32.6 g/dL (32.0-36.0); Mean Corpuscular Hemoglobin 27.9 pg (27.0-31.0); Mean Corpuscular Volume 85.5 fL (78.0-98.0); Mean Platelet Volume 7.4 fL (7.4-10.4); Platelet Count 370 thou/uL (130-400); RBC Distribution Width 14.6 % (11.5-14.5); Red Blood Cell (RBC) Count 3.68 mill/uL (4.20-5.40); White Blood Cell (WBC) Count 9.4 thou/uL (4.8-10.8)
[2022-01-10 18:51] LABS: ALT (SGPT) 27 U/L (8-55); AST (SGOT) 24 U/L (5-34); Albumin 4.3 g/dL (3.5-5.0); Alkaline Phosphatase 62 U/L (40-110); Anion Gap 14 mmol/L (10-20); BUN (Urea Nitrogen) 6 mg/dL (7.0-18.7); Bilirubin, Total 1.5 mg/dL (0.2-1.2); Calc. Creatinine Clearance 0 mL/min (70-130); Calcium 9.2 mg/dL (7.8-10.44); Carbon Dioxide 24 mmol/L (22-29); Chloride 105 mmol/L (98-107); Globulin 3.1 g/dL (2.4-3.5); Glucose 112 mg/dL (70-105); Potassium 3.8 mmol/L (3.5-5.1); Protein, Total 7.4 g/dL (6.0-8.3); Sodium 139 mmol/L (136-145)
[2022-01-10 19:01] LABS: Lymphocytes 47 % (21-51); MDiff Complete? YES; Manual Diff?? YES; Monocytes 3 % (0-10); Neutrophil 49 % (42-75)
[2022-01-10 19:02] LABS: Anisocytosis SLIGHT = 6-15 cells (100X) (0-5/hpf); Hypochromia SLIGHT = 6-15 cells (100X) (0-5/hpf); Nucleated RBC 1 % (0); Platelet Morphology Comment Appears Adequate
[2022-01-10 19:47] LABS: Bilirubin Negative (Negative); Blood, Urine Negative (Negative); Clarity Clear (Clear); Glucose, Urine (Dipstick) Negative (Negative); Ketone, Urine Negative (Negative); Leukocyte Negative (Negative); Nitrite Negative (Negative); Protein, Urine (Dipstick) Negative (Neg-Trace); pH, Urine 6.5 (5.0-9.0)
[2022-01-10 19:48] LABS: Pregnancy Test - Urine (BHCG) Negative (Negative); Pregu Control Background? CLEAR/WHITE (CLR/WHITE); Pregu Control Bar Appear? YES (CONTROL BAR)
[2022-01-11 15:30] LABS: Reticulocyte Count 4.3 % (0.5-1.5)
== END 2022-01-10 20:09 | disposition home or self-care (01) ==
LOC: NAV ERS 17:48
DX: D57.00 Hb-SS disease with crisis, unspecified (principal)
CPT/HCPCS: 36415; 80053; 81003; 81025; 85025; 85046; 94760; 96374; 96375; J1200; J2270; J2405; J7050

== ENCOUNTER 2022-02-23 09:10 | Emergency (ER) | payer SELFPAY ==
[2022-02-23] MEDS ORDERED: Sodium Chloride 0.9% 1,000 ML ONE (09:37)
[2022-02-23] MEDS ORDERED: Ondansetron PF 4 MG/2 ML Vial ONE (09:37)
[2022-02-23] MEDS ORDERED: Morphine 4 MG/ML VIAL ONE ×2 (09:37→10:42)
[2022-02-23 10:01] LABS: #Basophils 0.1 thou/uL (0.0-0.2); #Eosinphils 0.2 thou/uL (0.0-0.7); #Lymphocytes 4.5 thou/uL (1.20-3.40); #Monocytes 0.6 thou/uL (0.11-0.59); #Neutrophils 6.2 thou/uL (1.40-6.50); %Basophils 1.3 % (0.0-1.0); %Eosinophils 2.1 % (0.0-10.0); %Lymphocytes 38.6 % (21.0-51.0); Mean Corpuscular HGB CONC 33.4 g/dL (32.0-36.0); Mean Corpuscular Hemoglobin 28.6 pg (27.0-31.0); Mean Corpuscular Volume 85.7 fL (78.0-98.0); Mean Platelet Volume 7.5 fL (7.4-10.4); Platelet Count 329 thou/uL (130-400); RBC Distribution Width 14.3 % (11.5-14.5); Red Blood Cell (RBC) Count 3.85 mill/uL (4.20-5.40)
[2022-02-23 10:02] LABS: ALT (SGPT) 24 U/L (8-55); AST (SGOT) 29 U/L (5-34); Albumin 4.7 g/dL (3.5-5.0); Alkaline Phosphatase 58 U/L (40-110); Anion Gap 15 mmol/L (10-20); BUN (Urea Nitrogen) 11 mg/dL (7.0-18.7); Bilirubin, Total 2.7 mg/dL (0.2-1.2); Calc. Creatinine Clearance 0 mL/min (70-130); Calcium 9.2 mg/dL (7.8-10.44); Carbon Dioxide 19 mmol/L (22-29); Chloride 107 mmol/L (98-107); Globulin 3.3 g/dL (2.4-3.5); Glucose 87 mg/dL (70-105); Potassium 3.8 mmol/L (3.5-5.1); Sodium 137 mmol/L (136-145)
[2022-02-23 10:03] LABS: White Blood Cell (WBC) Count 11.6 thou/uL (4.8-10.8)
[2022-02-23 10:56] LABS: Bilirubin Negative (Negative); Blood, Urine Negative (Negative); Clarity Clear (Clear); Glucose, Urine (Dipstick) Negative (Negative); Ketone, Urine Negative (Negative); Leukocyte Negative (Negative); Nitrite Negative (Negative); Protein, Urine (Dipstick) Negative (Neg-Trace); Urobilinogen 0.2 mg/dL (Less than 2); pH, Urine 5.5 (5.0-9.0)
[2022-02-23 16:45] LABS: Reticulocyte Count 2.6 % (0.5-1.5)
== END 2022-02-23 11:21 | disposition home or self-care (01) ==
LOC: NAV ERS 09:10
DX: D57.00 Hb-SS disease with crisis, unspecified (principal)
CPT/HCPCS: 80053; 81003; 85025; 85046; 96361; 96374; 96375; 96376; J2270; J2405; J7050

== ENCOUNTER 2022-03-27 01:39 | Emergency (ER) | payer SELFPAY ==
[2022-03-27] MEDS ORDERED: Morphine 4 MG/ML VIAL ONE (02:49)
[2022-03-27 03:17] LABS: ALT (SGPT) 17 U/L (8-55); AST (SGOT) 25 U/L (5-34); Albumin 4.3 g/dL (3.5-5.0); Alkaline Phosphatase 56 U/L (40-110); Anion Gap 17 mmol/L (10-20); BUN (Urea Nitrogen) 13 mg/dL (7.0-18.7); Bilirubin, Total 1.2 mg/dL (0.2-1.2); Calc. Creatinine Clearance 0 mL/min (70-130); Calcium 9.1 mg/dL (7.8-10.44); Carbon Dioxide 19 mmol/L (22-29); Chloride 106 mmol/L (98-107); Estimated GFR 116; Globulin 2.7 g/dL (2.4-3.5); Glucose 98 mg/dL (70-105); Hypochromia SLIGHT = 6-15 cells (100X) (0-5/hpf); MDiff Complete? YES; Potassium 4.3 mmol/L (3.5-5.1); Sodium 138 mmol/L (136-145); Target Cells SLIGHT = 2-5 cells (100X) (0-1/hpf)
[2022-03-27 03:18] LABS: #Basophils 0.2 thou/uL (0.0-0.2); #Eosinphils 0.4 thou/uL (0.0-0.7); #Lymphocytes 12.1 thou/uL (1.20-3.40); #Monocytes 0.7 thou/uL (0.11-0.59); %Eosinophils 2.4 % (0.0-10.0); %Lymphocytes 65.8 % (21.0-51.0); %Monocytes 3.6 % (0.0-10.0); %Neutrophils 27.2 % (42.0-75.0); Hemoglobin 9.8 g/dL (12.0-16.0); Mean Corpuscular HGB CONC 33.9 g/dL (32.0-36.0); Mean Corpuscular Volume 85.6 fL (78.0-98.0); Mean Platelet Volume 7.4 fL (7.4-10.4); Platelet Count 321 thou/uL (130-400); RBC Distribution Width 15.4 % (11.5-14.5); Red Blood Cell (RBC) Count 3.39 mill/uL (4.20-5.40)
[2022-03-27 03:19] LABS: White Blood Cell (WBC) Count 18.3 thou/uL (4.8-10.8)
[2022-03-27 12:43] LABS: Reticulocyte Count 4.9 % (0.5-1.5)
== END 2022-03-27 04:22 | disposition home or self-care (01) ==
LOC: NAV ERS 01:39
DX: D57.00 Hb-SS disease with crisis, unspecified (principal)
CPT/HCPCS: 80053; 85025; 85046; 96374; J2270

== ENCOUNTER 2022-04-27 09:24 | Emergency (ER) | payer SELFPAY ==
[2022-04-27 10:41] LABS: Bilirubin Negative (Negative); Blood, Urine Negative (Negative); Clarity Clear (Clear); Glucose, Urine (Dipstick) Negative (Negative); Ketone, Urine Negative (Negative); Leukocyte Negative (Negative); Nitrite Negative (Negative); Protein, Urine (Dipstick) Negative (Neg-Trace); Urobilinogen 0.2 mg/dL (Less than 2)
[2022-04-27] MEDS ORDERED: diphenhydrAMINE 50 MG/ML VIAL ONE (11:43)
[2022-04-27] MEDS ORDERED: Morphine 4 MG/ML VIAL ONE (11:43)
[2022-04-27 12:02] LABS: Manual Diff?? YES
[2022-04-27 12:16] LABS: ALT (SGPT) 23 U/L (8-55); AST (SGOT) 19 U/L (5-34); Albumin 4.2 g/dL (3.5-5.0); Alkaline Phosphatase 55 U/L (40-110); Anion Gap 16 mmol/L (10-20); BUN (Urea Nitrogen) 5 mg/dL (7.0-18.7); Bilirubin, Total 2.1 mg/dL (0.2-1.2); CK (CPK) 75 U/L (29-168); Calc. Creatinine Clearance 0 mL/min (70-130); Calcium 9.2 mg/dL (7.8-10.44); Carbon Dioxide 21 mmol/L (22-29); Chloride 106 mmol/L (98-107); Estimated GFR 119; Globulin 3.1 g/dL (2.4-3.5); Glucose 83 mg/dL (70-105); Potassium 4.2 mmol/L (3.5-5.1); Protein, Total 7.3 g/dL (6.0-8.3); Sodium 139 mmol/L (136-145)
[2022-04-27 12:17] LABS: BHCG - Serum Negative (NEGATIVE); Pregs Control Bar Appear? YES (CONTROL BAR)
[2022-04-27 12:34] LABS: Anisocytosis MODERATE=16-30 cells (100X) (0-5/hpf); Band 3 % (5-11); Eosinophils 3 % (0-10); Lymphocytes 43 % (21-51); MDiff Complete? YES; Mean Corpuscular Hemoglobin 28.4 pg (27.0-31.0); Monocytes 1 % (0-10); Neutrophil 47 % (42-75); Nucleated RBC 8 % (0); Platelet Morphology Comment Appears Adequate; Reactive Lymphocytes 2 % (0-10); Sickle Cells SLIGHT = 1-5 cells (100X) (None Seen); Spherocytes SLIGHT = 1-5 cells (100X) (None Seen); Target Cells MARKED = >16 cells (100X) (0-1/hpf); Tear Drops SLIGHT = 2-5 cells (100X) (0-1/hpf)
[2022-04-27 12:36] LABS: Mean Corpuscular HGB CONC 32.6 g/dL (32.0-36.0); Mean Platelet Volume 7.4 fL (7.4-10.4); Platelet Count 346 thou/uL (130-400); RBC Distribution Width 16.3 % (11.5-14.5); Red Blood Cell (RBC) Count 3.54 mill/uL (4.20-5.40); White Blood Cell (WBC) Count 9.4 thou/uL (4.8-10.8)
[2022-04-27 12:39] LABS: Lipase 2 U/L (8-78)
[2022-04-27 16:49] LABS: Reticulocyte Count 5.4 % (0.5-1.5)
== END 2022-04-27 13:40 | disposition home or self-care (01) ==
LOC: NAV ERS 09:24
DX: D57.00 Hb-SS disease with crisis, unspecified (principal)
CPT/HCPCS: 36415; 80053; 81003; 82550; 83690; 84703; 85025; 85046; 96361; 96374; 96375; J1200; J2270

== ENCOUNTER 2022-06-03 22:48 | Emergency (ER) | payer SELFPAY ==
[2022-06-03 23:25] LABS: Bilirubin Negative (Negative); Blood, Urine Negative (Negative); Clarity Clear (Clear); Glucose, Urine (Dipstick) Negative (Negative); Ketone, Urine Negative (Negative); Leukocyte Negative (Negative); Nitrite Negative (Negative); Protein, Urine (Dipstick) Negative (Neg-Trace); Specific Gravity, Urine 1.015 (1.005-1.030)
[2022-06-03] MEDS ORDERED: Sodium Chloride 0.9% 1,000 ML ONE (23:27)
[2022-06-03] MEDS ORDERED: Ondansetron PF 4 MG/2 ML Vial ONE (23:27)
[2022-06-03] MEDS ORDERED: diphenhydrAMINE 50 MG/ML VIAL ONE (23:27)
[2022-06-03] MEDS ORDERED: Acetaminophen 325 MG TAB ONE (23:27)
[2022-06-03] MEDS ORDERED: Morphine 4 MG/ML VIAL ONE (23:27)
[2022-06-03 23:36] LABS: Pregnancy Test - Urine (BHCG) Negative (Negative); Pregu Control Background? CLEAR/WHITE (CLR/WHITE); Pregu Control Bar Appear? YES (CONTROL BAR); Specific Gravity 1.025 (1.002-1.036)
[2022-06-03 23:39] LABS: #Basophils 0.2 thou/uL (0.0-0.2); #Eosinphils 0.3 thou/uL (0.0-0.7); #Lymphocytes 6.3 thou/uL (1.20-3.40); #Monocytes 0.7 thou/uL (0.11-0.59); #Neutrophils 4.9 thou/uL (1.40-6.50); %Basophils 1.4 % (0.0-1.0); %Eosinophils 2.4 % (0.0-10.0); %Lymphocytes 50.9 % (21.0-51.0); %Monocytes 5.5 % (0.0-10.0); %Neutrophils 39.8 % (42.0-75.0); Hemoglobin 9.6 g/dL (12.0-16.0); Hypochromia MODERATE=16-30 cells (100X) (0-5/hpf); MDiff Complete? YES; Mean Corpuscular HGB CONC 34.3 g/dL (32.0-36.0); Mean Corpuscular Hemoglobin 29.1 pg (27.0-31.0); Mean Corpuscular Volume 84.7 fL (78.0-98.0); Mean Platelet Volume 7.8 fL (7.4-10.4); Platelet Count 140 thou/uL (130-400); RBC Distribution Width 14.7 % (11.5-14.5); Red Blood Cell (RBC) Count 3.32 mill/uL (4.20-5.40); Schistocytes SLIGHT = 2-5 cells (100X) (0-1/hpf); Target Cells SLIGHT = 2-5 cells (100X) (0-1/hpf)
[2022-06-03 23:40] LABS: White Blood Cell (WBC) Count 12.3 thou/uL (4.8-10.8)
[2022-06-03 23:44] LABS: ALT (SGPT) 21 U/L (8-55); AST (SGOT) 34 U/L (5-34); Alkaline Phosphatase 50 U/L (40-110); Anion Gap 15 mmol/L (10-20); BUN (Urea Nitrogen) 9 mg/dL (7.0-18.7); Bilirubin, Total 1.3 mg/dL (0.2-1.2); Calc. Creatinine Clearance 0 mL/min (70-130); Calcium 8.7 mg/dL (7.8-10.44); Carbon Dioxide 17 mmol/L (22-29); Chloride 109 mmol/L (98-107); Estimated GFR 93; Glucose 97 mg/dL (70-105); Lipase 7 U/L (8-78); Potassium 4.1 mmol/L (3.5-5.1); Sodium 137 mmol/L (136-145)
[2022-06-04 11:20] LABS: Reticulocyte Count 2.9 % (0.5-1.5)
== END 2022-06-04 01:46 | disposition home or self-care (01) ==
LOC: NAV ERS 22:48
DX: D57.00 Hb-SS disease with crisis, unspecified (principal)
CPT/HCPCS: 80053; 81003; 81025; 83690; 85025; 85046; 94760; 96361; 96374; 96375; J1200; J2270; J2405; J7050

== ENCOUNTER 2022-07-02 00:29 | Emergency (ER) | payer SELFPAY ==
[2022-07-02] MEDS ORDERED: Morphine 4 MG/ML VIAL ONE (01:18)
[2022-07-02] MEDS ORDERED: Ondansetron PF 4 MG/2 ML Vial ONE (01:18)
[2022-07-02] MEDS ORDERED: Sodium Chloride 0.9% 1,000 ML ONE (01:18)
[2022-07-02 02:13] LABS: #Basophils 0.2 thou/uL (0.0-0.2); #Eosinphils 0.3 thou/uL (0.0-0.7); #Lymphocytes 90.1 thou/uL (1.20-3.40); #Monocytes 0.6 thou/uL (0.11-0.59); #Neutrophils 4.8 thou/uL (1.40-6.50); %Basophils 1.4 % (0.0-1.0); %Lymphocytes 60.6 % (21.0-51.0); %Monocytes 4.1 % (0.0-10.0); %Neutrophils 31.9 % (42.0-75.0); Hemoglobin 10.7 g/dL (12.0-16.0); Hypochromia MODERATE=16-30 cells (100X) (0-5/hpf); MDiff Complete? YES; Mean Corpuscular HGB CONC 34.1 g/dL (32.0-36.0); Mean Corpuscular Hemoglobin 29.3 pg (27.0-31.0); Mean Corpuscular Volume 85.9 fL (78.0-98.0); Mean Platelet Volume 7.9 fL (7.4-10.4); Platelet Count 247 thou/uL (130-400); RBC Distribution Width 15.1 % (11.5-14.5); Red Blood Cell (RBC) Count 3.66 mill/uL (4.20-5.40); Target Cells MODERATE= 6-15 cells (100X) (0-1/hpf); White Blood Cell (WBC) Count 14.9 thou/uL (4.8-10.8)
[2022-07-02 02:24] LABS: ALT (SGPT) 25 U/L (8-55); AST (SGOT) 24 U/L (5-34); Albumin 4.4 g/dL (3.5-5.0); Alkaline Phosphatase 52 U/L (40-110); Anion Gap 18 mmol/L (10-20); BUN (Urea Nitrogen) 10 mg/dL (7.0-18.7); Bilirubin, Total 1.4 mg/dL (0.2-1.2); Calc. Creatinine Clearance 0 mL/min (70-130); Calcium 8.6 mg/dL (7.8-10.44); Carbon Dioxide 19 mmol/L (22-29); Chloride 106 mmol/L (98-107); Estimated GFR 116; Globulin 3.2 g/dL (2.4-3.5); Glucose 88 mg/dL (70-105); Protein, Total 7.6 g/dL (6.0-8.3); Sodium 139 mmol/L (136-145)
== END 2022-07-02 02:45 | disposition home or self-care (01) ==
LOC: NAV ERS 00:29
DX: D57.00 Hb-SS disease with crisis, unspecified (principal)
CPT/HCPCS: 80053; 85025; 96361; 96374; 96375; J2270; J2405; J7050

== ENCOUNTER 2022-07-08 00:03 | Emergency (ER) | payer SELFPAY ==
[2022-07-08] MEDS ORDERED: Sodium Chloride 0.9% 1,000 ML ONE (00:54)
[2022-07-08] MEDS ORDERED: Ondansetron PF 4 MG/2 ML Vial ONE (00:54)
[2022-07-08] MEDS ORDERED: Morphine 4 MG/ML VIAL ONE (00:54)
[2022-07-08 01:16] LABS: #Basophils 0.2 thou/uL (0.0-0.2); #Eosinphils 0.3 thou/uL (0.0-0.7); #Lymphocytes 6.8 thou/uL (1.20-3.40); #Monocytes 0.9 thou/uL (0.11-0.59); #Neutrophils 4.7 thou/uL (1.40-6.50); %Basophils 1.4 % (0.0-1.0); %Eosinophils 2.6 % (0.0-10.0); %Lymphocytes 52.6 % (21.0-51.0); %Monocytes 7.3 % (0.0-10.0); %Neutrophils 36.1 % (42.0-75.0); Mean Corpuscular HGB CONC 33.8 g/dL (32.0-36.0); Mean Corpuscular Hemoglobin 29.1 pg (27.0-31.0); Mean Corpuscular Volume 86.2 fl (78.0-98.0); Mean Platelet Volume 7.5 fL (7.4-10.4); Platelet Count 251 thou/uL (130-400); RBC Distribution Width 14.9 % (11.5-14.5); Red Blood Cell (RBC) Count 3.76 mill/uL (4.20-5.40); White Blood Cell (WBC) Count 12.9 thou/uL (4.8-10.8)
[2022-07-08 01:25] LABS: ALT (SGPT) 23 U/L (8-55); AST (SGOT) 28 U/L (5-34); Albumin 3.9 g/dL (3.5-5.0); Alkaline Phosphatase 52 U/L (40-110); Anion Gap 13 mmol/L (10-20); BUN (Urea Nitrogen) 8 mg/dL (7.0-18.7); Bilirubin, Total 1.4 mg/dL (0.2-1.2); Calc. Creatinine Clearance 0 mL/min (70-130); Calcium 8.6 mg/dL (7.8-10.44); Carbon Dioxide 20 mmol/L (22-29); Chloride 108 mmol/L (98-107); Estimated GFR 112; Globulin 3.1 g/dL (2.4-3.5); Potassium 4.4 mmol/L (3.5-5.1); Sodium 137 mmol/L (136-145)
[2022-07-08 01:28] LABS: Glucose 106 mg/dL (70-105)
[2022-07-08] MEDS ORDERED: Morphine 2 MG/ML VIAL ONE (03:01)
== END 2022-07-08 03:47 | disposition home or self-care (01) ==
LOC: NAV ERS 00:03
DX: D57.00 Hb-SS disease with crisis, unspecified (principal); Z79.899 Other long term (current) drug therapy
CPT/HCPCS: 36415; 80053; 85025; 96361; 96374; 96375; 96376; J2270; J2405; J7050

== ENCOUNTER 2022-09-12 20:30 | Emergency (ER) | payer BC ==
[2022-09-12] MEDS ORDERED: Morphine 4 MG/ML VIAL ONE (20:48)
[2022-09-12] MEDS ORDERED: Ondansetron PF 4 MG/2 ML Vial ONE (20:48)
[2022-09-12] MEDS ORDERED: Sodium Chloride 0.9% 1,000 ML ONE (20:48)
[2022-09-12] MEDS ORDERED: diphenhydrAMINE 50 MG/ML VIAL ONE (20:48)
[2022-09-12 21:19] LABS: BHCG - Serum Negative (NEGATIVE); Pregs Control Bar Appear? YES (CONTROL BAR)
[2022-09-12 21:27] LABS: ALT (SGPT) 18 U/L (8-55); AST (SGOT) 18 U/L (5-34); Albumin 4.2 g/dL (3.5-5.0); Alkaline Phosphatase 49 U/L (40-110); Anion Gap 14 mmol/L (10-20); BUN (Urea Nitrogen) 9 mg/dL (7.0-18.7); Bilirubin, Total 1.9 mg/dL (0.2-1.2); Calc. Creatinine Clearance 0 mL/min (70-130); Calcium 8.9 mg/dL (7.8-10.44); Carbon Dioxide 23 mmol/L (22-29); Chloride 106 mmol/L (98-107); Estimated GFR 117; Globulin 3.3 g/dL (2.4-3.5); Glucose 85 mg/dL (70-105); Potassium 3.7 mmol/L (3.5-5.1); Protein, Total 7.5 g/dL (6.0-8.3); Sodium 139 mmol/L (136-145)
[2022-09-12 21:28] LABS: #Basophils 0.2 thou/uL (0.0-0.2); #Eosinphils 0.2 thou/uL (0.0-0.7); #Lymphocytes 10.6 thou/uL (1.20-3.40); #Monocytes 0.7 thou/uL (0.11-0.59); #Neutrophils 5.1 thou/uL (1.40-6.50); %Basophils 1.3 % (0.0-1.0); %Eosinophils 1.3 % (0.0-10.0); %Monocytes 4.1 % (0.0-10.0); %Neutrophils 30.2 % (42.0-75.0); Hypochromia SLIGHT = 6-15 cells (100X) (0-5/hpf); MDiff Complete? YES; Mean Corpuscular Hemoglobin 29.7 pg (27.0-31.0); Mean Corpuscular Volume 87.4 fl (78.0-98.0); Mean Platelet Volume 7.2 fL (7.4-10.4); Platelet Count 317 10x3/uL (130-400); RBC Distribution Width 15.1 % (11.5-14.5); Red Blood Cell (RBC) Count 3.69 mill/uL (4.20-5.40); Schistocytes SLIGHT = 2-5 cells (100X) (0-1/hpf); Target Cells SLIGHT = 2-5 cells (100X) (0-1/hpf); White Blood Cell (WBC) Count 16.8 10x3/uL (4.8-10.8)
[2022-09-13 14:59] LABS: Reticulocyte Count 4.7 % (0.5-1.5)
== END 2022-09-12 21:58 | disposition home or self-care (01) ==
LOC: NAV ERS 20:30
DX: D57.00 Hb-SS disease with crisis, unspecified (principal)
CPT/HCPCS: 80053; 84703; 85025; 85046; 96374; 96375; J1200; J2270; J2405; J7050

== ENCOUNTER 2022-09-15 15:36 | Emergency (ER) | payer BC, SELFPAY ==
[2022-09-15] MEDS ORDERED: Sodium Chloride 0.9% 1,000 ML ONE (16:24)
[2022-09-15] MEDS ORDERED: Morphine 4 MG/ML VIAL ONE (16:24)
[2022-09-15] MEDS ORDERED: Ondansetron PF 4 MG/2 ML Vial ONE (16:25)
[2022-09-15 16:35] LABS: #Basophils 0.1 thou/uL (0.0-0.2); #Eosinphils 0.2 thou/uL (0.0-0.7); #Lymphocytes 3.4 thou/uL (1.20-3.40); #Monocytes 0.8 thou/uL (0.11-0.59); #Neutrophils 5.1 thou/uL (1.40-6.50); %Eosinophils 1.8 % (0.0-10.0); %Lymphocytes 35.9 % (21.0-51.0); %Monocytes 8.5 % (0.0-10.0); %Neutrophils 52.7 % (42.0-75.0); Hemoglobin 11.7 g/dL (12.0-16.0); Mean Corpuscular HGB CONC 33.4 g/dL (32.0-36.0); Mean Corpuscular Hemoglobin 29.1 pg (27.0-31.0); Mean Corpuscular Volume 87.1 fl (78.0-98.0); Platelet Count 324 10x3/uL (130-400); RBC Distribution Width 15.2 % (11.5-14.5); Red Blood Cell (RBC) Count 4.02 mill/uL (4.20-5.40); White Blood Cell (WBC) Count 9.6 10x3/uL (4.8-10.8)
[2022-09-15 16:41] LABS: ALT (SGPT) 19 U/L (8-55); AST (SGOT) 18 U/L (5-34); Albumin 4.5 g/dL (3.5-5.0); Alkaline Phosphatase 51 U/L (40-110); Anion Gap 13 mmol/L (10-20); BUN (Urea Nitrogen) 8 mg/dL (7.0-18.7); Bilirubin, Total 1.8 mg/dL (0.2-1.2); Calc. Creatinine Clearance 0 mL/min (70-130); Calcium 9.5 mg/dL (7.8-10.44); Carbon Dioxide 23 mmol/L (22-29); Chloride 104 mmol/L (98-107); Estimated GFR 108; Globulin 3.3 g/dL (2.4-3.5); Glucose 90 mg/dL (70-105); Protein, Total 7.8 g/dL (6.0-8.3); Sodium 136 mmol/L (136-145)
[2022-09-15] MEDS ORDERED: Morphine 2 MG/ML VIAL ONE (17:47)
[2022-09-15 18:19] LABS: Reticulocyte Count 4.8 % (0.5-1.5)
== END 2022-09-15 18:00 | disposition home or self-care (01) ==
LOC: NAV ERS 15:36
DX: D57.00 Hb-SS disease with crisis, unspecified (principal)
CPT/HCPCS: 80053; 85025; 85046; 96361; 96374; 96375; 96376; J2270; J2272; J2405; J7050

== ENCOUNTER 2022-10-28 15:12 | Emergency (ER) | payer SELFPAY | END 2022-10-28 16:02 | disposition home or self-care (01) | LOC: NAV ERS 15:12 | DX: S61.412A Laceration without foreign body of left hand, initial encounter (principal); W26.0XXA Contact with knife, initial encounter; Y92.000 Kitchen of unspecified non-institutional (private) residence as the place of occurrence of the external cause; Z79.899 Other long term (current) drug therapy | CPT/HCPCS: 12001 ==

== ENCOUNTER 2022-11-10 19:17 | Emergency (ER) | payer SELFPAY ==
[2022-11-10] MEDS ORDERED: Sodium Chloride 0.9% 1,000 ML ONE (20:07)
[2022-11-10] MEDS ORDERED: Ondansetron PF 4 MG/2 ML Vial ONE (20:07)
[2022-11-10] MEDS ORDERED: Morphine 4 MG/ML VIAL ONE (20:07)
[2022-11-10 20:30] LABS: ALT (SGPT) 64 U/L (8-55); AST (SGOT) 55 U/L (5-34); Albumin 4.4 g/dL (3.5-5.0); Alkaline Phosphatase 57 U/L (40-110); Anion Gap 15 mmol/L (10-20); BUN (Urea Nitrogen) 11 mg/dL (7.0-18.7); Bilirubin, Total 1.2 mg/dL (0.2-1.2); Calc. Creatinine Clearance 0 mL/min (70-130); Calcium 8.8 mg/dL (7.8-10.44); Carbon Dioxide 20 mmol/L (22-29); Chloride 106 mmol/L (98-107); Estimated GFR 101; Globulin 3.2 g/dL (2.4-3.5); Glucose 88 mg/dL (70-105); Potassium 4.5 mmol/L (3.5-5.1); Protein, Total 7.6 g/dL (6.0-8.3); Sodium 136 mmol/L (136-145)
[2022-11-10 20:35] LABS: #Basophils 0.1 thou/uL (0.0-0.2); #Eosinphils 0.4 thou/uL (0.0-0.7); #Neutrophils 5.5 thou/uL (1.40-6.50); %Basophils 0.9 % (0.0-1.0); %Eosinophils 3.3 % (0.0-10.0); %Monocytes 8.6 % (0.0-10.0); %Neutrophils 49.1 % (42.0-75.0); Anisocytosis MODERATE=16-30 cells (100X) (0-5/hpf); Eosinophils 3 % (0-10); Hemoglobin 10.9 g/dL (12.0-16.0); Lymphocytes 36 % (21-51); MDiff Complete? YES; Mean Corpuscular HGB CONC 33.8 g/dL (32.0-36.0); Mean Corpuscular Hemoglobin 28.7 pg (27.0-31.0); Mean Corpuscular Volume 84.9 fl (78.0-98.0); Mean Platelet Volume 6.9 fL (7.4-10.4); Metamyelocyte 1 % (0-0); Monocytes 5 % (0-10); Neutrophil 55 % (42-75); Nucleated RBC 2 % (0); Platelet Count 299 10x3/uL (130-400); Platelet Morphology Comment Appears Adequate; RBC Distribution Width 14.7 % (11.5-14.5); Red Blood Cell (RBC) Count 3.79 mill/uL (4.20-5.40); Schistocytes SLIGHT = 2-5 cells (100X) (0-1/hpf); Sickle Cells SLIGHT = 1-5 cells (100X) (None Seen); Target Cells MARKED = >16 cells (100X) (0-1/hpf); Tear Drops SLIGHT = 2-5 cells (100X) (0-1/hpf); White Blood Cell (WBC) Count 11.1 10x3/uL (4.8-10.8)
[2022-11-10] MEDS ORDERED: Morphine 2 MG/ML VIAL ONE (21:08)
[2022-11-11 11:30] LABS: Reticulocyte Count 3.1 % (0.5-1.5)
== END 2022-11-10 22:13 | disposition home or self-care (01) ==
LOC: NAV ERS 19:17
DX: D57.00 Hb-SS disease with crisis, unspecified (principal)
CPT/HCPCS: 80053; 85025; 85046; 96361; 96374; 96375; 96376; J2270; J2272; J2405; J7050

== ENCOUNTER 2022-12-12 13:06 | Emergency (ER) | payer OTHER, SELFPAY ==
[2022-12-12] MEDS ORDERED: Ondansetron PF 4 MG/2 ML Vial ONE (13:34)
[2022-12-12] MEDS ORDERED: Sodium Chloride 0.9% 1,000 ML ONE (13:34)
[2022-12-12] MEDS ORDERED: Morphine 4 MG/ML VIAL ONE ×2 (13:34)
[2022-12-12 13:50] LABS: ALT (SGPT) 15 U/L (8-55); AST (SGOT) 15 U/L (5-34); Albumin 4.4 g/dL (3.5-5.0); Alkaline Phosphatase 47 U/L (40-110); Anion Gap 15 mmol/L (10-20); BUN (Urea Nitrogen) 8 mg/dL (7.0-18.7); Bilirubin, Total 1.3 mg/dL (0.2-1.2); Calc. Creatinine Clearance 0 mL/min (70-130); Calcium 9.2 mg/dL (7.8-10.44); Carbon Dioxide 22 mmol/L (22-29); Chloride 105 mmol/L (98-107); Estimated GFR 108; Glucose 95 mg/dL (70-105); MDiff Complete? YES; Manual Diff?? YES; Mean Corpuscular Hemoglobin 28.8 pg (27.0-31.0); Mean Corpuscular Volume 84.6 fl (78.0-98.0); Mean Platelet Volume 6.8 fL (7.4-10.4); Platelet Count 305 10x3/uL (130-400); Potassium 3.7 mmol/L (3.5-5.1); Protein, Total 7.4 g/dL (6.0-8.3); RBC Distribution Width 15.3 % (11.5-14.5); Sodium 138 mmol/L (136-145)
[2022-12-12 13:55] LABS: Eosinophils 1 % (0-10); Lymphocytes 31 % (21-51); Monocytes 2 % (0-10); Neutrophil 64 % (42-75); Polychromasia SLIGHT = 2-3 cells (100X) (0-2/hpf); Reactive Lymphocytes 2 % (0-10); Target Cells MODERATE= 6-15 cells (100X) (0-1/hpf)
[2022-12-12 13:58] LABS: Sickle Cells SLIGHT = 1-5 cells (100X) (None Seen); Toxic Granulation SLIGHT; Vacuoles SLIGHT
[2022-12-12 14:00] LABS: Platelet Morphology Comment Appears Adequate
[2022-12-12 14:01] LABS: White Blood Cell (WBC) Count 15.4 10x3/uL (4.8-10.8)
== END 2022-12-12 15:07 | disposition home or self-care (01) ==
LOC: NAV ERS 13:06
DX: D57.00 Hb-SS disease with crisis, unspecified (principal)
CPT/HCPCS: 36415; 80053; 85025; 96361; 96374; 96375; J2270; J2405; J7050

== ENCOUNTER 2022-12-18 08:07 | Emergency (ER) | payer SELFPAY ==
[2022-12-18 08:43] LABS: Bilirubin Negative (Negative); Blood, Urine Trace (Negative); Clarity Clear (Clear); Glucose, Urine (Dipstick) Negative (Negative); Ketone, Urine Negative (Negative); Leukocyte Small (Negative); Nitrite Negative (Negative); Protein, Urine (Dipstick) Negative (Neg-Trace)
[2022-12-18 08:48] LABS: RBC/HPF None Seen HPF (0-3)
[2022-12-18 08:49] LABS: Bacteria/HPF Rare-Few HPF (None Seen); Squamous Epithelial 0-3 HPF (0-3)
== END 2022-12-18 09:26 | disposition home or self-care (01) ==
LOC: NAV ERS 08:07
DX: N39.0 Urinary tract infection, site not specified (principal)
CPT/HCPCS: 81003; 81015; 87040; 99283

== ENCOUNTER 2022-12-21 09:15 | Emergency (ER) | payer SELFPAY ==
[2022-12-21] MEDS ORDERED: Sodium Chloride 0.9% 1,000 ML ONE (10:11)
[2022-12-21] MEDS ORDERED: Morphine 4 MG/ML VIAL ONE (10:11)
[2022-12-21] MEDS ORDERED: Ondansetron PF 4 MG/2 ML Vial ONE (10:35)
[2022-12-21 10:53] LABS: Hemoglobin 11.1 g/dL (12.0-16.0); Manual Diff?? NO; Mean Corpuscular HGB CONC 33.8 g/dL (32.0-36.0); Mean Corpuscular Hemoglobin 28.9 pg (27.0-31.0); Mean Corpuscular Volume 85.4 fl (78.0-98.0); Mean Platelet Volume 6.7 fL (7.4-10.4); Platelet Count 295 10x3/uL (130-400); RBC Distribution Width 14.1 % (11.5-14.5); Red Blood Cell (RBC) Count 3.85 mill/uL (4.20-5.40)
[2022-12-21 10:54] LABS: #Basophils 0.2 thou/uL (0.0-0.2); #Eosinphils 0.1 thou/uL (0.0-0.7); #Lymphocytes 5.1 thou/uL (1.20-3.40); #Monocytes 0.7 thou/uL (0.11-0.59); %Basophils 1.5 % (0.0-1.0); %Eosinophils 1.2 % (0.0-10.0); %Lymphocytes 42.1 % (21.0-51.0); %Monocytes 5.6 % (0.0-10.0); %Neutrophils 49.6 % (42.0-75.0)
[2022-12-21 11:02] LABS: Anion Gap 14 mmol/L (10-20); BUN (Urea Nitrogen) 8 mg/dL (7.0-18.7); Calc. Creatinine Clearance 0 mL/min (70-130); Carbon Dioxide 21 mmol/L (22-29); Chloride 106 mmol/L (98-107); Estimated GFR 117; Glucose 91 mg/dL (70-105); Potassium 4.2 mmol/L (3.5-5.1); Sodium 137 mmol/L (136-145)
[2022-12-21] MEDS ORDERED: Morphine 2 MG/ML VIAL ONE ×2 (11:22→12:07)
== END 2022-12-21 12:29 | disposition home or self-care (01) ==
LOC: NAV ERS 09:15
DX: D57.00 Hb-SS disease with crisis, unspecified (principal)
CPT/HCPCS: 36415; 80048; 85025; 96361; 96374; 96375; 96376; J2270; J2272; J2405; J7050

== ENCOUNTER 2023-01-02 20:47 | Emergency (ER) | payer OTHER ==
[2023-01-02] MEDS ORDERED: Ondansetron PF 4 MG/2 ML Vial ONE (21:30)
[2023-01-02] MEDS ORDERED: Sodium Chloride 0.9% 1,000 ML ONE (21:30)
[2023-01-02] MEDS ORDERED: Morphine 4 MG/ML VIAL ONE (21:30)
[2023-01-02 21:39] LABS: #Basophils 0.2 thou/uL (0.0-0.2); #Eosinphils 0.3 thou/uL (0.0-0.7); #Lymphocytes 10.2 thou/uL (1.20-3.40); #Monocytes 0.7 thou/uL (0.11-0.59); #Neutrophils 6.5 thou/uL (1.40-6.50); %Basophils 0.9 % (0.0-1.0); %Eosinophils 1.8 % (0.0-10.0); %Neutrophils 36.4 % (42.0-75.0); Hypochromia MODERATE=16-30 cells (100X) (0-5/hpf); MDiff Complete? YES; Mean Corpuscular HGB CONC 34.1 g/dL (32.0-36.0); Mean Corpuscular Hemoglobin 28.6 pg (27.0-31.0); Mean Corpuscular Volume 83.9 fl (78.0-98.0); Mean Platelet Volume 6.7 fL (7.4-10.4); Platelet Count 325 10x3/uL (130-400); RBC Distribution Width 14.4 % (11.5-14.5); Red Blood Cell (RBC) Count 3.86 mill/uL (4.20-5.40); Rouleaux Formation SLIGHT = 1-5 cells (100X) (None Seen); Stomatocytes SLIGHT = 2-5 cells (100X) (0-1/hpf); Target Cells MODERATE= 6-15 cells (100X) (0-1/hpf)
[2023-01-02 21:44] LABS: Anion Gap 14 mmol/L (10-20); BUN (Urea Nitrogen) 7 mg/dL (7.0-18.7); Calc. Creatinine Clearance 0 mL/min (70-130); Carbon Dioxide 21 mmol/L (22-29); Chloride 107 mmol/L (98-107); Potassium 3.9 mmol/L (3.5-5.1); Sodium 138 mmol/L (136-145)
[2023-01-02 21:45] LABS: ALT (SGPT) 19 U/L (8-55); AST (SGOT) 19 U/L (5-34); Albumin 4.6 g/dL (3.5-5.0); Alkaline Phosphatase 56 U/L (40-110); Bilirubin, Total 1.2 mg/dL (0.2-1.2); Calcium 9.2 mg/dL (7.8-10.44); Estimated GFR 95; Globulin 2.9 g/dL (2.4-3.5); Glucose 88 mg/dL (70-105); Protein, Total 7.5 g/dL (6.0-8.3)
[2023-01-02 23:30] LABS: Bilirubin Negative (Negative); Blood, Urine Small (Negative); Clarity Clear (Clear); Glucose, Urine (Dipstick) Negative (Negative); Ketone, Urine Negative (Negative); Leukocyte Negative (Negative); Nitrite Negative (Negative); Protein, Urine (Dipstick) Negative (Neg-Trace); Urobilinogen 0.2 mg/dL (Less than 2)
[2023-01-02 23:33] LABS: RBC/HPF None Seen HPF (0-3); Squamous Epithelial None Seen HPF (0-3); WBC/HPF None Seen HPF (0-3)
[2023-01-02 23:34] LABS: Bacteria/HPF None Seen HPF (None Seen)
[2023-01-03 16:24] LABS: Reticulocyte Count 2.6 % (0.5-1.5)
== END 2023-01-02 23:55 | disposition home or self-care (01) ==
LOC: NAV ERS 20:47
DX: D57.00 Hb-SS disease with crisis, unspecified (principal)
CPT/HCPCS: 80053; 81003; 81015; 85025; 85046; 96361; 96374; 96375; J2270; J2405; J7050

== ENCOUNTER 2023-02-02 15:19 | Emergency (ER) | payer OTHER ==
[2023-02-02] MEDS ORDERED: Sodium Chloride 0.9% 1,000 ML ONE (16:05)
[2023-02-02] MEDS ORDERED: Morphine 4 MG/ML VIAL ONE ×2 (16:05→18:01)
[2023-02-02] MEDS ORDERED: Promethazine HCl 25 MG/ML VIAL ONE (16:05)
[2023-02-02 16:47] LABS: ALT (SGPT) 14 U/L (8-55); AST (SGOT) 16 U/L (5-34); Albumin 4.3 g/dL (3.5-5.0); Alkaline Phosphatase 47 U/L (40-110); Anion Gap 14 mmol/L (10-20); BUN (Urea Nitrogen) 6 mg/dL (7.0-18.7); Bilirubin, Total 1.6 mg/dL (0.2-1.2); Calc. Creatinine Clearance 0 mL/min (70-130); Calcium 9.2 mg/dL (7.8-10.44); Carbon Dioxide 23 mmol/L (22-29); Chloride 107 mmol/L (98-107); Estimated GFR 109; Globulin 3.3 g/dL (2.4-3.5); Glucose 93 mg/dL (70-105); Potassium 3.6 mmol/L (3.5-5.1); Protein, Total 7.6 g/dL (6.0-8.3); Sodium 140 mmol/L (136-145)
[2023-02-02 16:53] LABS: #Basophils 0.1 thou/uL (0.0-0.2); #Eosinphils 0.2 thou/uL (0.0-0.7); #Monocytes 0.7 thou/uL (0.11-0.59); %Eosinophils 2.4 % (0.0-10.0); %Monocytes 7.4 % (0.0-10.0); %Neutrophils 53.3 % (42.0-75.0); Hemoglobin 10.5 g/dL (12.0-16.0); MDiff Complete? YES; Mean Corpuscular HGB CONC 33.7 g/dL (32.0-36.0); Mean Corpuscular Hemoglobin 28.3 pg (27.0-31.0); Mean Corpuscular Volume 83.9 fl (78.0-98.0); Platelet Count 313 10x3/uL (130-400); Platelet Morphology Comment Appears Adequate; RBC Distribution Width 14.7 % (11.5-14.5); Red Blood Cell (RBC) Count 3.71 mill/uL (4.20-5.40); Sickle Cells SLIGHT = 1-5 cells (100X) (None Seen); Target Cells MODERATE= 6-15 cells (100X) (0-1/hpf); White Blood Cell (WBC) Count 9.4 10x3/uL (4.8-10.8)
== END 2023-02-02 18:15 | disposition home or self-care (01) ==
LOC: NAV ERS 15:19
DX: M79.601 Pain in right arm (principal); D57.00 Hb-SS disease with crisis, unspecified
CPT/HCPCS: 80053; 85025; 85046; 96365; 96375; 96376; J2270; J2550; J7050

== ENCOUNTER 2023-03-27 22:16 | Emergency (ER) | payer OTHER ==
[2023-03-27] MEDS ORDERED: Morphine 4 MG/ML VIAL ONE ×2 (22:37→23:12)
[2023-03-27] MEDS ORDERED: Sodium Chloride 0.9% 1,000 ML ONE (22:37)
[2023-03-27 22:55] LABS: Hemoglobin 11.8 g/dL (12.0-16.0); Hypochromia SLIGHT = 6-15 cells (100X) (0-5/hpf); MDiff Complete? YES; Mean Corpuscular HGB CONC 35.1 g/dL (32.0-36.0); Mean Corpuscular Hemoglobin 29.3 pg (27.0-31.0); Mean Corpuscular Volume 83.5 fl (78.0-98.0); Mean Platelet Volume 7.2 fL (7.4-10.4); Platelet Count 326 10x3/uL (130-400); RBC Distribution Width 14.3 % (11.5-14.5); Red Blood Cell (RBC) Count 4.03 mill/uL (4.20-5.40); Target Cells MODERATE= 6-15 cells (100X) (0-1/hpf)
[2023-03-27 22:56] LABS: %Lymphocytes 59.1 % (21.0-51.0); %Monocytes 4.3 % (0.0-10.0); %Neutrophils 33.9 % (42.0-75.0); White Blood Cell (WBC) Count 16.7 10x3/uL (4.8-10.8)
[2023-03-27 22:57] LABS: #Basophils 0.2 thou/uL (0.0-0.2); #Eosinphils 0.2 thou/uL (0.0-0.7); #Lymphocytes 9.9 thou/uL (1.20-3.40); #Monocytes 0.7 thou/uL (0.11-0.59); #Neutrophils 5.7 thou/uL (1.40-6.50); %Basophils 1.2 % (0.0-1.0); %Eosinophils 1.5 % (0.0-10.0)
[2023-03-27 23:05] LABS: ALT (SGPT) 20 U/L (8-55); AST (SGOT) 21 U/L (5-34); Albumin 4.8 g/dL (3.5-5.0); Alkaline Phosphatase 63 U/L (40-110); Anion Gap 14 mmol/L (10-20); BUN (Urea Nitrogen) 8 mg/dL (7.0-18.7); Bilirubin, Total 1.6 mg/dL (0.2-1.2); Calc. Creatinine Clearance 0 mL/min (70-130); Calcium 9.5 mg/dL (7.8-10.44); Carbon Dioxide 23 mmol/L (22-29); Chloride 105 mmol/L (98-107); Estimated GFR 100; Globulin 3.5 g/dL (2.4-3.5); Glucose 92 mg/dL (70-105); Potassium 4.1 mmol/L (3.5-5.1); Protein, Total 8.3 g/dL (6.0-8.3); Sodium 138 mmol/L (136-145)
[2023-03-27] MEDS ORDERED: diphenhydrAMINE 50 MG/ML VIAL ONE (23:22)
== END 2023-03-27 23:53 | disposition home or self-care (01) ==
LOC: NAV ERS 22:16
DX: D57.00 Hb-SS disease with crisis, unspecified (principal)
CPT/HCPCS: 80053; 85025; 85046; 96361; 96374; 96375; J1200; J2270; J7050

== ENCOUNTER 2023-05-06 16:38 | Emergency (ER) | payer OTHER ==
[2023-05-06] MEDS ORDERED: diphenhydrAMINE 50 MG/ML VIAL ONE (17:46)
[2023-05-06] MEDS ORDERED: Morphine 4 MG/ML VIAL ONE (17:46)
[2023-05-06 18:02] LABS: ALT (SGPT) 28 U/L (8-55); AST (SGOT) 22 U/L (5-34); Albumin 4.3 g/dL (3.5-5.0); Alkaline Phosphatase 64 U/L (40-110); Anion Gap 13 mmol/L (10-20); BUN (Urea Nitrogen) 8 mg/dL (7.0-18.7); Bilirubin, Total 1.5 mg/dL (0.2-1.2); Calc. Creatinine Clearance 0 mL/min (70-130); Calcium 9.1 mg/dL (7.8-10.44); Carbon Dioxide 22 mmol/L (22-29); Chloride 107 mmol/L (98-107); Estimated GFR 98; Globulin 3.3 g/dL (2.4-3.5); Glucose 101 mg/dL (70-105); Protein, Total 7.6 g/dL (6.0-8.3); Sodium 138 mmol/L (136-145)
[2023-05-06 18:13] LABS: #Basophils 0.1 thou/uL (0.0-0.2); #Eosinphils 0.2 thou/uL (0.0-0.7); #Monocytes 0.8 thou/uL (0.11-0.59); #Neutrophils 4.8 thou/uL (1.40-6.50); %Basophils 1.4 % (0.0-1.0); %Eosinophils 2.1 % (0.0-10.0); %Lymphocytes 35.9 % (21.0-51.0); %Monocytes 8.2 % (0.0-10.0); %Neutrophils 52.4 % (42.0-75.0); Anisocytosis SLIGHT = 6-15 cells (100X) (0-5/hpf); Hematocrit 29.8 % (36.0-47.0); Hemoglobin 10.1 g/dL (12.0-16.0); MDiff Complete? YES; Mean Corpuscular HGB CONC 33.9 g/dL (32.0-36.0); Mean Corpuscular Hemoglobin 27.9 pg (27.0-31.0); Mean Corpuscular Volume 82.5 fl (78.0-98.0); Mean Platelet Volume 6.6 fL (7.4-10.4); Platelet Adequacy Comment Appears Adequate; Platelet Count 299 10x3/uL (130-400); RBC Distribution Width 14.3 % (11.5-14.5); Red Blood Cell (RBC) Count 3.61 mill/uL (4.20-5.40); Sickle Cells SLIGHT = 1-5 cells (100X) (None Seen); Spherocytes SLIGHT = 1-5 cells (100X) (None Seen); Target Cells MODERATE= 6-15 cells (100X) (0-1/hpf); White Blood Cell (WBC) Count 9.2 10x3/uL (4.8-10.8)
== END 2023-05-06 18:55 | disposition home or self-care (01) ==
LOC: NAV ERS 16:38
DX: D57.00 Hb-SS disease with crisis, unspecified (principal)
CPT/HCPCS: 80053; 85025; 85046; 96361; 96374; 96375; J1200; J2270

== ENCOUNTER 2023-05-31 20:15 | Emergency (ER) | payer OTHER ==
[2023-05-31] MEDS ORDERED: Sodium Chloride 0.9% 1,000 ML ONE (20:51)
[2023-05-31] MEDS ORDERED: Morphine 4 MG/ML VIAL ONE (20:51)
[2023-05-31] MEDS ORDERED: Promethazine HCl 25 MG/ML VIAL ONE (20:51)
[2023-05-31 21:22] LABS: White Blood Cell (WBC) Count 13.6 10x3/uL (4.8-10.8)
[2023-05-31 21:23] LABS: Eosinophils 16 % (0-10); Hematocrit 30.4 % (36.0-47.0); Hemoglobin 10.5 g/dL (12.0-16.0); Lymphocytes 38 % (21-51); MDiff Complete? YES; Manual Diff?? YES; Mean Corpuscular HGB CONC 34.6 g/dL (32.0-36.0); Mean Corpuscular Hemoglobin 28.4 pg (27.0-31.0); Mean Corpuscular Volume 82.2 fl (78.0-98.0); Mean Platelet Volume 7.2 fL (7.4-10.4); Neutrophil 30 % (42-75); Platelet Count 295 10x3/uL (130-400)
[2023-05-31 21:24] LABS: Anisocytosis SLIGHT = 6-15 cells (100X) (0-5/hpf); Microcytosis MODERATE=15-30 cells (100X) (0-5/hpf); Monocytes 16 % (0-10); Target Cells MARKED = >16 cells (100X) (0-1/hpf)
[2023-05-31 21:26] LABS: ALT (SGPT) 46 U/L (8-55); AST (SGOT) 30 U/L (5-34); Albumin 4.2 g/dL (3.5-5.0); Alkaline Phosphatase 67 U/L (40-110); Anion Gap 13 mmol/L (10-20); BUN (Urea Nitrogen) 10 mg/dL (7.0-18.7); Bilirubin, Total 1.6 mg/dL (0.2-1.2); Calc. Creatinine Clearance 0 mL/min (70-130); Carbon Dioxide 22 mmol/L (22-29); Chloride 106 mmol/L (98-107); Estimated GFR 108; Globulin 3.3 g/dL (2.4-3.5); Glucose 83 mg/dL (70-105); Potassium 3.7 mmol/L (3.5-5.1); Protein, Total 7.5 g/dL (6.0-8.3); Sodium 137 mmol/L (136-145)
== END 2023-05-31 23:12 | disposition home or self-care (01) ==
LOC: NAV ERS 20:15
DX: D57.00 Hb-SS disease with crisis, unspecified (principal); Z79.899 Other long term (current) drug therapy
CPT/HCPCS: 36415; 80053; 85025; 85046; 96361; 96374; 96375; J2270; J2550; J7050

== ENCOUNTER 2023-06-16 20:00 | Emergency (ER) | payer OTHER ==
[2023-06-16] MEDS ORDERED: Ondansetron PF 4 MG/2 ML Vial ONE (20:25)
[2023-06-16] MEDS ORDERED: Sodium Chloride 0.9% 1,000 ML ONE (20:25)
[2023-06-16] MEDS ORDERED: Morphine 4 MG/ML VIAL ONE (20:25)
== END 2023-06-16 22:00 | disposition home or self-care (01) ==
LOC: NAV ERS 20:00
DX: D57.00 Hb-SS disease with crisis, unspecified (principal)
CPT/HCPCS: 96361; 96374; 96375; J2270; J2405; J7050

== ENCOUNTER 2023-07-05 21:42 | Emergency (ER) | payer OTHER ==
[2023-07-05] MEDS ORDERED: Sodium Chloride 0.9% 1,000 ML ONE (22:15)
[2023-07-05] MEDS ORDERED: Ondansetron PF 4 MG/2 ML Vial ONE (22:16)
[2023-07-05] MEDS ORDERED: Morphine 4 MG/ML VIAL ONE (22:16)
[2023-07-05 22:22] LABS: #Basophils 0.1 thou/uL (0.0-0.2); #Eosinphils 0.2 thou/uL (0.0-0.7); #Lymphocytes 8.7 thou/uL (1.20-3.40); #Monocytes 0.8 thou/uL (0.11-0.59); #Neutrophils 6.2 thou/uL (1.40-6.50); %Basophils 0.9 % (0.0-1.0); %Eosinophils 1.5 % (0.0-10.0); %Lymphocytes 54.4 % (21.0-51.0); %Monocytes 4.7 % (0.0-10.0); %Neutrophils 38.5 % (42.0-75.0); Hematocrit 31.4 % (36.0-47.0); Hemoglobin 11.3 g/dL (12.0-16.0); MDiff Complete? YES; Mean Corpuscular HGB CONC 35.8 g/dL (32.0-36.0); Mean Corpuscular Hemoglobin 30.2 pg (27.0-31.0); Mean Corpuscular Volume 84.3 fl (78.0-98.0); Mean Platelet Volume 7.3 fL (7.4-10.4); Platelet Count 318 10x3/uL (130-400); RBC Distribution Width 14.7 % (11.5-14.5); Red Blood Cell (RBC) Count 3.73 mill/uL (4.20-5.40); Target Cells MODERATE= 6-15 cells (100X) (0-1/hpf)
[2023-07-05 22:32] LABS: ALT (SGPT) 17 U/L (8-55); AST (SGOT) 20 U/L (5-34); Albumin 4.4 g/dL (3.5-5.0); Alkaline Phosphatase 52 U/L (40-110); Anion Gap 15 mmol/L (10-20); BUN (Urea Nitrogen) 12 mg/dL (7.0-18.7); Bilirubin, Total 1.6 mg/dL (0.2-1.2); Calc. Creatinine Clearance 0 mL/min (70-130); Calcium 9.5 mg/dL (7.8-10.44); Carbon Dioxide 22 mmol/L (22-29); Chloride 106 mmol/L (98-107); Estimated GFR 88; Globulin 3.3 g/dL (2.4-3.5); Glucose 100 mg/dL (70-105); Potassium 3.7 mmol/L (3.5-5.1); Protein, Total 7.7 g/dL (6.0-8.3); Sodium 139 mmol/L (136-145)
== END 2023-07-05 23:50 | disposition home or self-care (01) ==
LOC: NAV ERS 21:42
DX: D57.00 Hb-SS disease with crisis, unspecified (principal)
CPT/HCPCS: 80053; 85025; 96361; 96374; 96375; J2270; J2405; J7050

== ENCOUNTER 2023-07-11 23:41 | Emergency (ER) | payer OTHER ==
[2023-07-12] MEDS ORDERED: Morphine 4 MG/ML VIAL ONE ×2 (00:02→01:39)
[2023-07-12] MEDS ORDERED: Sodium Chloride 0.9% 1,000 ML ONE (00:02)
[2023-07-12] MEDS ORDERED: Ondansetron PF 4 MG/2 ML Vial ONE (00:02)
[2023-07-12 00:15] LABS: Hematocrit 33.6 % (36.0-47.0); Hemoglobin 11.7 g/dL (12.0-16.0); Mean Corpuscular Volume 84.7 fl (78.0-98.0); Red Blood Cell (RBC) Count 3.97 mill/uL (4.20-5.40); White Blood Cell (WBC) Count 17.5 10x3/uL (4.8-10.8)
[2023-07-12 00:16] LABS: #Basophils 0.3 thou/uL (0.0-0.2); #Eosinphils 0.3 thou/uL (0.0-0.7); #Lymphocytes 7.8 thou/uL (1.20-3.40); #Monocytes 0.8 thou/uL (0.11-0.59); #Neutrophils 8.4 thou/uL (1.40-6.50); %Basophils 1.5 % (0.0-1.0); %Eosinophils 1.5 % (0.0-10.0); %Lymphocytes 44.4 % (21.0-51.0); %Monocytes 4.4 % (0.0-10.0); %Neutrophils 48.2 % (42.0-75.0); Manual Diff?? NO; Mean Corpuscular HGB CONC 34.8 g/dL (32.0-36.0); Mean Corpuscular Hemoglobin 29.5 pg (27.0-31.0); Mean Platelet Volume 7.7 fL (7.4-10.4); Platelet Count 337 10x3/uL (130-400); RBC Distribution Width 14.9 % (11.5-14.5)
[2023-07-12 00:22] LABS: ALT (SGPT) 152 U/L (8-55); Albumin 4.7 g/dL (3.5-5.0); Alkaline Phosphatase 70 U/L (40-110); Anion Gap 15 mmol/L (10-20); BUN (Urea Nitrogen) 9 mg/dL (7.0-18.7); Bilirubin, Total 1.9 mg/dL (0.2-1.2); Calc. Creatinine Clearance 0 mL/min (70-130); Calcium 9.6 mg/dL (7.8-10.44); Carbon Dioxide 20 mmol/L (22-29); Chloride 105 mmol/L (98-107); Estimated GFR 113; Globulin 3.9 g/dL (2.4-3.5); Glucose 90 mg/dL (70-105); Potassium 4.3 mmol/L (3.5-5.1); Protein, Total 8.6 g/dL (6.0-8.3); Sodium 136 mmol/L (136-145)
[2023-07-12 00:30] LABS: AST (SGOT) 93 U/L (5-34)
== END 2023-07-12 02:53 | disposition home or self-care (01) ==
LOC: NAV ERS 23:41
DX: D57.00 Hb-SS disease with crisis, unspecified (principal)
CPT/HCPCS: 80053; 85025; 96361; 96374; 96375; 96376; J2270; J2405; J7050

== ENCOUNTER 2023-07-23 20:50 | Emergency (ER) | payer OTHER ==
[2023-07-23] MEDS ORDERED: Morphine 4 MG/ML VIAL ONE (21:19)
[2023-07-23] MEDS ORDERED: Sodium Chloride 0.9% 1,000 ML ONE (21:20)
[2023-07-23] MEDS ORDERED: Ondansetron PF 4 MG/2 ML Vial ONE (21:20)
[2023-07-23 21:50] LABS: ALT (SGPT) 18 U/L (8-55); AST (SGOT) 16 U/L (5-34); Albumin 4.1 g/dL (3.5-5.0); Alkaline Phosphatase 53 U/L (40-110); Anion Gap 14 mmol/L (10-20); BUN (Urea Nitrogen) 7 mg/dL (7.0-18.7); Bilirubin, Total 1.3 mg/dL (0.2-1.2); Calc. Creatinine Clearance 0 mL/min (70-130); Calcium 8.7 mg/dL (7.8-10.44); Carbon Dioxide 21 mmol/L (22-29); Chloride 109 mmol/L (98-107); Estimated GFR 115; Globulin 3.1 g/dL (2.4-3.5); Glucose 90 mg/dL (70-105); Potassium 3.6 mmol/L (3.5-5.1); Protein, Total 7.2 g/dL (6.0-8.3); Sodium 140 mmol/L (136-145)
[2023-07-23 22:07] LABS: Anisocytosis SLIGHT = 6-15 cells (100X) (0-5/hpf); Eosinophils 1 % (0-10); Hematocrit 28.9 % (36.0-47.0); Lymphocytes 39 % (21-51); MDiff Complete? YES; Mean Corpuscular HGB CONC 34.4 g/dL (32.0-36.0); Mean Corpuscular Hemoglobin 29.3 pg (27.0-31.0); Mean Corpuscular Volume 85.2 fl (78.0-98.0); Mean Platelet Volume 6.7 fL (7.4-10.4); Monocytes 3 % (0-10); Neutrophil 56 % (42-75); Nucleated RBC (Manual Ct) 1 % (0); Platelet Count 363 10x3/uL (130-400); Poikilocytosis SLIGHT = 6-15 cells (100X) (0-5/hpf); Polychromasia SLIGHT = 2-3 cells (100X) (0-2/hpf); RBC Distribution Width 14.4 % (11.5-14.5); Sickle Cells SLIGHT = 1-5 cells (100X) (None Seen); Spherocytes SLIGHT = 1-5 cells (100X) (None Seen); Target Cells MODERATE= 6-15 cells (100X) (0-1/hpf)
[2023-07-23 22:08] LABS: White Blood Cell (WBC) Count 9.8 10x3/uL (4.8-10.8)
[2023-07-23] MEDS ORDERED: Morphine 2 MG/ML VIAL ONE (22:46)
== END 2023-07-23 23:37 | disposition home or self-care (01) ==
LOC: NAV ERS 20:50
DX: D57.00 Hb-SS disease with crisis, unspecified (principal)
CPT/HCPCS: 80053; 85025; 96361; 96374; 96375; 96376; J2270; J2272; J2405; J7050

== ENCOUNTER 2023-07-26 07:17 | Emergency (ER) | payer OTHER ==
[2023-07-26] MEDS ORDERED: Morphine 4 MG/ML VIAL ONE (08:02)
[2023-07-26] MEDS ORDERED: Morphine 2 MG/ML VIAL ONE ×2 (08:03→09:31)
[2023-07-26] MEDS ORDERED: Ondansetron PF 4 MG/2 ML Vial ONE (08:13)
[2023-07-26 08:35] LABS: ALT (SGPT) 21 U/L (8-55); AST (SGOT) 19 U/L (5-34); Albumin 3.9 g/dL (3.5-5.0); Alkaline Phosphatase 57 U/L (40-110); Anion Gap 12 mmol/L (10-20); BUN (Urea Nitrogen) 6 mg/dL (7.0-18.7); Bilirubin, Total 1.7 mg/dL (0.2-1.2); Calc. Creatinine Clearance 0 mL/min (70-130); Calcium 8.6 mg/dL (7.8-10.44); Carbon Dioxide 24 mmol/L (22-29); Chloride 106 mmol/L (98-107); Estimated GFR 113; Globulin 3.1 g/dL (2.4-3.5); Glucose 92 mg/dL (70-105); Potassium 3.7 mmol/L (3.5-5.1); Sodium 138 mmol/L (136-145)
[2023-07-26] MEDS ORDERED: Sodium Chloride 0.9% 1,000 ML ONE (08:45)
[2023-07-26 08:51] LABS: #Eosinphils 0.2 thou/uL (0.0-0.7); #Lymphocytes 14.3 thou/uL (1.20-3.40); #Monocytes 0.6 thou/uL (0.11-0.59); #Neutrophils 4.3 thou/uL (1.40-6.50); %Basophils 1.1 % (0.0-1.0); %Eosinophils 1.2 % (0.0-10.0); %Lymphocytes 71.6 % (21.0-51.0); %Monocytes 2.9 % (0.0-10.0); %Neutrophils 21.2 % (42.0-75.0); Hematocrit 27.7 % (36.0-47.0); Hemoglobin 9.7 g/dL (12.0-16.0); Mean Corpuscular Hemoglobin 29.3 pg (27.0-31.0); Mean Corpuscular Volume 83.8 fl (78.0-98.0); Mean Platelet Volume 7.5 fL (7.4-10.4); Platelet Count 364 10x3/uL (130-400); RBC Distribution Width 15.1 % (11.5-14.5)
== END 2023-07-26 10:54 | disposition home or self-care (01) ==
LOC: NAV ERS 07:17
DX: D57.00 Hb-SS disease with crisis, unspecified (principal)
CPT/HCPCS: 80053; 85025; 85046; 96361; 96374; 96375; 96376; J2270; J2272; J2405; J7050

== ENCOUNTER 2023-07-27 07:05 | Emergency (ER) | payer OTHER ==
[2023-07-27] MEDS ORDERED: Sodium Chloride 0.9% 1,000 ML ONE (08:18)
[2023-07-27] MEDS ORDERED: Ondansetron PF 4 MG/2 ML Vial ONE (08:18)
[2023-07-27] MEDS ORDERED: Morphine 4 MG/ML VIAL ONE (08:18)
[2023-07-27 08:32] LABS: #Basophils 0.3 thou/uL (0.0-0.2); #Eosinphils 0.2 thou/uL (0.0-0.7); #Lymphocytes 11.6 thou/uL (1.20-3.40); #Monocytes 0.9 thou/uL (0.11-0.59); #Neutrophils 6.8 thou/uL (1.40-6.50); %Basophils 1.6 % (0.0-1.0); %Eosinophils 1.1 % (0.0-10.0); %Lymphocytes 58.4 % (21.0-51.0); %Monocytes 4.5 % (0.0-10.0); %Neutrophils 34.4 % (42.0-75.0); Hemoglobin 10.8 g/dL (12.0-16.0); Mean Corpuscular HGB CONC 34.7 g/dL (32.0-36.0); Mean Corpuscular Hemoglobin 29.8 pg (27.0-31.0); Mean Corpuscular Volume 85.8 fl (78.0-98.0); Mean Platelet Volume 7.5 fL (7.4-10.4); Platelet Count 385 10x3/uL (130-400); RBC Distribution Width 15.7 % (11.5-14.5); Red Blood Cell (RBC) Count 3.61 mill/uL (4.20-5.40); White Blood Cell (WBC) Count 19.8 10x3/uL (4.8-10.8)
[2023-07-27 08:37] LABS: Bilirubin Negative (Negative); Blood, Urine Negative (Negative); Clarity Clear (Clear); Glucose, Urine (Dipstick) Negative (Negative); Ketone, Urine Negative (Negative); Leukocyte Negative (Negative); Nitrite Negative (Negative); Protein, Urine (Dipstick) Negative (Neg-Trace); Specific Gravity, Urine 1.015 (1.005-1.030); pH, Urine 7.5 (5.0-9.0)
[2023-07-27 08:53] LABS: ALT (SGPT) 24 U/L (8-55); AST (SGOT) 49 U/L (5-34); Albumin 4.2 g/dL (3.5-5.0); Alkaline Phosphatase 55 U/L (40-110); Anion Gap 15 mmol/L (10-20); BUN (Urea Nitrogen) 4 mg/dL (7.0-18.7); Calc. Creatinine Clearance 0 mL/min (70-130); Calcium 8.8 mg/dL (7.8-10.44); Carbon Dioxide 21 mmol/L (22-29); Chloride 105 mmol/L (98-107); Estimated GFR 104; Globulin 3.8 g/dL (2.4-3.5); Glucose 100 mg/dL (70-105); Potassium 5.3 mmol/L (3.5-5.1); Sodium 136 mmol/L (136-145)
[2023-07-27 09:00] LABS: Bacteria/HPF 1+ HPF (None Seen); RBC/HPF None Seen HPF (0-3)
[2023-07-27] MEDS ORDERED: Morphine 2 MG/ML VIAL ONE ×2 (09:20→10:34)
[2023-07-27] MEDS ORDERED: Ketorolac Tromethamine 30 MG/ML VIAL ONE (09:21)
== END 2023-07-27 10:47 | disposition home or self-care (01) ==
LOC: NAV ERS 07:05
DX: D57.219 Sickle-cell/Hb-C disease with crisis, unspecified (principal)
CPT/HCPCS: 80053; 81001; 85025; 85046; 96361; 96374; 96375; 96376; J1885; J2270; J2272; J2405; J7050

== ENCOUNTER 2023-08-15 23:25 | Emergency (ER) | payer OTHER ==
[2023-08-16] LABS: #Basophils 0.2 thou/uL (0.0-0.2); #Eosinphils 0.3 thou/uL (0.0-0.7); #Lymphocytes 9.9 thou/uL (1.20-3.40); #Monocytes 0.8 thou/uL (0.11-0.59); #Neutrophils 5.8 thou/uL (1.40-6.50); %Basophils 0.9 % (0.0-1.0); %Eosinophils 1.9 % (0.0-10.0); %Lymphocytes 58.2 % (21.0-51.0); Hematocrit 30.8 % (36.0-47.0); Hypochromia SLIGHT = 6-15 cells (100X) (0-5/hpf); MDiff Complete? YES; Mean Corpuscular HGB CONC 35.7 g/dL (32.0-36.0); Mean Corpuscular Hemoglobin 29.9 pg (27.0-31.0); Mean Corpuscular Volume 83.6 fl (78.0-98.0); Mean Platelet Volume 6.9 fL (7.4-10.4); Platelet Count 357 10x3/uL (130-400); RBC Distribution Width 14.4 % (11.5-14.5); Red Blood Cell (RBC) Count 3.68 mill/uL (4.20-5.40); Target Cells SLIGHT = 2-5 cells (100X) (0-1/hpf)
[2023-08-16 00:01] LABS: White Blood Cell (WBC) Count 16.9 10x3/uL (4.8-10.8)
[2023-08-16] MEDS ORDERED: Morphine 4 MG/ML VIAL ONE (00:01)
[2023-08-16] MEDS ORDERED: Ondansetron PF 4 MG/2 ML Vial ONE (00:01)
[2023-08-16] MEDS ORDERED: Sodium Chloride 0.9% 1,000 ML ONE (00:02)
[2023-08-16 00:10] LABS: ALT (SGPT) 17 U/L (8-55); AST (SGOT) 16 U/L (5-34); Albumin 4.3 g/dL (3.5-5.0); Alkaline Phosphatase 52 U/L (40-110); Anion Gap 13 mmol/L (10-20); BUN (Urea Nitrogen) 9 mg/dL (7.0-18.7); Bilirubin, Total 1.2 mg/dL (0.2-1.2); Calc. Creatinine Clearance 0 mL/min (70-130); Carbon Dioxide 24 mmol/L (22-29); Chloride 104 mmol/L (98-107); Estimated GFR 113; Globulin 3.4 g/dL (2.4-3.5); Glucose 85 mg/dL (70-105); Potassium 3.7 mmol/L (3.5-5.1); Protein, Total 7.7 g/dL (6.0-8.3); Sodium 137 mmol/L (136-145)
== END 2023-08-16 01:39 | disposition home or self-care (01) ==
LOC: NAV ERS 23:25
DX: D57.219 Sickle-cell/Hb-C disease with crisis, unspecified (principal); M54.50 Low back pain, unspecified
CPT/HCPCS: 80053; 85025; 85046; 94760; 96361; 96374; 96375; J2270; J2405; J7050

== ENCOUNTER 2023-09-11 10:14 | Emergency (ER) | payer OTHER ==
[2023-09-11 10:40] LABS: Bilirubin Negative (Negative); Blood, Urine Trace (Negative); Glucose, Urine (Dipstick) Negative (Negative); Ketone, Urine Negative (Negative); Leukocyte Moderate (Negative); Nitrite Negative (Negative); Protein, Urine (Dipstick) Negative (Neg-Trace); Specific Gravity, Urine 1.015 (1.005-1.030); Urobilinogen 0.2 mg/dL (Less than 2)
[2023-09-11 10:48] LABS: Clarity Hazy (Clear)
[2023-09-11 10:49] LABS: Pregnancy Test - Urine (BHCG) Negative (Negative); Pregu Control Background? CLEAR/WHITE (CLR/WHITE); Pregu Control Bar Appear? YES (CONTROL BAR); Specific Gravity 1.015 (1.002-1.036)
[2023-09-11 10:52] LABS: CAUTI Indications for Culture Dysuria,urgency,freq; RBC/HPF 0-3 HPF (0-3); Renal Epithelial 0-3 HPF (None Seen); Squamous Epithelial 0-3 HPF (0-3)
[2023-09-11 10:53] LABS: Urine Culture Reflex Yes Yes
[2023-09-11] MEDS ORDERED: Cephalexin 250 MG CAP ONE (11:23)
== END 2023-09-11 11:28 | disposition home or self-care (01) ==
LOC: NAV ERS 10:14
DX: N30.00 Acute cystitis without hematuria (principal)
CPT/HCPCS: 81001; 81025; 87077; 87086; 99283

== ENCOUNTER 2023-10-03 21:16 | Emergency (ER) | payer OTHER ==
[2023-10-03] MEDS ORDERED: Morphine 4 MG/ML VIAL ONE ×2 (21:55→23:21)
[2023-10-03] MEDS ORDERED: Sodium Chloride 0.9% 1,000 ML ONE (21:55)
[2023-10-03 22:05] LABS: #Neutrophils 4.5 thou/uL (1.40-6.50); %Basophils 1.5 % (0.0-1.0); %Eosinophils 1.7 % (0.0-10.0); %Lymphocytes 69.3 % (21.0-51.0); %Monocytes 3.7 % (0.0-10.0); %Neutrophils 23.8 % (42.0-75.0); Hematocrit 28.3 % (36.0-47.0); Hemoglobin 9.9 g/dL (12.0-16.0); Manual Diff?? NO; Mean Corpuscular HGB CONC 34.9 g/dL (32.0-36.0); Mean Corpuscular Hemoglobin 29.2 pg (27.0-31.0); Mean Corpuscular Volume 83.8 fl (78.0-98.0); Mean Platelet Volume 6.9 fL (7.4-10.4); Platelet Count 337 10x3/uL (130-400); RBC Distribution Width 15.1 % (11.5-14.5); Red Blood Cell (RBC) Count 3.37 mill/uL (4.20-5.40); White Blood Cell (WBC) Count 18.8 10x3/uL (4.8-10.8)
[2023-10-03 22:06] LABS: #Basophils 0.3 thou/uL (0.0-0.2); #Eosinphils 0.3 thou/uL (0.0-0.7); #Monocytes 0.7 thou/uL (0.11-0.59)
[2023-10-03 22:17] LABS: Anion Gap 15 mmol/L (10-20); BUN (Urea Nitrogen) 9 mg/dL (7.0-18.7); Calc. Creatinine Clearance 0 mL/min (70-130); Calcium 8.4 mg/dL (7.8-10.44); Carbon Dioxide 21 mmol/L (22-29); Chloride 107 mmol/L (98-107); Estimated GFR 102; Glucose 93 mg/dL (70-105); Potassium 3.6 mmol/L (3.5-5.1); Sodium 139 mmol/L (136-145)
== END 2023-10-03 23:30 | disposition home or self-care (01) ==
LOC: NAV ERS 21:16
DX: D57.1 Sickle-cell disease without crisis (principal)
CPT/HCPCS: 80048; 85025; 94760; 96374; 96376; J2270; J7050

== ENCOUNTER 2023-10-04 15:00 | Emergency (ER) | payer OTHER ==
[2023-10-04] MEDS ORDERED: Morphine 4 MG/ML VIAL ONE ×2 (15:28→18:04)
[2023-10-04] MEDS ORDERED: Ondansetron PF 4 MG/2 ML Vial ONE ×2 (15:28→18:04)
[2023-10-04] MEDS ORDERED: Sodium Chloride 0.9% 1,000 ML ONE (15:29)
[2023-10-04 15:55] LABS: Anisocytosis MODERATE=16-30 cells (100X) (0-5/hpf); Hematocrit 30.3 % (36.0-47.0); Hemoglobin 10.5 g/dL (12.0-16.0); Hypochromia MODERATE=16-30 cells (100X) (0-5/hpf); Lymphocytes 24 % (21-51); MDiff Complete? YES; Mean Corpuscular HGB CONC 34.7 g/dL (32.0-36.0); Mean Corpuscular Hemoglobin 29.1 pg (27.0-31.0); Mean Corpuscular Volume 83.7 fl (78.0-98.0); Mean Platelet Volume 7.3 fL (7.4-10.4); Microcytosis SLIGHT = 6-15 cells (100X) (0-5/hpf); Monocytes 5 % (0-10); Neutrophil 70 % (42-75); Nucleated RBC (Manual Ct) 7 % (0); Platelet Adequacy Comment Appears Adequate; Platelet Count 322 10x3/uL (130-400); Poikilocytosis SLIGHT = 6-15 cells (100X) (0-5/hpf); Polychromasia MODERATE = 3-4 cells (100X) (0-2/hpf); RBC Distribution Width 16.6 % (11.5-14.5); Red Blood Cell (RBC) Count 3.62 mill/uL (4.20-5.40); Sickle Cells SLIGHT = 1-5 cells (100X) (None Seen); Spherocytes SLIGHT = 1-5 cells (100X) (None Seen); Target Cells SLIGHT = 2-5 cells (100X) (0-1/hpf); Tear Drops SLIGHT = 2-5 cells (100X) (0-1/hpf); White Blood Cell (WBC) Count 12.2 10x3/uL (4.8-10.8)
[2023-10-04 16:12] LABS: ALT (SGPT) 45 U/L (8-55); AST (SGOT) 34 U/L (5-34); Alkaline Phosphatase 70 U/L (40-110); Anion Gap 13 mmol/L (10-20); BUN (Urea Nitrogen) 8 mg/dL (7.0-18.7); Bilirubin, Total 2.6 mg/dL (0.2-1.2); Calc. Creatinine Clearance 0 mL/min (70-130); Calcium 8.4 mg/dL (7.8-10.44); Carbon Dioxide 20 mmol/L (22-29); Chloride 109 mmol/L (98-107); Estimated GFR 118; Glucose 97 mg/dL (70-105); Potassium 4.2 mmol/L (3.5-5.1); Sodium 138 mmol/L (136-145)
[2023-10-04 16:26] LABS: Lipase Less than 4 U/L (8-78)
[2023-10-04 17:42] LABS: Bilirubin Negative (Negative); Blood, Urine Trace (Negative); Glucose, Urine (Dipstick) Negative (Negative); Ketone, Urine Trace mg/dL (Negative); Leukocyte Negative (Negative); Nitrite Negative (Negative); Protein, Urine (Dipstick) 100 mg/dL (Neg-Trace); Specific Gravity, Urine 1.025 (1.005-1.030)
[2023-10-04 17:49] LABS: CAUTI Indications for Culture Pelvic or flank pain; Clarity Hazy (Clear); RBC/HPF 0-3 HPF (0-3); WBC/HPF 0-3 HPF (0-3)
[2023-10-04 17:51] LABS: Urine Culture Reflex No No
== END 2023-10-04 20:38 | disposition home or self-care (01) ==
LOC: NAV ERS 15:00
DX: R11.2 Nausea with vomiting, unspecified (principal); D57.1 Sickle-cell disease without crisis; Z79.899 Other long term (current) drug therapy
CPT/HCPCS: 80053; 81001; 83690; 85025; 96361; 96374; 96375; 96376; J2270; J2405; J7050

== ENCOUNTER 2023-10-05 22:36 | Emergency (ER) | payer OTHER ==
[2023-10-05] MEDS ORDERED: Promethazine HCl 25 MG/ML VIAL ONE (23:30)
[2023-10-05] MEDS ORDERED: Morphine 4 MG/ML VIAL ONE (23:30)
[2023-10-05] MEDS ORDERED: Sodium Chloride 0.9% 1,000 ML ONE (23:32)
[2023-10-05 23:41] LABS: Anisocytosis SLIGHT = 6-15 cells (100X) (0-5/hpf); Hematocrit 25.5 % (36.0-47.0); Hemoglobin 9.1 g/dL (12.0-16.0); MDiff Complete? YES; Mean Corpuscular HGB CONC 35.6 g/dL (32.0-36.0); Mean Corpuscular Hemoglobin 29.4 pg (27.0-31.0); Mean Corpuscular Volume 82.5 fl (78.0-98.0); Mean Platelet Volume 6.9 fL (7.4-10.4); Platelet Count 299 10x3/uL (130-400); Polychromasia SLIGHT = 2-3 cells (100X) (0-2/hpf); RBC Distribution Width 16.4 % (11.5-14.5); Red Blood Cell (RBC) Count 3.09 mill/uL (4.20-5.40); Sickle Cells SLIGHT = 1-5 cells (100X) (None Seen); Target Cells MODERATE= 6-15 cells (100X) (0-1/hpf)
[2023-10-05 23:42] LABS: White Blood Cell (WBC) Count 31.1 10x3/uL (4.8-10.8)
[2023-10-05 23:43] LABS: #Lymphocytes 20.4 thou/uL (1.20-3.40); #Neutrophils 9.1 thou/uL (1.40-6.50)
[2023-10-05 23:44] LABS: #Basophils 0.4 thou/uL (0.0-0.2); #Eosinphils 0.3 thou/uL (0.0-0.7); #Monocytes 0.9 thou/uL (0.11-0.59)
[2023-10-05 23:48] LABS: Anion Gap 14 mmol/L (10-20); BUN (Urea Nitrogen) 7 mg/dL (7.0-18.7); Calc. Creatinine Clearance 0 mL/min (70-130); Calcium 8.4 mg/dL (7.8-10.44); Carbon Dioxide 21 mmol/L (22-29); Chloride 105 mmol/L (98-107); Estimated GFR 117; Glucose 87 mg/dL (70-105); Potassium 3.4 mmol/L (3.5-5.1); Sodium 137 mmol/L (136-145)
[2023-10-06] MEDS ORDERED: Morphine 4 MG/ML VIAL ONE (01:24)
== END 2023-10-06 01:50 | disposition home or self-care (01) ==
LOC: NAV ERS 22:36
DX: D57.00 Hb-SS disease with crisis, unspecified (principal)
CPT/HCPCS: 80048; 85025; 85046; 96374; 96375; 96376; J2270; J2550; J7050

== ENCOUNTER 2023-11-16 11:57 | Emergency (ER) | payer OTHER ==
[2023-11-16 12:33] LABS: Clarity Hazy (Clear)
[2023-11-16 12:34] LABS: Bacteria/HPF 1+ HPF (None Seen); Bilirubin Negative (Negative); Blood, Urine Negative (Negative); CAUTI Indications for Culture Pelvic or flank pain; Glucose, Urine (Dipstick) Negative (Negative); Ketone, Urine Negative (Negative); Leukocyte Negative (Negative); Nitrite Negative (Negative); Protein, Urine (Dipstick) Negative (Neg-Trace); Renal Epithelial 0-3 HPF (None Seen); Specific Gravity, Urine 1.015 (1.005-1.030); Squamous Epithelial 0-3 HPF (0-3); Transitional Epithelial 0-3 HPF (None Seen); Urine Culture Reflex No No; WBC/HPF 0-3 HPF (0-3)
[2023-11-16] MEDS ORDERED: Morphine 4 MG/ML VIAL ONE ×2 (12:41→14:15)
[2023-11-16 13:14] LABS: ALT (SGPT) 21 U/L (8-55); AST (SGOT) 17 U/L (5-34); Albumin 4.3 g/dL (3.5-5.0); Alkaline Phosphatase 66 U/L (40-110); Anion Gap 12 mmol/L (10-20); BUN (Urea Nitrogen) 7 mg/dL (7.0-18.7); Bilirubin, Total 1.6 mg/dL (0.2-1.2); Calc. Creatinine Clearance 0 mL/min (70-130); Calcium 9.1 mg/dL (7.8-10.44); Carbon Dioxide 21 mmol/L (22-29); Chloride 107 mmol/L (98-107); Estimated GFR 114; Globulin 3.7 g/dL (2.4-3.5); Glucose 87 mg/dL (70-105); Potassium 4.2 mmol/L (3.5-5.1); Sodium 136 mmol/L (136-145)
[2023-11-16 13:24] LABS: #Basophils 0.1 thou/uL (0.0-0.2); #Eosinphils 0.2 thou/uL (0.0-0.7); #Monocytes 0.8 thou/uL (0.11-0.59); #Neutrophils 5.1 thou/uL (1.40-6.50); %Basophils 1.4 % (0.0-1.0); %Monocytes 7.9 % (0.0-10.0); %Neutrophils 52.8 % (42.0-75.0); Anisocytosis MODERATE=16-30 cells (100X) (0-5/hpf); Hematocrit 32.6 % (36.0-47.0); Hemoglobin 11.3 g/dL (12.0-16.0); MDiff Complete? YES; Mean Corpuscular HGB CONC 34.8 g/dL (32.0-36.0); Mean Corpuscular Hemoglobin 28.9 pg (27.0-31.0); Mean Platelet Volume 6.8 fL (7.4-10.4); Platelet Count 370 10x3/uL (130-400); RBC Distribution Width 14.5 % (11.5-14.5); Red Blood Cell (RBC) Count 3.92 mill/uL (4.20-5.40); Sickle Cells SLIGHT = 1-5 cells (100X) (None Seen); Spherocytes SLIGHT = 1-5 cells (100X) (None Seen); Target Cells MODERATE= 6-15 cells (100X) (0-1/hpf); White Blood Cell (WBC) Count 9.7 10x3/uL (4.8-10.8)
== END 2023-11-16 14:25 | disposition home or self-care (01) ==
LOC: NAV ERS 11:57
DX: D57.00 Hb-SS disease with crisis, unspecified (principal); R30.0 Dysuria; E86.1 Hypovolemia
CPT/HCPCS: 80053; 81001; 85025; 96374; 96376; J2270

== ENCOUNTER 2024-01-26 14:42 | Emergency (ER) | payer BC ==
[2024-01-26] MEDS ORDERED: Morphine 4 MG/ML VIAL ONE (15:13)
[2024-01-26] MEDS ORDERED: Promethazine HCl 25 MG/ML VIAL ONE (15:13)
[2024-01-26 15:38] LABS: ALT (SGPT) 33 U/L (8-55); AST (SGOT) 25 U/L (5-34); Albumin 4.4 g/dL (3.5-5.0); Alkaline Phosphatase 64 U/L (40-110); Anion Gap 15 mmol/L (10-20); BUN (Urea Nitrogen) 8 mg/dL (7.0-18.7); Bilirubin, Total 1.3 mg/dL (0.2-1.2); Calc. Creatinine Clearance 0 mL/min (70-130); Calcium 9.1 mg/dL (7.8-10.44); Carbon Dioxide 21 mmol/L (22-29); Chloride 105 mmol/L (98-107); Estimated GFR 104; Globulin 3.2 g/dL (2.4-3.5); Glucose 98 mg/dL (70-105); Potassium 4.3 mmol/L (3.5-5.1); Protein, Total 7.6 g/dL (6.0-8.3); Sodium 137 mmol/L (136-145)
[2024-01-26 15:52] LABS: Anisocytosis SLIGHT = 6-15 cells (100X) (0-5/hpf); Band 1 % (5-11); Eosinophils 2 % (0-10); Hematocrit 30.7 % (36.0-47.0); Lymphocytes 33 % (21-51); MDiff Complete? YES; Mean Corpuscular HGB CONC 32.7 g/dL (32.0-36.0); Mean Corpuscular Volume 82.5 fl (78.0-98.0); Mean Platelet Volume 6.9 fL (7.4-10.4); Monocytes 7 % (0-10); Neutrophil 57 % (42-75); Nucleated RBC (Manual Ct) 6 % (0); Platelet Count 332 10x3/uL (130-400); RBC Distribution Width 14.8 % (11.5-14.5); Red Blood Cell (RBC) Count 3.72 mill/uL (4.20-5.40); Sickle Cells SLIGHT = 1-5 cells (100X) (None Seen); Target Cells MODERATE= 6-15 cells (100X) (0-1/hpf)
[2024-01-26] MEDS ORDERED: Morphine 2 MG/ML VIAL ONE (16:24)
[2024-01-26] MEDS ORDERED: fentaNYL 50 mcg/mL 1 mL Vial ONE (18:36)
[2024-01-26 19:05] LABS: Bilirubin Negative (Negative); Blood, Urine Negative (Negative); Clarity Clear (Clear); Glucose, Urine (Dipstick) Negative (Negative); Ketone, Urine Negative (Negative); Leukocyte Negative (Negative); Nitrite Negative (Negative); Protein, Urine (Dipstick) Negative (Neg-Trace); Urobilinogen 0.2 mg/dL (Less than 2)
[2024-01-26 19:13] LABS: CAUTI Indications for Culture Pelvic or flank pain
[2024-01-26 19:14] LABS: Urine Culture Reflex No No
[2024-01-26 19:19] LABS: WBC/HPF None Seen HPF (0-3)
== END 2024-01-26 20:13 | disposition home or self-care (01) ==
LOC: NAV ERS 14:42
DX: D57.00 Hb-SS disease with crisis, unspecified (principal)
CPT/HCPCS: 80053; 81001; 85025; 85046; 96361; 96374; 96375; 96376; J2270; J2272; J2550; J3010

== ENCOUNTER 2024-01-27 20:53 | Emergency (ER) | payer BC ==
[2024-01-27] MEDS ORDERED: Sodium Chloride 0.9% 1,000 ML ONE (21:28)
[2024-01-27] MEDS ORDERED: Ondansetron PF 4 MG/2 ML Vial ONE (21:28)
[2024-01-27] MEDS ORDERED: Morphine 4 MG/ML VIAL ONE (21:28)
[2024-01-27 21:42] LABS: #Basophils 0.3 thou/uL (0.0-0.2); #Eosinphils 0.2 thou/uL (0.0-0.7); #Lymphocytes 13.9 thou/uL (1.20-3.40); #Monocytes 0.8 thou/uL (0.11-0.59); #Neutrophils 7.2 thou/uL (1.40-6.50); %Basophils 1.3 % (0.0-1.0); %Lymphocytes 62.1 % (21.0-51.0); %Monocytes 3.5 % (0.0-10.0); %Neutrophils 32.1 % (42.0-75.0); Hematocrit 31.3 % (36.0-47.0); Hemoglobin 10.2 g/dL (12.0-16.0); Hypochromia MODERATE=16-30 cells (100X) (0-5/hpf); MDiff Complete? YES; Mean Corpuscular HGB CONC 32.6 g/dL (32.0-36.0); Mean Corpuscular Hemoglobin 27.1 pg (27.0-31.0); Mean Corpuscular Volume 83.1 fl (78.0-98.0); Mean Platelet Volume 6.4 fL (7.4-10.4); Platelet Count 341 10x3/uL (130-400); RBC Distribution Width 15.2 % (11.5-14.5); Red Blood Cell (RBC) Count 3.77 mill/uL (4.20-5.40); Rouleaux Formation SLIGHT = 1-5 cells (100X) (None Seen); Target Cells SLIGHT = 2-5 cells (100X) (0-1/hpf)
[2024-01-27 21:43] LABS: White Blood Cell (WBC) Count 22.4 10x3/uL (4.8-10.8)
[2024-01-27 21:45] LABS: ALT (SGPT) 24 U/L (8-55); AST (SGOT) 17 U/L (5-34); Albumin 4.2 g/dL (3.5-5.0); Alkaline Phosphatase 60 U/L (40-110); Anion Gap 14 mmol/L (10-20); BUN (Urea Nitrogen) 7 mg/dL (7.0-18.7); Bilirubin, Total 1.8 mg/dL (0.2-1.2); Calc. Creatinine Clearance 0 mL/min (70-130); Calcium 9.1 mg/dL (7.8-10.44); Carbon Dioxide 22 mmol/L (22-29); Chloride 105 mmol/L (98-107); Estimated GFR 102; Globulin 3.3 g/dL (2.4-3.5); Glucose 101 mg/dL (70-105); Potassium 3.7 mmol/L (3.5-5.1); Protein, Total 7.5 g/dL (6.0-8.3); Sodium 137 mmol/L (136-145)
[2024-01-27] MEDS ORDERED: Morphine 2 MG/ML VIAL ONE (22:49)
== END 2024-01-27 23:42 | disposition home or self-care (01) ==
LOC: NAV ERS 20:53
DX: D57.00 Hb-SS disease with crisis, unspecified (principal)
CPT/HCPCS: 96374; 96375; 96376; J2270; J2272; J2405; J7050

== ENCOUNTER 2024-04-15 01:15 | Emergency (ER) | payer BC, OTHER ==
[2024-04-15] MEDS ORDERED: Acetaminophen 500 MG TAB ONE (01:47)
[2024-04-15 01:58] LABS: Bilirubin Negative (Negative); Blood, Urine Negative (Negative); Clarity Clear (Clear); Glucose, Urine (Dipstick) Negative (Negative); Ketone, Urine Negative (Negative); Leukocyte Negative (Negative); Nitrite Negative (Negative); Protein, Urine (Dipstick) Negative (Neg-Trace); Urine Culture Reflex No No; pH, Urine 6.5 (5.0-9.0)
[2024-04-15 02:03] LABS: Bacteria/HPF Rare-Few HPF (None Seen); CAUTI Indications for Culture Dysuria,urgency,freq; RBC/HPF None Seen HPF (0-3); Squamous Epithelial 0-3 HPF (0-3); WBC/HPF 0-3 HPF (0-3)
== END 2024-04-15 02:13 | disposition home or self-care (01) ==
LOC: NAV ERS 01:15
DX: J01.10 Acute frontal sinusitis, unspecified (principal); J33.9 Nasal polyp, unspecified
CPT/HCPCS: 81001; 99283

== ENCOUNTER 2024-05-20 19:55 | Emergency (ER) | payer BC ==
[2024-05-20] MEDS ORDERED: Morphine 4 MG/ML VIAL ONE (20:19)
[2024-05-20] MEDS ORDERED: Promethazine HCl 25 MG/ML VIAL ONE (20:19)
[2024-05-20] MEDS ORDERED: Sodium Chloride 0.9% 1,000 ML ONE (20:19)
[2024-05-20 20:51] LABS: #Basophils 0.1 thou/uL (0.0-0.2); #Eosinphils 0.4 thou/uL (0.0-0.7); #Lymphocytes 3.8 thou/uL (1.20-3.40); #Monocytes 0.7 thou/uL (0.11-0.59); #Neutrophils 6.2 thou/uL (1.40-6.50); %Basophils 0.8 % (0.0-1.0); %Eosinophils 3.3 % (0.0-10.0); %Lymphocytes 33.9 % (21.0-51.0); %Monocytes 6.1 % (0.0-10.0); %Neutrophils 55.8 % (42.0-75.0); Hematocrit 31.8 % (36.0-47.0); Hemoglobin 11.1 g/dL (12.0-16.0); Mean Corpuscular HGB CONC 34.7 g/dL (32.0-36.0); Mean Corpuscular Hemoglobin 28.2 pg (27.0-31.0); Mean Corpuscular Volume 81.1 fl (78.0-98.0); Platelet Count 293 10x3/uL (130-400); RBC Distribution Width 13.8 % (11.5-14.5); Red Blood Cell (RBC) Count 3.93 mill/uL (4.20-5.40); White Blood Cell (WBC) Count 11.1 10x3/uL (4.8-10.8)
[2024-05-20 20:55] LABS: ALT (SGPT) 27 U/L (8-55); AST (SGOT) 33 U/L (5-34); Albumin 4.2 g/dL (3.5-5.0); Alkaline Phosphatase 58 U/L (40-110); Anion Gap 16 mmol/L (10-20); BUN (Urea Nitrogen) 10 mg/dL (7.0-18.7); Bilirubin, Total 1.3 mg/dL (0.2-1.2); Calc. Creatinine Clearance 0 mL/min (70-130); Calcium 9.3 mg/dL (7.8-10.44); Carbon Dioxide 19 mmol/L (22-29); Chloride 106 mmol/L (98-107); Estimated GFR 105; Globulin 3.9 g/dL (2.4-3.5); Glucose 95 mg/dL (70-105); Potassium 4.3 mmol/L (3.5-5.1); Protein, Total 8.1 g/dL (6.0-8.3); Sodium 137 mmol/L (136-145)
== END 2024-05-20 21:43 | disposition home or self-care (01) ==
LOC: NAV ERS 19:55
DX: D57.00 Hb-SS disease with crisis, unspecified (principal)
CPT/HCPCS: 80053; 85025; 85046; 96361; 96365; 96375; J2272; J2550; J7030

== ENCOUNTER 2024-05-26 07:12 | Emergency (ER) | payer BC ==
[2024-05-26 08:02] LABS: Hematocrit 31.3 % (36.0-47.0); Hemoglobin 10.5 g/dL (12.0-16.0); Mean Corpuscular HGB CONC 33.6 g/dL (32.0-36.0); Mean Corpuscular Hemoglobin 27.3 pg (27.0-31.0); Mean Corpuscular Volume 81.1 fl (78.0-98.0); Platelet Count 321 10x3/uL (130-400); Prothrombin Time 13.5 sec (12.0-14.7); RBC Distribution Width 13.8 % (11.5-14.5); Red Blood Cell (RBC) Count 3.86 mill/uL (4.20-5.40)
[2024-05-26 08:03] LABS: PTT 32.3 sec (22.9-36.1)
[2024-05-26 08:04] LABS: White Blood Cell (WBC) Count 15.2 10x3/uL (4.8-10.8)
[2024-05-26 08:05] LABS: MDiff Complete? YES; Manual Diff?? YES
[2024-05-26 08:11] LABS: ALT (SGPT) 25 U/L (8-55); AST (SGOT) 21 U/L (5-34); Albumin 4.1 g/dL (3.5-5.0); Alkaline Phosphatase 59 U/L (40-110); Anion Gap 13 mmol/L (10-20); BUN (Urea Nitrogen) 9 mg/dL (7.0-18.7); Bilirubin, Total 1.4 mg/dL (0.2-1.2); Calc. Creatinine Clearance 0 mL/min (70-130); Calcium 9.1 mg/dL (7.8-10.44); Carbon Dioxide 22 mmol/L (22-29); Chloride 105 mmol/L (98-107); Estimated GFR 112; Globulin 3.3 g/dL (2.4-3.5); Glucose 98 mg/dL (70-105); Lipase 5 U/L (8-78); Protein, Total 7.4 g/dL (6.0-8.3); Sodium 136 mmol/L (136-145)
[2024-05-26 08:13] LABS: Band 3 % (5-11); Eosinophils 6 % (0-10); Lymphocytes 16 % (21-51); Monocytes 2 % (0-10); Neutrophil 70 % (42-75); Nucleated RBC (Manual Ct) 9 % (0); Reactive Lymphocytes 3 % (0-10)
[2024-05-26 08:14] LABS: Anisocytosis SLIGHT = 6-15 cells (100X) (0-5/hpf); Target Cells MODERATE= 6-15 cells (100X) (0-1/hpf)
[2024-05-26 08:15] LABS: Elliptocytes SLIGHT = 2-5 cells (100X) (0-1/hpf); Microcytosis SLIGHT = 6-15 cells (100X) (0-5/hpf); Poikilocytosis SLIGHT = 6-15 cells (100X) (0-5/hpf); Spherocytes SLIGHT = 1-5 cells (100X) (None Seen)
[2024-05-26 08:16] LABS: Large Platelets SLIGHT (None Seen); Platelet Adequacy Comment Appears Adequate; Toxic Granulation SLIGHT; Vacuoles SLIGHT
[2024-05-26] MEDS ORDERED: Ketorolac Tromethamine 30 MG (1 mL) VIAL ONE (08:48)
[2024-05-26] MEDS ORDERED: Morphine 4 MG/ML VIAL ONE (08:48)
[2024-05-26] MEDS ORDERED: Sodium Chloride 0.9% 1,000 ML ONE (08:49)
[2024-05-26] MEDS ORDERED: Morphine 2 MG/ML VIAL ONE (09:40)
== END 2024-05-26 09:49 | disposition home or self-care (01) ==
LOC: NAV ERS 07:12
DX: D57.00 Hb-SS disease with crisis, unspecified (principal)
CPT/HCPCS: 80053; 83615; 83690; 85025; 85046; 85610; 85730; 96361; 96374; 96375; 96376; J1885; J2272; J7030

== ENCOUNTER 2024-06-21 21:18 | Emergency (ER) | payer BC ==
[2024-06-21] MEDS ORDERED: Morphine 4 MG/ML VIAL ONE (21:53)
[2024-06-21] MEDS ORDERED: Ondansetron PF 4 MG/2 ML Vial ONE (21:53)
[2024-06-21] MEDS ORDERED: Sodium Chloride 0.9% 1,000 ML ONE (21:53)
[2024-06-21 22:33] LABS: ALT (SGPT) 21 U/L (8-55); AST (SGOT) 19 U/L (5-34); Albumin 3.8 g/dL (3.5-5.0); Alkaline Phosphatase 52 U/L (40-110); Anion Gap 14 mmol/L (10-20); BUN (Urea Nitrogen) 7 mg/dL (7.0-18.7); Bilirubin, Total 0.9 mg/dL (0.2-1.2); Calc. Creatinine Clearance 0 mL/min (70-130); Calcium 8.7 mg/dL (7.8-10.44); Carbon Dioxide 21 mmol/L (22-29); Chloride 108 mmol/L (98-107); Estimated GFR 107; Globulin 2.8 g/dL (2.4-3.5); Glucose 86 mg/dL (70-105); Potassium 3.5 mmol/L (3.5-5.1); Protein, Total 6.6 g/dL (6.0-8.3); Sodium 139 mmol/L (136-145)
[2024-06-21 22:38] LABS: Anisocytosis SLIGHT = 6-15 cells (100X) (0-5/hpf); Eosinophils 2 % (0-10); Hemoglobin 9.8 g/dL (12.0-16.0); Lymphocytes 31 % (21-51); MDiff Complete? YES; Mean Corpuscular HGB CONC 33.8 g/dL (32.0-36.0); Mean Corpuscular Hemoglobin 28.1 pg (27.0-31.0); Mean Corpuscular Volume 83.3 fl (78.0-98.0); Mean Platelet Volume 6.9 fL (7.4-10.4); Microcytosis SLIGHT = 6-15 cells (100X) (0-5/hpf); Monocytes 7 % (0-10); Neutrophil 60 % (42-75); Platelet Adequacy Comment Appears Adequate; Platelet Count 327 10x3/uL (130-400); Poikilocytosis SLIGHT = 6-15 cells (100X) (0-5/hpf); RBC Distribution Width 14.6 % (11.5-14.5); Red Blood Cell (RBC) Count 3.48 mill/uL (4.20-5.40); Target Cells MODERATE= 6-15 cells (100X) (0-1/hpf)
[2024-06-21] MEDS ORDERED: Morphine 2 MG/ML VIAL ONE (22:44)
[2024-06-21 22:48] LABS: White Blood Cell (WBC) Count 21.3 10x3/uL (4.8-10.8)
[2024-06-21 22:49] LABS: #Eosinophils 0.4 thou/uL (0.0-0.7); #Lymphocytes 6.6 thou/uL (1.20-3.40); #Monocytes 1.5 thou/uL (0.11-0.59); #Neutrophils 12.8 thou/uL (1.40-6.50)
== END 2024-06-21 23:05 | disposition home or self-care (01) ==
LOC: NAV ERS 21:18
DX: D57.219 Sickle-cell/Hb-C disease with crisis, unspecified (principal)
CPT/HCPCS: 80053; 85025; 96361; 96374; 96375; 96376; J2272; J2405; J7030

== ENCOUNTER 2024-06-25 09:02 | Emergency (ER) | payer BC ==
[2024-06-25] MEDS ORDERED: diphenhydrAMINE 50 MG/ML VIAL ONE (10:18)
[2024-06-25] MEDS ORDERED: Sodium Chloride 0.9% 1,000 ML ONE (10:19)
[2024-06-25] MEDS ORDERED: Morphine 4 MG/ML VIAL ONE (10:19)
[2024-06-25 10:50] LABS: BHCG - Serum Negative (NEGATIVE); Pregs Control Bar Appear? YES (CONTROL BAR)
[2024-06-25 10:53] LABS: Hematocrit 33.3 % (36.0-47.0); Hemoglobin 11.2 g/dL (12.0-16.0); Mean Corpuscular HGB CONC 33.8 g/dL (32.0-36.0); Mean Corpuscular Hemoglobin 28.4 pg (27.0-31.0); Platelet Count 387 10x3/uL (130-400); RBC Distribution Width 14.8 % (11.5-14.5); Red Blood Cell (RBC) Count 3.96 mill/uL (4.20-5.40); White Blood Cell (WBC) Count 7.6 10x3/uL (4.8-10.8)
[2024-06-25 10:55] LABS: MDiff Complete? YES
[2024-06-25 10:58] LABS: ALT (SGPT) 26 U/L (8-55); AST (SGOT) 29 U/L (5-34); Albumin 4.1 g/dL (3.5-5.0); Alkaline Phosphatase 58 U/L (40-110); Anion Gap 14 mmol/L (10-20); BUN (Urea Nitrogen) 5 mg/dL (7.0-18.7); Calc. Creatinine Clearance 0 mL/min (70-130); Calcium 9.3 mg/dL (7.8-10.44); Carbon Dioxide 22 mmol/L (22-29); Chloride 106 mmol/L (98-107); Estimated GFR 112; Globulin 3.2 g/dL (2.4-3.5); Glucose 89 mg/dL (70-105); Potassium 4.3 mmol/L (3.5-5.1); Protein, Total 7.3 g/dL (6.0-8.3); Sodium 138 mmol/L (136-145)
[2024-06-25 11:02] LABS: Eosinophils 6 % (0-10); Lymphocytes 41 % (21-51); Monocytes 9 % (0-10); Neutrophil 43 % (42-75); Nucleated RBC (Manual Ct) 5 % (0); Reflex for Review?? YES
[2024-06-25 11:05] LABS: Anisocytosis SLIGHT = 6-15 cells (100X) (0-5/hpf); Poikilocytosis SLIGHT = 6-15 cells (100X) (0-5/hpf); Target Cells SLIGHT = 2-5 cells (100X) (0-1/hpf)
[2024-06-25 11:06] LABS: Sickle Cells SLIGHT = 1-5 cells (100X) (None Seen); Tear Drops SLIGHT = 2-5 cells (100X) (0-1/hpf)
[2024-06-25 11:07] LABS: Hypochromia SLIGHT = 6-15 cells (100X) (0-5/hpf); Platelet Adequacy Comment Appears Adequate; Smudge Cells SLIGHT; Toxic Granulation SLIGHT
== END 2024-06-25 12:40 | disposition home or self-care (01) ==
LOC: NAV ERS 09:02
DX: D57.219 Sickle-cell/Hb-C disease with crisis, unspecified (principal)
CPT/HCPCS: 80053; 84703; 85025; 85046; 85060; 96374; 96375; J1200; J2272; J7030

== ENCOUNTER 2024-06-26 16:44 | Emergency (ER) | payer BC ==
[2024-06-26] MEDS ORDERED: fentaNYL 50 mcg/mL 1 mL Vial ONE (17:32)
[2024-06-26] MEDS ORDERED: HYDROcodone/Acetaminophen 5/325 mg Tablet ONE (17:33)
[2024-06-26] MEDS ORDERED: Sodium Chloride 0.9% 1,000 ML ONE (17:33)
[2024-06-26 18:19] LABS: ALT (SGPT) 26 U/L (8-55); AST (SGOT) 23 U/L (5-34); Alkaline Phosphatase 55 U/L (40-110); Anion Gap 13 mmol/L (10-20); BUN (Urea Nitrogen) 7 mg/dL (7.0-18.7); Bilirubin, Total 1.2 mg/dL (0.2-1.2); Calc. Creatinine Clearance 0 mL/min (70-130); Calcium 9.4 mg/dL (7.8-10.44); Carbon Dioxide 23 mmol/L (22-29); Chloride 106 mmol/L (98-107); Estimated GFR 96; Globulin 3.1 g/dL (2.4-3.5); Glucose 87 mg/dL (70-105); Potassium 3.9 mmol/L (3.5-5.1); Protein, Total 7.1 g/dL (6.0-8.3); Sodium 138 mmol/L (136-145)
[2024-06-26 18:35] LABS: Pregnancy Test - Urine (BHCG) Negative (Negative); Pregu Control Background? CLEAR/WHITE (CLR/WHITE); Pregu Control Bar Appear? YES (CONTROL BAR); Specific Gravity 1.012 (1.002-1.036)
[2024-06-26] MEDS ORDERED: Ketorolac Tromethamine 30 MG (1 mL) VIAL ONE (18:38)
[2024-06-26 18:58] LABS: Hematocrit 30.3 % (36.0-47.0); Hemoglobin 10.4 g/dL (12.0-16.0); Mean Corpuscular HGB CONC 34.4 g/dL (32.0-36.0); Mean Corpuscular Hemoglobin 28.9 pg (27.0-31.0); Mean Corpuscular Volume 84.1 fl (78.0-98.0); Mean Platelet Volume 7.2 fL (7.4-10.4); Platelet Count 352 10x3/uL (130-400); RBC Distribution Width 14.8 % (11.5-14.5)
[2024-06-26 19:00] LABS: MDiff Complete? YES
[2024-06-26 19:01] LABS: White Blood Cell (WBC) Count 17.6 10x3/uL (4.8-10.8)
[2024-06-26 20:46] LABS: Eosinophils 3 % (0-10); Lymphocytes 49 % (21-51); Monocytes 5 % (0-10); Neutrophil 43 % (42-75); Nucleated RBC (Manual Ct) 3 % (0)
[2024-06-26 20:47] LABS: Anisocytosis MODERATE=16-30 cells (100X) (0-5/hpf); Hypochromia SLIGHT = 6-15 cells (100X) (0-5/hpf); Poikilocytosis SLIGHT = 6-15 cells (100X) (0-5/hpf); Sickle Cells SLIGHT = 1-5 cells (100X) (None Seen)
[2024-06-26 20:48] LABS: Target Cells SLIGHT = 2-5 cells (100X) (0-1/hpf)
[2024-06-26 20:50] LABS: Platelet Adequacy Comment Appears Adequate; Spherocytes SLIGHT = 1-5 cells (100X) (None Seen)
== END 2024-06-26 19:17 | disposition home or self-care (01) ==
LOC: NAV ERS 16:44
DX: M54.50 Low back pain, unspecified (principal); D57.1 Sickle-cell disease without crisis; D72.829 Elevated white blood cell count, unspecified
CPT/HCPCS: 80053; 81025; 85025; 85046; 96374; 96375; J1885; J3010; J7030

== ENCOUNTER 2024-07-08 11:07 | Emergency (ER) | payer BC | END 2024-07-08 12:24 | disposition home or self-care (01) | LOC: NAV ERS 11:07 | DX: J32.9 Chronic sinusitis, unspecified (principal); R04.2 Hemoptysis | CPT/HCPCS: 71046; 87428 ==

== ENCOUNTER 2024-07-20 07:08 | Emergency (ER) | payer BC ==
[2024-07-20] MEDS ORDERED: Ketorolac Tromethamine 30 MG (1 mL) VIAL ONE (07:55)
[2024-07-20] MEDS ORDERED: Morphine 4 MG/ML VIAL ONE (07:55)
[2024-07-20 08:01] LABS: BHCG - Serum Negative (NEGATIVE); Pregs Control Bar Appear? YES (CONTROL BAR)
[2024-07-20 08:06] LABS: Anion Gap 14 mmol/L (10-20); BUN (Urea Nitrogen) 9 mg/dL (7.0-18.7); Calc. Creatinine Clearance 0 mL/min (70-130); Calcium 9.1 mg/dL (7.8-10.44); Carbon Dioxide 22 mmol/L (22-29); Chloride 106 mmol/L (98-107); Estimated GFR 116; Glucose 94 mg/dL (70-105); Potassium 4.1 mmol/L (3.5-5.1); Sodium 138 mmol/L (136-145)
[2024-07-20 08:18] LABS: Hematocrit 30.9 % (36.0-47.0); Hemoglobin 10.7 g/dL (12.0-16.0); Mean Corpuscular Volume 81.8 fl (78.0-98.0); Red Blood Cell (RBC) Count 3.77 mill/uL (4.20-5.40)
[2024-07-20 08:19] LABS: Mean Corpuscular HGB CONC 34.6 g/dL (32.0-36.0); Mean Corpuscular Hemoglobin 28.3 pg (27.0-31.0); Mean Platelet Volume 6.8 fL (7.4-10.4); Platelet Count 394 10x3/uL (130-400); RBC Distribution Width 14.6 % (11.5-14.5)
[2024-07-20 08:22] LABS: Anisocytosis SLIGHT = 6-15 cells (100X) (0-5/hpf); Eosinophils 3 % (0-10); Hypochromia SLIGHT = 6-15 cells (100X) (0-5/hpf); Lymphocytes 59 % (21-51); MDiff Complete? YES; Monocytes 8 % (0-10); Neutrophil 30 % (42-75); Nucleated RBC (Manual Ct) 7 % (0); Poikilocytosis SLIGHT = 6-15 cells (100X) (0-5/hpf)
[2024-07-20 08:23] LABS: Ovalocytes SLIGHT = 2-5 cells (100X) (0-1/hpf); Platelet Adequacy Comment Appears Adequate; Rouleaux Formation SLIGHT = 1-5 cells (100X) (None Seen); Sickle Cells SLIGHT = 1-5 cells (100X) (None Seen); Target Cells MODERATE= 6-15 cells (100X) (0-1/hpf)
[2024-07-20 08:25] LABS: White Blood Cell (WBC) Count 15.5 10x3/uL (4.8-10.8)
== END 2024-07-20 08:50 | disposition home or self-care (01) ==
LOC: NAV ERS 07:08
DX: D57.00 Hb-SS disease with crisis, unspecified (principal)
CPT/HCPCS: 80048; 84703; 85025; 85046; 96374; 96375; J1885; J2272

== ENCOUNTER 2024-08-02 16:11 | Emergency (ER) | payer BC ==
[2024-08-02] MEDS ORDERED: Acetaminophen 500 MG TAB ONE (17:07)
[2024-08-02] MEDS ORDERED: Morphine 4 MG/ML VIAL ONE (17:07)
[2024-08-02] MEDS ORDERED: Lactated Ringer's 1,000 ML ONE (17:08)
[2024-08-02] MEDS ORDERED: Ketorolac Tromethamine 30 MG (1 mL) VIAL ONE (17:08)
[2024-08-02] MEDS ORDERED: Ondansetron PF 4 MG/2 ML Vial ONE (17:08)
[2024-08-02 17:39] LABS: BHCG - Serum Negative (NEGATIVE); Pregs Control Bar Appear? YES (CONTROL BAR)
[2024-08-02 17:40] LABS: ALT (SGPT) 35 U/L (8-55); AST (SGOT) 18 U/L (5-34); Albumin 4.1 g/dL (3.5-5.0); Alkaline Phosphatase 66 U/L (40-110); Anion Gap 13 mmol/L (10-20); BUN (Urea Nitrogen) 7 mg/dL (7.0-18.7); Bilirubin, Total 1.2 mg/dL (0.2-1.2); Calc. Creatinine Clearance 0 mL/min (70-130); Carbon Dioxide 24 mmol/L (22-29); Chloride 105 mmol/L (98-107); Estimated GFR 111; Globulin 3.3 g/dL (2.4-3.5); Glucose 87 mg/dL (70-105); Potassium 3.8 mmol/L (3.5-5.1); Protein, Total 7.4 g/dL (6.0-8.3); Sodium 138 mmol/L (136-145)
[2024-08-02 17:42] LABS: Bilirubin Negative (Negative); Blood, Urine Negative (Negative); Clarity Clear (Clear); Glucose, Urine (Dipstick) Negative (Negative); Ketone, Urine Negative (Negative); Leukocyte Negative (Negative); Nitrite Negative (Negative); Protein, Urine (Dipstick) Negative (Neg-Trace); pH, Urine 6.5 (5.0-9.0)
[2024-08-02 17:52] LABS: Bacteria/HPF 2+ HPF (None Seen); CAUTI Indications for Culture Pelvic or flank pain; RBC/HPF 0-3 HPF (0-3); Squamous Epithelial 0-3 HPF (0-3); WBC/HPF 0-3 HPF (0-3)
[2024-08-02 17:53] LABS: Urine Culture Reflex No No
[2024-08-02 18:12] LABS: Hematocrit 31.8 % (36.0-47.0); Hemoglobin 10.8 g/dL (12.0-16.0); Mean Corpuscular Hemoglobin 28.3 pg (27.0-31.0); Mean Corpuscular Volume 83.3 fl (78.0-98.0); Mean Platelet Volume 6.5 fL (7.4-10.4); Platelet Count 378 10x3/uL (130-400); RBC Distribution Width 14.2 % (11.5-14.5); Red Blood Cell (RBC) Count 3.82 mill/uL (4.20-5.40)
[2024-08-02] MEDS ORDERED: HYDROmorphone 0.5 MG/0.5 ML SYRINGE ONE (18:12)
[2024-08-02 18:15] LABS: White Blood Cell (WBC) Count 11.9 10x3/uL (4.8-10.8)
[2024-08-02 18:16] LABS: MDiff Complete? YES
[2024-08-03 02:55] LABS: Neutrophil 39 % (42-75)
[2024-08-03 02:56] LABS: Eosinophils 2 % (0-10); Lymphocytes 54 % (21-51); Monocytes 5 % (0-10); Nucleated RBC (Manual Ct) 4 % (0)
[2024-08-03 02:58] LABS: Anisocytosis SLIGHT = 6-15 cells (100X) (0-5/hpf); Hypochromia SLIGHT = 6-15 cells (100X) (0-5/hpf); Poikilocytosis SLIGHT = 6-15 cells (100X) (0-5/hpf); Target Cells MODERATE= 6-15 cells (100X) (0-1/hpf)
[2024-08-03 02:59] LABS: Sickle Cells SLIGHT = 1-5 cells (100X) (None Seen)
[2024-08-03 03:04] LABS: Platelet Adequacy Comment Appears Adequate
== END 2024-08-02 18:48 | disposition home or self-care (01) ==
LOC: NAV ERS 16:11
DX: D57.00 Hb-SS disease with crisis, unspecified (principal)
CPT/HCPCS: 80053; 81001; 84703; 85025; 85046; 93005; 96361; 96374; 96375; J1885; J2272; J2405; J7120

== ENCOUNTER 2024-08-04 22:56 | Emergency (ER) | payer BC ==
[2024-08-04] MEDS ORDERED: diphenhydrAMINE 50 MG/ML VIAL ONE (23:35)
[2024-08-04] MEDS ORDERED: Sodium Chloride 0.9% 1,000 ML ONE (23:35)
[2024-08-04] MEDS ORDERED: Morphine 4 MG/ML VIAL ONE (23:35)
[2024-08-05] MEDS ORDERED: Morphine 2 MG/ML VIAL ONE (00:55)
== END 2024-08-05 01:08 | disposition home or self-care (01) ==
LOC: NAV ERS 22:56
DX: D57.00 Hb-SS disease with crisis, unspecified (principal)
CPT/HCPCS: 96361; 96374; 96375; 96376; J1200; J2272; J7030

== ENCOUNTER 2024-08-22 21:20 | Emergency (ER) | payer BC ==
[2024-08-22] MEDS ORDERED: Morphine 4 MG/ML VIAL ONE (22:01)
[2024-08-22] MEDS ORDERED: Promethazine HCl 25 MG/ML VIAL ONE (22:01)
[2024-08-22] MEDS ORDERED: Sodium Chloride 0.9% 1,000 ML ONE (22:01)
[2024-08-22 22:15] LABS: Hematocrit 29.3 % (36.0-47.0); Hemoglobin 10.3 g/dL (12.0-16.0); Mean Corpuscular HGB CONC 35.1 g/dL (32.0-36.0); Mean Corpuscular Hemoglobin 28.4 pg (27.0-31.0); Mean Corpuscular Volume 80.9 fl (78.0-98.0); Mean Platelet Volume 6.8 fL (7.4-10.4); Platelet Count 399 10x3/uL (130-400); RBC Distribution Width 14.1 % (11.5-14.5); Red Blood Cell (RBC) Count 3.61 mill/uL (4.20-5.40); White Blood Cell (WBC) Count 14.8 10x3/uL (4.8-10.8)
[2024-08-22 22:21] LABS: ALT (SGPT) 21 U/L (8-55); AST (SGOT) 18 U/L (5-34); Alkaline Phosphatase 59 U/L (40-110); Anion Gap 11 mmol/L (10-20); BUN (Urea Nitrogen) 7 mg/dL (7.0-18.7); Bilirubin, Total 1.3 mg/dL (0.2-1.2); Calc. Creatinine Clearance 0 mL/min (70-130); Calcium 8.4 mg/dL (7.8-10.44); Carbon Dioxide 24 mmol/L (22-29); Chloride 106 mmol/L (98-107); Estimated GFR 99; Globulin 3.4 g/dL (2.4-3.5); Glucose 110 mg/dL (70-105); Potassium 3.6 mmol/L (3.5-5.1); Protein, Total 7.4 g/dL (6.0-8.3); Sodium 137 mmol/L (136-145)
[2024-08-22 22:30] LABS: Anisocytosis SLIGHT = 6-15 cells (100X) (0-5/hpf); Eosinophils 2 % (0-10); Hypochromia SLIGHT = 6-15 cells (100X) (0-5/hpf); Lymphocytes 49 % (21-51); MDiff Complete? YES; Monocytes 6 % (0-10); Neutrophil 43 % (42-75); Platelet Adequacy Comment Appears Adequate; Poikilocytosis SLIGHT = 6-15 cells (100X) (0-5/hpf); Sickle Cells SLIGHT = 1-5 cells (100X) (None Seen); Target Cells MODERATE= 6-15 cells (100X) (0-1/hpf); Toxic Granulation SLIGHT; Vacuoles SLIGHT
[2024-08-22 22:33] LABS: Nucleated RBC (Manual Ct) 3 % (0)
[2024-08-22] MEDS ORDERED: Morphine 2 MG/ML VIAL ONE (23:29)
== END 2024-08-22 23:45 | disposition home or self-care (01) ==
LOC: NAV ERS 21:20
DX: D57.00 Hb-SS disease with crisis, unspecified (principal)
CPT/HCPCS: 80053; 85025; 85046; 96365; 96375; 96376; J2272; J2550; J7030

== ENCOUNTER 2024-08-25 09:05 | Emergency (ER) | payer BC ==
[2024-08-25 09:36] LABS: White Blood Cell (WBC) Count 14.8 10x3/uL (4.8-10.8)
[2024-08-25 09:37] LABS: Hematocrit 33.2 % (36.0-47.0); Hemoglobin 11.2 g/dL (12.0-16.0); Manual Diff?? YES; Mean Corpuscular HGB CONC 33.7 g/dL (32.0-36.0); Mean Corpuscular Hemoglobin 27.8 pg (27.0-31.0); Mean Corpuscular Volume 82.4 fl (78.0-98.0); Mean Platelet Volume 6.6 fL (7.4-10.4); Platelet Count 407 10x3/uL (130-400); RBC Distribution Width 14.6 % (11.5-14.5); Red Blood Cell (RBC) Count 4.03 mill/uL (4.20-5.40)
[2024-08-25 09:51] LABS: MDiff Complete? YES
[2024-08-25 09:52] LABS: Eosinophils 4 % (0-10); Lymphocytes 51 % (21-51); Neutrophil 35 % (42-75)
[2024-08-25 09:53] LABS: ALT (SGPT) 20 U/L (8-55); AST (SGOT) 18 U/L (5-34); Albumin 4.3 g/dL (3.5-5.0); Alkaline Phosphatase 60 U/L (40-110); Anion Gap 14 mmol/L (10-20); BUN (Urea Nitrogen) 5 mg/dL (7.0-18.7); Band 1 % (5-11); Bilirubin, Total 1.6 mg/dL (0.2-1.2); Calc. Creatinine Clearance 0 mL/min (70-130); Calcium 9.1 mg/dL (7.8-10.44); Carbon Dioxide 23 mmol/L (22-29); Chloride 105 mmol/L (98-107); Estimated GFR 105; Globulin 3.7 g/dL (2.4-3.5); Glucose 99 mg/dL (70-105); Microcytosis SLIGHT = 6-15 cells (100X) (0-5/hpf); Monocytes 8 % (0-10); Nucleated RBC (Manual Ct) 2 % (0); Sickle Cells SLIGHT = 1-5 cells (100X) (None Seen); Sodium 138 mmol/L (136-145); Target Cells MARKED = >16 cells (100X) (0-1/hpf)
[2024-08-25 09:54] LABS: Platelet Adequacy Comment Platelets Normal
[2024-08-25 11:17] LABS: Bilirubin Negative (Negative); Blood, Urine Negative (Negative); Clarity Clear (Clear); Glucose, Urine (Dipstick) Negative (Negative); Ketone, Urine Negative (Negative); Leukocyte Negative (Negative); Nitrite Negative (Negative); Protein, Urine (Dipstick) Negative (Neg-Trace); Specific Gravity, Urine 1.015 (1.005-1.030); Urobilinogen 0.2 mg/dL (Less than 2); pH, Urine 8.5 (5.0-9.0)
[2024-08-25 11:20] LABS: CAUTI Indications for Culture Pelvic or flank pain; RBC/HPF None Seen HPF (0-3); Squamous Epithelial 0-3 HPF (0-3); WBC/HPF None Seen HPF (0-3)
[2024-08-25 11:21] LABS: Bacteria/HPF Rare-Few HPF (None Seen); Urine Culture Reflex No No
[2024-08-25] MEDS ORDERED: Morphine 4 MG/ML VIAL ONE (11:21)
[2024-08-25] MEDS ORDERED: Promethazine HCl 25 MG/ML VIAL ONE (11:21)
[2024-08-25] MEDS ORDERED: Sodium Chloride 0.9% 1,000 ML ONE (11:22)
[2024-08-25] MEDS ORDERED: Morphine 2 MG/ML VIAL ONE (13:51)
== END 2024-08-25 14:14 | disposition home or self-care (01) ==
LOC: NAV ERS 09:05
DX: D57.00 Hb-SS disease with crisis, unspecified (principal); D72.829 Elevated white blood cell count, unspecified
CPT/HCPCS: 36415; 80053; 81001; 85025; 85046; 96361; 96374; 96375; 96376; J2272; J2550; J7030

== ENCOUNTER 2024-09-09 15:29 | Emergency (ER) | payer BC ==
[2024-09-09] MEDS ORDERED: Sodium Chloride 0.9% 1,000 ML ONE (15:52)
[2024-09-09] MEDS ORDERED: diphenhydrAMINE 50 MG/ML VIAL ONE (15:52)
[2024-09-09] MEDS ORDERED: Morphine 4 MG/ML VIAL ONE ×2 (15:52→16:50)
[2024-09-09 16:12] LABS: BHCG - Serum Negative (NEGATIVE); Pregs Control Bar Appear? YES (CONTROL BAR)
[2024-09-09 16:21] LABS: ALT (SGPT) 41 U/L (8-55); AST (SGOT) 35 U/L (5-34); Albumin 4.2 g/dL (3.5-5.0); Alkaline Phosphatase 66 U/L (40-110); Anion Gap 14 mmol/L (10-20); BUN (Urea Nitrogen) 10 mg/dL (7.0-18.7); Bilirubin, Total 1.3 mg/dL (0.2-1.2); Calc. Creatinine Clearance 0 mL/min (70-130); Carbon Dioxide 21 mmol/L (22-29); Chloride 107 mmol/L (98-107); Estimated GFR 98; Globulin 3.5 g/dL (2.4-3.5); Glucose 106 mg/dL (70-105); Lipase 4 U/L (8-78); Protein, Total 7.7 g/dL (6.0-8.3); Sodium 138 mmol/L (136-145)
[2024-09-09 16:29] LABS: #Basophils 0.1 thou/uL (0.0-0.2); #Eosinophils 0.3 thou/uL (0.0-0.7); #Lymphocytes 3.5 thou/uL (1.20-3.40); #Monocytes 0.5 thou/uL (0.11-0.59); #Neutrophils 4.6 thou/uL (1.40-6.50); %Basophils 1.1 % (0.0-1.0); %Eosinophils 3.4 % (0.0-10.0); %Monocytes 5.2 % (0.0-10.0); %Neutrophils 51.3 % (42.0-75.0); Hemoglobin 10.5 g/dL (12.0-16.0); Mean Corpuscular HGB CONC 35.1 g/dL (32.0-36.0); Mean Corpuscular Hemoglobin 28.3 pg (27.0-31.0); Mean Corpuscular Volume 80.8 fl (78.0-98.0); Mean Platelet Volume 6.7 fL (7.4-10.4); Platelet Count 372 10x3/uL (130-400); RBC Distribution Width 15.5 % (11.5-14.5); Red Blood Cell (RBC) Count 3.71 mill/uL (4.20-5.40)
[2024-09-09 17:07] LABS: Bilirubin Negative (Negative); Blood, Urine Negative (Negative); Clarity Clear (Clear); Glucose, Urine (Dipstick) Negative (Negative); Ketone, Urine Negative (Negative); Leukocyte Negative (Negative); Nitrite Negative (Negative); Protein, Urine (Dipstick) Negative (Neg-Trace); Specific Gravity, Urine 1.015 (1.005-1.030)
[2024-09-09 17:21] LABS: CAUTI Indications for Culture Pelvic or flank pain; RBC/HPF 0-3 HPF (0-3); Squamous Epithelial 0-3 HPF (0-3); WBC/HPF None Seen HPF (0-3)
[2024-09-09 17:22] LABS: Urine Culture Reflex No No
== END 2024-09-09 17:25 | disposition home or self-care (01) ==
LOC: NAV ERS 15:29
DX: D57.219 Sickle-cell/Hb-C disease with crisis, unspecified (principal); Z79.899 Other long term (current) drug therapy
CPT/HCPCS: 80053; 81001; 83690; 84703; 85025; 85046; 96374; 96375; 96376; J1200; J2272; J7030

== ENCOUNTER 2024-09-21 15:18 | Emergency (ER) | payer BC ==
[2024-09-21] MEDS ORDERED: Morphine 4 MG/ML VIAL ONE ×2 (15:51→17:19)
[2024-09-21] MEDS ORDERED: Sodium Chloride 0.9% 1,000 ML ONE (15:51)
[2024-09-21] MEDS ORDERED: Ondansetron PF 4 MG/2 ML Vial ONE (15:51)
[2024-09-21 15:53] LABS: Bilirubin Negative (Negative); Blood, Urine Negative (Negative); Clarity Clear (Clear); Glucose, Urine (Dipstick) Negative (Negative); Ketone, Urine Negative (Negative); Leukocyte Negative (Negative); Nitrite Negative (Negative); Protein, Urine (Dipstick) Negative (Neg-Trace); Specific Gravity, Urine 1.015 (1.005-1.030)
[2024-09-21 16:06] LABS: CAUTI Indications for Culture Pelvic or flank pain; RBC/HPF 0-3 HPF (0-3); Squamous Epithelial 0-3 HPF (0-3); WBC/HPF None Seen HPF (0-3)
[2024-09-21 16:07] LABS: Urine Culture Reflex No No
[2024-09-21 16:14] LABS: #Basophils 0.1 thou/uL (0.0-0.2); #Eosinophils 0.2 thou/uL (0.0-0.7); #Lymphocytes 2.7 thou/uL (1.20-3.40); #Monocytes 0.6 thou/uL (0.11-0.59); %Basophils 1.2 % (0.0-1.0); %Eosinophils 2.3 % (0.0-10.0); %Lymphocytes 31.6 % (21.0-51.0); %Monocytes 6.6 % (0.0-10.0); %Neutrophils 58.2 % (42.0-75.0); Hematocrit 31.8 % (36.0-47.0); Hemoglobin 10.6 g/dL (12.0-16.0); Mean Corpuscular HGB CONC 33.5 g/dL (32.0-36.0); Mean Corpuscular Hemoglobin 28.7 pg (27.0-31.0); Mean Corpuscular Volume 85.7 fl (78.0-98.0); Mean Platelet Volume 6.7 fL (7.4-10.4); Platelet Count 433 10x3/uL (130-400); RBC Distribution Width 17.2 % (11.5-14.5); Red Blood Cell (RBC) Count 3.71 mill/uL (4.20-5.40); White Blood Cell (WBC) Count 8.6 10x3/uL (4.8-10.8)
[2024-09-21 16:19] LABS: ALT (SGPT) 27 U/L (8-55); AST (SGOT) 20 U/L (5-34); Albumin 4.3 g/dL (3.5-5.0); Alkaline Phosphatase 63 U/L (40-110); Anion Gap 13 mmol/L (10-20); BUN (Urea Nitrogen) 9 mg/dL (7.0-18.7); Bilirubin, Total 1.7 mg/dL (0.2-1.2); Calc. Creatinine Clearance 0 mL/min (70-130); Calcium 9.6 mg/dL (7.8-10.44); Carbon Dioxide 23 mmol/L (22-29); Chloride 106 mmol/L (98-107); Estimated GFR 116; Globulin 3.4 g/dL (2.4-3.5); Glucose 89 mg/dL (70-105); Potassium 4.1 mmol/L (3.5-5.1); Protein, Total 7.7 g/dL (6.0-8.3); Sodium 138 mmol/L (136-145)
== END 2024-09-21 17:40 | disposition home or self-care (01) ==
LOC: NAV ERS 15:18
DX: D57.219 Sickle-cell/Hb-C disease with crisis, unspecified (principal)
CPT/HCPCS: 80053; 81001; 85025; 96361; 96374; 96375; 96376; J2272; J2405; J7030

== ENCOUNTER 2024-10-10 07:17 | Emergency (ER) | payer BC, OTHER, SELFPAY ==
[2024-10-10] MEDS ORDERED: Morphine 4 MG/ML VIAL ONE (08:31)
[2024-10-10] MEDS ORDERED: Sodium Chloride 0.9% 1,000 ML ONE (08:31)
[2024-10-10] MEDS ORDERED: Promethazine HCl 25 MG/ML VIAL ONE (08:31)
[2024-10-10 09:01] LABS: Hematocrit 30.3 % (36.0-47.0); Hemoglobin 10.3 g/dL (12.0-16.0); Mean Corpuscular HGB CONC 33.8 g/dL (32.0-36.0); Mean Corpuscular Hemoglobin 29.2 pg (27.0-31.0); Mean Corpuscular Volume 86.2 fl (78.0-98.0); Mean Platelet Volume 6.9 fL (7.4-10.4); Platelet Count 324 10x3/uL (130-400); RBC Distribution Width 14.2 % (11.5-14.5); Red Blood Cell (RBC) Count 3.52 mill/uL (4.20-5.40); White Blood Cell (WBC) Count 12.2 10x3/uL (4.8-10.8)
[2024-10-10 09:02] LABS: Eosinophils 3 % (0-10); Lymphocytes 25 % (21-51); MDiff Complete? YES; Manual Diff?? YES; Monocytes 12 % (0-10); Neutrophil 58 % (42-75)
[2024-10-10 09:03] LABS: ALT (SGPT) 18 U/L (Less than 34); Albumin 4.2 g/dL (3.1-4.5); Alkaline Phosphatase 54 U/L (40-110); Anion Gap 10 mmol/L (10-20); Anisocytosis SLIGHT = 6-15 cells (100X) (0-5/hpf); BUN (Urea Nitrogen) 9 mg/dL (7.0-18.7); Band 1 % (5-11); Bilirubin, Total 1.3 mg/dL (0.3-1.2); Calc. Creatinine Clearance 0 mL/min (70-130); Calcium 9.4 mg/dL (7.8-10.44); Carbon Dioxide 24 mmol/L (22-29); Chloride 108 mmol/L (98-107); Estimated GFR 110; Globulin 3.1 g/dL (2.4-3.5); Glucose 95 mg/dL (70-105); Nucleated RBC (Manual Ct) 2 % (0); Platelet Adequacy Comment Platelets Normal; Poikilocytosis SLIGHT = 6-15 cells (100X) (0-5/hpf); Potassium 4.2 mmol/L (3.5-5.1); Protein, Total 7.3 g/dL (6.0-8.3); Sodium 138 mmol/L (136-145); Target Cells MODERATE= 6-15 cells (100X) (0-1/hpf)
[2024-10-10 09:09] LABS: AST (SGOT) 25 U/L (11-34)
== END 2024-10-10 10:00 | disposition home or self-care (01) ==
LOC: NAV ERS 07:17
DX: E87.1 Hypo-osmolality and hyponatremia (principal)
CPT/HCPCS: 36415; 80053; 85025; 85046; 96374; 96375; J2270; J2550; J7030

== ENCOUNTER 2024-10-10 20:59 | Emergency (ER) | payer OTHER, SELFPAY ==
[2024-10-10] MEDS ORDERED: Morphine 4 MG/ML VIAL ONE (22:22)
[2024-10-10] MEDS ORDERED: Promethazine HCl 25 MG/ML VIAL ONE (22:22)
[2024-10-10] MEDS ORDERED: Sodium Chloride 0.9% 1,000 ML ONE (22:22)
[2024-10-10 22:31] LABS: #Basophils 0.2 thou/uL (0.0-0.2); #Eosinophils 0.3 thou/uL (0.0-0.7); #Lymphocytes 6.1 thou/uL (1.20-3.40); #Monocytes 0.7 thou/uL (0.11-0.59); #Neutrophils 6.8 thou/uL (1.40-6.50); %Basophils 1.2 % (0.0-1.0); %Eosinophils 2.3 % (0.0-10.0); %Lymphocytes 43.3 % (21.0-51.0); %Neutrophils 48.2 % (42.0-75.0); Hematocrit 31.7 % (36.0-47.0); Hemoglobin 10.5 g/dL (12.0-16.0); Mean Corpuscular HGB CONC 33.1 g/dL (32.0-36.0); Mean Corpuscular Volume 87.8 fl (78.0-98.0); Mean Platelet Volume 6.6 fL (7.4-10.4); Platelet Count 344 10x3/uL (130-400); RBC Distribution Width 14.7 % (11.5-14.5); Red Blood Cell (RBC) Count 3.61 mill/uL (4.20-5.40)
[2024-10-10 23:00] LABS: ALT (SGPT) 18 U/L (Less than 34); AST (SGOT) 35 U/L (11-34); Alkaline Phosphatase 53 U/L (40-110); Anion Gap 11 mmol/L (10-20); BUN (Urea Nitrogen) 8 mg/dL (7.0-18.7); Bilirubin, Total 1.4 mg/dL (0.3-1.2); Calc. Creatinine Clearance 0 mL/min (70-130); Carbon Dioxide 21 mmol/L (22-29); Chloride 109 mmol/L (98-107); Estimated GFR 116; Globulin 3.2 g/dL (2.4-3.5); Glucose 92 mg/dL (70-105); Potassium 4.1 mmol/L (3.5-5.1); Protein, Total 7.2 g/dL (6.0-8.3); Sodium 137 mmol/L (136-145)
[2024-10-10] MEDS ORDERED: Morphine 2 MG/ML VIAL ONE (23:34)
== END 2024-10-10 23:56 | disposition home or self-care (01) ==
LOC: NAV ERS 20:59
DX: D57.00 Hb-SS disease with crisis, unspecified (principal)
CPT/HCPCS: 85046; 96374; 96375; 96376; J2270; J2272; J2550; J7030

== ENCOUNTER 2024-11-08 07:13 | Emergency (ER) | payer OTHER ==
[2024-11-08 08:05] LABS: ALT (SGPT) 28 U/L (Less than 34); AST (SGOT) 35 U/L (11-34); Albumin 4.1 g/dL (3.1-4.5); Alkaline Phosphatase 47 U/L (40-110); Anion Gap 13 mmol/L (10-20); BUN (Urea Nitrogen) 7 mg/dL (7.0-18.7); Bilirubin, Total 1.5 mg/dL (0.3-1.2); Calc. Creatinine Clearance 0 mL/min (70-130); Carbon Dioxide 22 mmol/L (22-29); Chloride 106 mmol/L (98-107); Estimated GFR 118; Globulin 3.1 g/dL (2.4-3.5); Glucose 100 mg/dL (70-105); Potassium 3.8 mmol/L (3.5-5.1); Protein, Total 7.2 g/dL (6.0-8.3); Sodium 137 mmol/L (136-145)
[2024-11-08 08:23] LABS: Hemoglobin 10.3 g/dL (12.0-16.0); Red Blood Cell (RBC) Count 3.63 mill/uL (4.20-5.40); White Blood Cell (WBC) Count 13.7 10x3/uL (4.8-10.8)
[2024-11-08 08:24] LABS: Band 1 % (5-11); Eosinophils 4 % (0-10); Hematocrit 30.6 % (36.0-47.0); Lymphocytes 40 % (21-51); Manual Diff?? YES; Mean Corpuscular HGB CONC 33.8 g/dL (32.0-36.0); Mean Corpuscular Hemoglobin 28.5 pg (27.0-31.0); Mean Corpuscular Volume 84.4 fl (78.0-98.0); Mean Platelet Volume 6.8 fL (7.4-10.4); Monocytes 4 % (0-10); Neutrophil 51 % (42-75); Platelet Count 351 10x3/uL (130-400); RBC Distribution Width 13.1 % (11.5-14.5)
[2024-11-08 08:25] LABS: Nucleated RBC (Manual Ct) 1 % (0); Target Cells MODERATE= 6-15 cells (100X) (0-1/hpf)
[2024-11-08 08:26] LABS: Platelet Adequacy Comment Platelets Normal
[2024-11-08 08:28] LABS: MDiff Complete? YES
[2024-11-08] MEDS ORDERED: Morphine 2 MG/ML VIAL ONE (08:33)
[2024-11-08] MEDS ORDERED: Sodium Chloride 0.9% 500 ML ONE (08:33)
[2024-11-08] MEDS ORDERED: Dextrose 5 %-0.45 % NaCl 1,000 ML ONE (08:33)
[2024-11-08] MEDS ORDERED: diphenhydrAMINE 50 MG/ML VIAL ONE (08:33)
== END 2024-11-08 10:15 | disposition home or self-care (01) ==
LOC: NAV ERS 07:13
DX: M54.50 Low back pain, unspecified (principal); D57.00 Hb-SS disease with crisis, unspecified
CPT/HCPCS: 80053; 85025; 85046; 94760; 96361; 96374; 96375; J1200; J2272; J7030; J7042

== ENCOUNTER 2024-12-21 19:00 | Emergency (ER) | payer OTHER ==
[2024-12-21] MEDS ORDERED: diphenhydrAMINE 50 MG/ML VIAL ONE (20:17)
[2024-12-21] MEDS ORDERED: Morphine 4 MG/ML VIAL ONE ×2 (20:17→22:04)
[2024-12-21] MEDS ORDERED: Sodium Chloride 0.9% 1,000 ML ONE (20:17)
[2024-12-21 20:23] LABS: Bilirubin Negative (Negative); Blood, Urine Negative (Negative); Clarity Clear (Clear); Glucose, Urine (Dipstick) Negative (Negative); Ketone, Urine Negative (Negative); Leukocyte Negative (Negative); Nitrite Negative (Negative); Protein, Urine (Dipstick) Negative (Neg-Trace); pH, Urine 6.5 (5.0-9.0)
[2024-12-21 20:33] LABS: Amphetamine Negative (Negative); Barbiturates Screen Negative (Negative); Benzodiazepine Screen Negative (Negative); Cocaine Metabolite Screen Negative (Negative); Methadone Negative (Negative); Methamphetamine Negative (Negative); Opiate Screen Negative (Negative); Oxycodone Screen Negative (Negative); Phencyclidine (PCP) Negative (Negative); THC/Cannabinoid Screen Negative (Negative); Tricyclic Screen Negative (Negative)
[2024-12-21 20:41] LABS: ALT (SGPT) 14 U/L (Less than 34); AST (SGOT) 23 U/L (11-34); Albumin 4.2 g/dL (3.1-4.5); Alkaline Phosphatase 47 U/L (40-110); Anion Gap 14 mmol/L (10-20); BUN (Urea Nitrogen) 6 mg/dL (7.0-18.7); Bilirubin, Total 1.6 mg/dL (0.3-1.2); Calc. Creatinine Clearance 0 mL/min (70-130); Calcium 9.2 mg/dL (7.8-10.44); Carbon Dioxide 21 mmol/L (22-29); Chloride 107 mmol/L (98-107); Estimated GFR 119; Globulin 3.1 g/dL (2.4-3.5); Glucose 78 mg/dL (70-105); Potassium 3.6 mmol/L (3.5-5.1); Protein, Total 7.3 g/dL (6.0-8.3); Sodium 138 mmol/L (136-145)
[2024-12-21 20:50] LABS: Hematocrit 30.1 % (36.0-47.0); Hemoglobin 10.2 g/dL (12.0-16.0); Mean Corpuscular HGB CONC 33.8 g/dL (32.0-36.0); Mean Corpuscular Hemoglobin 28.7 pg (27.0-31.0); Mean Corpuscular Volume 85.1 fl (78.0-98.0); Mean Platelet Volume 5.7 fL (7.4-10.4); Platelet Count 363 10x3/uL (130-400); RBC Distribution Width 13.8 % (11.5-14.5); Red Blood Cell (RBC) Count 3.54 mill/uL (4.20-5.40)
[2024-12-21 21:06] LABS: Bacteria/HPF Rare-Few HPF (None Seen); CAUTI Indications for Culture Fever or rigors; RBC/HPF 0-3 HPF (0-3); Squamous Epithelial 0-3 HPF (0-3); Urine Culture Reflex No No; WBC/HPF 0-3 HPF (0-3)
[2024-12-21 21:19] LABS: MDiff Complete? YES
[2024-12-21 21:29] LABS: Eosinophils 3 % (0-10); Lymphocytes 38 % (21-51); Metamyelocyte 1 % (0-0); Monocytes 4 % (0-10); Neutrophil 51 % (42-75); Reactive Lymphocytes 3 % (0-10)
[2024-12-21 21:31] LABS: Anisocytosis SLIGHT = 6-15 cells (100X) (0-5/hpf); Poikilocytosis SLIGHT = 6-15 cells (100X) (0-5/hpf)
[2024-12-21 21:32] LABS: Target Cells MODERATE= 6-15 cells (100X) (0-1/hpf)
[2024-12-21 21:36] LABS: Helmet Cells SLIGHT = 2-5 cells (100X) (0-1/hpf); Schistocytes SLIGHT = 2-5 cells (100X) (0-1/hpf)
[2024-12-21 21:37] LABS: Platelet Adequacy Comment Appears Adequate
[2024-12-21 21:39] LABS: White Blood Cell (WBC) Count 20.1 10x3/uL (4.8-10.8)
== END 2024-12-21 22:45 | disposition home or self-care (01) ==
LOC: NAV ERS 19:00
DX: D57.00 Hb-SS disease with crisis, unspecified (principal)
CPT/HCPCS: 80053; 80306; 81001; 85025; 96361; 96374; 96375; 96376; J1200; J2270; J7030

== ENCOUNTER 2025-06-08 19:03 | Emergency (ER) | payer MEDICAID ==
[2025-06-08 20:27] LABS: #Basophils 0.2 thou/uL (0.0-0.2); #Eosinophils 0.1 thou/uL (0.0-0.7); #Lymphocytes 5.1 thou/uL (1.20-3.40); #Monocytes 0.6 thou/uL (0.11-0.59); #Neutrophils 4.3 thou/uL (1.40-6.50); %Basophils 1.7 % (0.0-1.0); %Eosinophils 1.1 % (0.0-10.0); %Lymphocytes 49.8 % (21.0-51.0); %Monocytes 5.7 % (0.0-10.0); %Neutrophils 41.7 % (42.0-75.0); Hematocrit 28.2 % (36.0-47.0); Hemoglobin 10.8 g/dL (12.0-16.0); Mean Corpuscular Hemoglobin 37.4 pg (27.0-31.0); Mean Corpuscular Volume 97.8 fl (78.0-98.0); Platelet Count 323 10x3/uL (130-400); Red Blood Cell (RBC) Count 2.88 mill/uL (4.20-5.40); White Blood Cell (WBC) Count 10.3 10x3/uL (4.8-10.8)
[2025-06-08] MEDS ORDERED: diphenhydrAMINE 25 MG CAP ONE (20:33)
[2025-06-08 20:34] LABS: ALT (SGPT) 24 U/L (Less than 34); AST (SGOT) 31 U/L (11-34); Albumin 4.4 g/dL (3.1-4.5); Alkaline Phosphatase 51 U/L (40-110); Anion Gap 16 mmol/L (10-20); BUN (Urea Nitrogen) 9 mg/dL (7.0-18.7); Bilirubin, Total 1.4 mg/dL (0.3-1.2); Calc. Creatinine Clearance 0 mL/min (70-130); Calcium 8.6 mg/dL (7.8-10.44); Carbon Dioxide 19 mmol/L (22-29); Chloride 105 mmol/L (98-107); Globulin 3.2 g/dL (2.4-3.5); Glucose 86 mg/dL (70-105); Potassium 3.7 mmol/L (3.5-5.1); Sodium 136 mmol/L (136-145)
[2025-06-08 21:22] LABS: Platelet Adequacy Comment Appears Adequate
[2025-06-08 21:23] LABS: Poikilocytosis SLIGHT = 6-15 cells (100X) (0-5/hpf); Target Cells SLIGHT = 2-5 cells (100X) (0-1/hpf)
== END 2025-06-08 21:30 | disposition home or self-care (01) ==
LOC: NAV ERS 19:03
DX: D57.00 Hb-SS disease with crisis, unspecified (principal)
CPT/HCPCS: 80053; 85025; 85046; 96374; 96375; J2550